=== PATIENT | female | born 1990 | race Caucasian/White ===

== ENCOUNTER 2016-11-15 15:31 | Emergency (ER) | payer MEDICARE ==
[2016-11-15 16:00] VITALS: BMI 29.0
[2016-11-15 17:06] LABS: BASO # 0.1 K/uL (0.0-0.2); BASO % 0.5 % (0.0-2.0); EOS # 0.2 K/uL (0.0-0.7); EOS % 1.2 % (0.0-4.0); HEMATOCRIT 37.9 % (34.0-47.0); LYMPH # 3.9 K/uL (1.0-4.3); LYMPH % 26.5 % (20.0-40.0); MEAN CELL VOLUME 83.9 fL (81.0-99.0); MEAN CORPUSCULAR HEMOGLOBIN 27.3 pg (27.0-31.0); MEAN CORPUSCULAR HGB CONC 32.6 g/dL (33.0-37.0); MEAN PLATELET VOLUME 7.5 fL (7.2-11.7); MONO # 0.8 K/uL (0.0-0.8); MONO % 5.6 % (0.0-10.0); RED CELL DISTRIBUTION WIDTH 13.4 % (11.5-14.5); WHITE BLOOD COUNT 14.7 K/uL (4.8-10.8)
[2016-11-15 17:14] LABS: CHLORIDE 104 mmol/L (98-107); SODIUM 142 mmol/L (132-148)
[2016-11-15 17:16] LABS: BILIRUBIN,TOTAL < 0.1 mg/dL (0.2-1.3); GFR AFRICAN-AMERICAN > 60
[2016-11-15 17:17] LABS: ALB/GLOB RATIO 1.2 (1.0-2.1); ALKALINE PHOSPHATASE 94 U/L (38-126); AST/SGOT 23 U/L (14-36); CARBON DIOXIDE 26 mmol/L (22-30); TOTAL PROTEIN 7.4 g/dL (6.3-8.3)
[2016-11-15 17:18] LABS: ALCOHOL SERUM < 10 mg/dl (0-10)
--- NOTE | 2016-11-15 17:27 | C.PDOC ---
History Of Present Illness 26 year old female with a history of schizophrenia, presents to the ED accompanied by her mother with complaints that her TV is talking to her. Patient states it is making her upset and telling her to threaten other people. She has been angry but not acting out and notes she ran out of her medication a few months ago but never refilled it. Denies homicidal ideation, suicidal ideation, or any physical complaints at this time. Time Seen by Provider: 11/15/16 16:05 Chief Complaint (Nursing): Psychiatric Evaluation History Per: Patient History/Exam Limitations: no limitations Onset/Duration Of Symptoms: Days Current Symptoms Are (Timing): Still Present Suicide/Self Injury Attempted (Context): None Modifying Factor(s): None Severity: Mild Associated Symptoms: Anger. denies: Suicidal Thoughts Past Medical History Reviewed: Historical Data, Nursing Documentation, Vital Signs Vital Signs: Last Vital Signs Temp 98.2 F 11/15/16 19:04 Pulse 90 11/15/16 19:04 Resp 18 11/15/16 19:04 BP 118/84 11/15/16 19:04 Pulse Ox 98 11/15/16 19:12 - Medical History PMH: Personality Disorder, Schizophrenia Surgical History: No Surg Hx Family History: States: Unknown Family Hx - Social History Hx Tobacco Use: No Hx Alcohol Use: Yes (''OCCASSIONALLY'') Hx Substance Use: No Review Of Systems Except As Marked, All Systems Reviewed And Found Negative. Constitutional: Negative for: Fever, Chills Respiratory: Negative for: Shortness of Breath Psych: Positive for: Psychosis. Negative for: Suicidal ideation Physical Exam - Physical Exam Appears: Non-toxic, No Acute Distress Skin: Normal Color, Warm, Dry Head: Atraumatic, Normacephalic Oral Mucosa: Moist Cardiovascular: Rhythm Regular, No Murmur Respiratory: Normal Breath Sounds, No Rhonchi, No Wheezing Gastrointestinal/Abdominal: Soft, No Tenderness, No Guarding Extremity: Normal ROM Neurological/Psych: Oriented x3, Normal Speech, Normal Cognition ED Course And Treatment - Laboratory Results Result Diagrams: 11/15/16 17:03 11/15/16 17:03 O2 Sat by Pulse Oximetry: 98 (Room air) Pulse Ox Interpretation: Normal Progress Note: Crisis contacted, blood work and Urinalysis ordered and reviewed. Medical Decision Making Medical Decision Making: Pt is medically stable for PES evaluation / admission Pt seen by crisis, discussed with dr Charles plan ativan now, apt made at [facility] for tomorrow Disposition Counseled Patient/Family Regarding: Need For Followup - Disposition Disposition: HOME/ ROUTINE Disposition Time: 19:10 Condition: GOOD Additional Instructions: Follow up at [facility] tomorrow Instructions: Schizophrenia (ED) - Clinical Impression Clinical Impression: Schizophrenia - Scribe Statement The provider has reviewed the documentation as recorded by the Scribe Kaur Shanks. Provider Attestation: All medical record entries made by the Scribe were at my direction and personally dictated by me. I have reviewed the chart and agree that the record accurately reflects my personal performance of the history, physical exam, medical decision making, and the department course for this patient. I have also personally directed, reviewed, and agree with the discharge instructions and disposition.
[2016-11-15 17:43] LABS: ALT/SGPT 15 U/L (9-52)
[2016-11-15 17:44] LABS: BLOOD UREA NITROGEN 10 mg/dL (7-17); GLUCOSE,RANDOM 92 mg/dL (65-105)
[2016-11-15 17:57] LABS: RBC URINE 1 /hpf (0-3); URINE BACTERIA RARE (<OCC); URINE BILIRUBIN NEGATIVE (NEGATIVE); URINE BLOOD NEGATIVE (NEGATIVE); URINE COLOR Yellow (YELLOW); URINE GLUCOSE (UA) NORMAL (Normal); URINE KETONE NEGATIVE (NEGATIVE); URINE LEUKOCYTE ESTERASE NEG Leu/uL (Negative); URINE PROTEIN NEGATIVE (NEGATIVE); URINE UROBILINOGEN NORMAL mg/dL (0.2-1.0); WBC URINE 2 /hpf (0-5)
[2016-11-15 19:05] VITALS: BP 118/84; PULSE 90; RESP 18; TEMP 98.2
[2016-11-15 19:12] VITALS: O2SAT 98
== END 2016-11-15 19:15 | disposition home or self-care (01) ==
LOC: C.ER 15:31
DX: F20.9 Schizophrenia, unspecified (principal)
CPT/HCPCS: 36415; 80053; 81001; 84703; 85025; 99284; G0480

== ENCOUNTER 2016-12-31 23:13 | Emergency (ER) | payer MEDICARE ==
[2016-12-31 23:13] VITALS: BMI 29.0
[2017-01-01] MEDS ORDERED: Naproxen 550 mg Tab PO STA (00:08)
[2017-01-01] MEDS ORDERED: Naproxen 550 mg Tab PO ONE (00:14)
[2017-01-01 00:20] VITALS: BP 118/81; PULSE 72; RESP 18; TEMP 98.2; O2SAT 99
--- NOTE | 2017-01-01 00:34 | C.PDOC ---
Time Seen by Provider: 12/31/16 23:45 Chief Complaint (Nursing): Dental Pain History Per: Patient Onset/Duration Of Symptoms: Days, Intermittent Episodes Current Symptoms Are (Timing): Still Present Severity: Moderate Dental/Oral: 1 - Pain Description Of Pain/Injury (Context): Pain radiating to left side of head. Quality: Positive for: "Pain" Additional History Per: Prior Records Past Medical History Reviewed: Historical Data, Nursing Documentation, Vital Signs Vital Signs: Last Vital Signs Temp 98.2 F 12/31/16 23:20 Pulse 72 01/01/17 00:19 Resp 18 01/01/17 00:19 BP 118/81 01/01/17 00:19 Pulse Ox 99 01/01/17 00:19 - Medical History PMH: Personality Disorder, Schizophrenia Surgical History: No Surg Hx Family History: States: Unknown Family Hx - Social History Hx Tobacco Use: No Hx Alcohol Use: Yes (''OCCASSIONALLY'') Hx Substance Use: No - Immunization History Hx Tetanus Toxoid Vaccination: No Hx Influenza Vaccination: No Hx Pneumococcal Vaccination: No Review Of Systems Except As Marked, All Systems Reviewed And Found Negative. Constitutional: Negative for: Fever, Weakness Eyes: Negative for: Pain, Vision Change ENT: Negative for: Ear Pain, Ear Discharge, Throat Pain, Throat Swelling Cardiovascular: Negative for: Chest Pain Respiratory: Negative for: Cough, Shortness of Breath Gastrointestinal: Negative for: Nausea, Vomiting, Abdominal Pain Musculoskeletal: Negative for: Neck Pain Skin: Negative for: Rash Neurological: Positive for: Headache. Negative for: Weakness, Numbness, Incoordination, Change in Speech, Confusion, Seizures, Altered Mental Status, Dizziness Physical Exam - Physical Exam Appears: Non-toxic, No Acute Distress Skin: Normal Color, Warm, Dry, No Rash Head: Atraumatic, Normacephalic Eye(s): bilateral: Normal Inspection, PERRL, EOMI Ear(s): Bilateral: Normal Oral Mucosa: Moist, No Drooling, No Trismus Tongue: Normal Appearing Lips: Normal Appearing Teeth: Caries, Tender To Palpation (left upper third molar) Gingiva: No Abscess Throat: Normal Neck: Normal ROM, Supple Lymphatic: No Adenopathy Cardiovascular: Rhythm Regular Respiratory: Normal Breath Sounds, No Accessory Muscle Use Gastrointestinal/Abdominal: Soft, No Tenderness Extremity: Normal ROM Neurological/Psych: Oriented x3, Normal Speech, Normal Cranial Nerves, Normal Motor, Normal Sensation ED Course And Treatment O2 Sat by Pulse Oximetry: 99 Pulse Ox Interpretation: Normal Reassessment Condition: Improved Disposition Counseled Patient/Family Regarding: Diagnosis, Need For Followup, Rx Given - Disposition Referrals: Samara Love MD [Staff Provider] - Disposition: HOME/ ROUTINE Disposition Time: 00:36 Condition: IMPROVED Additional Instructions: Follow up with your primary doctor and with your dentist. Return to the ER if you develop fever, redness, swelling, pus drainage, worsening of symptoms or if you have any other concerns. Prescriptions: Naproxen [Naprosyn] 1 tab PO BID PRN #20 tab PRN Reason: Pain Penicillin VK [Pen-Vee K] 2 tab PO BID #28 tab Instructions: Toothache (ED) - Clinical Impression Clinical Impression: Toothache
== END 2017-01-01 00:40 | disposition home or self-care (01) ==
LOC: C.ER 23:13
DX: K08.89 Other specified disorders of teeth and supporting structures (principal)

== ENCOUNTER 2017-09-03 19:17 | Emergency (ER) | payer MEDICARE ==
[2017-09-03 19:17] VITALS: BMI 29.0
[2017-09-03 20:26] VITALS: RESP 20
--- NOTE | 2017-09-03 22:39 | C.PDOC ---
History Of Present Illness 26 y/o female presents to the ED for evaluation after experiencing episodes of vomiting today. Patient states she bought a cactus plant and suspects this may have caused her to become sick. After ED arrival, patient began requesting food to eat. Patient was informed that since her initial complaint was related to vomiting, she cannot be given meals at this time. Patient grew increasingly agitated and verbalized suicidal ideation. She denies fever, chills, abdominal pain at this time. Time Seen by Provider: 09/03/17 21:33 Chief Complaint (Nursing): GI Problem History Per: Patient History/Exam Limitations: no limitations Onset/Duration Of Symptoms: Hrs Current Symptoms Are (Timing): Still Present Additional History Per: Patient Past Medical History Reviewed: Historical Data, Nursing Documentation, Vital Signs Vital Signs: Last Vital Signs Temp 98.6 F 09/04/17 05:30 Pulse 94 H 09/04/17 05:30 Resp 20 09/04/17 05:30 BP 102/74 09/04/17 05:30 Pulse Ox 100 09/04/17 07:01 - Medical History PMH: Migraine, Personality Disorder, Schizophrenia Denies: HIV, HTN, Chronic Kidney Disease, Seizures, Sexually Transmitted Disease Surgical History: No Surg Hx Family History: States: Unknown Family Hx - Social History Hx Tobacco Use: No Hx Alcohol Use: No Hx Substance Use: No - Immunization History Hx Tetanus Toxoid Vaccination: No Hx Influenza Vaccination: No Hx Pneumococcal Vaccination: No Review Of Systems Constitutional: Negative for: Fever, Chills Gastrointestinal: Positive for: Vomiting. Negative for: Abdominal Pain Physical Exam - Physical Exam Appears: Non-toxic Skin: Normal Color, Warm, Dry Head: Atraumatic, Normacephalic Eye(s): bilateral: Normal Inspection Oral Mucosa: Moist Neck: Supple Chest: Symmetrical, No Deformity, No Tenderness Cardiovascular: Rhythm Regular, No Murmur Respiratory: Normal Breath Sounds, No Rales, No Rhonchi, No Wheezing Extremity: Normal ROM, Capillary Refill (less than 2 seconds ) Neurological/Psych: Oriented x3, Normal Speech, Normal Cognition Gait: Steady ED Course And Treatment - Laboratory Results Result Diagrams: 09/04/17 00:09 09/04/17 00:09 O2 Sat by Pulse Oximetry: 100 Medical Decision Making Medical Decision Making: Bloodwork and UA ordered and reviewed. Ativan IM and Haldol IM administered. Patient placed on 1:1 observation and is pending crisis evaluation. 60am pt has been cleared by crisis team and Dr Koo; I hhave requested a re- assessment of patient, to be done on next shift. 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 - Scribe Statement The provider has reviewed the documentation as recorded by the Scribe (Elizabeth Gomez) All medical record entries made by the Scribe were at my direction and personally dictated by me. I have reviewed the chart and agree that the record accurately reflects my personal performance of the history, physical exam, medical decision making, and the department course for this patient. I have also personally directed, reviewed, and agree with the discharge instructions and disposition. Physician Patient Turnover Patient Signed Over To: Leticia Marquez Handoff Comments: pending re-evaluation by crisis team for dispo
[2017-09-04 00:12] LABS: BASO # 0.1 K/uL (0.0-0.2); BASO % 0.6 % (0.0-2.0); EOS # 0.1 K/uL (0.0-0.7); EOS % 0.4 % (0.0-4.0); HEMOGLOBIN 11.8 g/dL (11.0-16.0); LYMPH # 3.2 K/uL (1.0-4.3); MEAN CELL VOLUME 82.3 fL (81.0-99.0); MEAN CORPUSCULAR HEMOGLOBIN 27.5 pg (27.0-31.0); MEAN CORPUSCULAR HGB CONC 33.4 g/dL (33.0-37.0); MEAN PLATELET VOLUME 7.7 fL (7.2-11.7); MONO # 0.6 K/uL (0.0-0.8); MONO % 4.1 % (0.0-10.0); NEUT # 10.5 K/uL (1.8-7.0); NEUT % 72.9 % (50.0-75.0); RBC 4.3 Mil/uL (3.80-5.20); RED CELL DISTRIBUTION WIDTH 14.1 % (11.5-14.5); WHITE BLOOD COUNT 14.5 K/uL (4.8-10.8)
[2017-09-04 00:19] LABS: GRANULAR CAST 3 /lpf (0-1); SQUAMOUS EPITHIAL 21 /hpf (0-5); URINE AMORPHOUS SEDIMENT OCC /ul (<OCC); URINE BACTERIA FEW (<OCC); URINE BILIRUBIN NEGATIVE (NEGATIVE); URINE BLOOD NEGATIVE (NEGATIVE); URINE CALCIUM OXALATE CRYSTALS OCC /hpf (<OCC); URINE CLARITY Hazy (Clear); URINE COLOR Yellow (YELLOW); URINE GLUCOSE (UA) NORMAL (Normal); URINE LEUKOCYTE ESTERASE NEG Leu/uL (Negative); URINE NITRATE NEGATIVE (NEGATIVE); URINE PROTEIN NEGATIVE (NEGATIVE); URINE UROBILINOGEN NORMAL mg/dL (0.2-1.0)
[2017-09-04 00:22] LABS: ALB/GLOB RATIO 1.1 (1.0-2.1); ALBUMIN 3.8 g/dL (3.5-5.0); ALT/SGPT 25 U/L (9-52); AST/SGOT 23 U/L (14-36); BLOOD UREA NITROGEN 9 mg/dL (7-17); CALCIUM 9.5 mg/dl (8.6-10.4); GFR AFRICAN-AMERICAN > 60; GFR NON-AFRICAN AMERICAN > 60
[2017-09-04 00:27] LABS: BARBITURATES, UR NEGATIVE (NEGATIVE); BENZODIAZEPINES, UR NEGATIVE (NEGATIVE); OPIATES, UR NEGATIVE (NEGATIVE); PHENCYCLIDINE, UR NEGATIVE (NEGATIVE)
[2017-09-04 07:37] VITALS: O2SAT 99
[2017-09-04 08:56] VITALS: BP 108/75; PULSE 108; TEMP 98.5
== END 2017-09-04 09:18 | disposition home or self-care (01) ==
LOC: C.ER 19:17
DX: F32.9 Major depressive disorder, single episode, unspecified (principal)
CPT/HCPCS: 80053; 81001; 85025; 96372; 99285; G0480; J1630; J2060

== ENCOUNTER 2017-09-19 12:30 | Emergency (ER) | payer MEDICARE, OTHER ==
[2017-09-19 12:46] VITALS: BMI 23.8
[2017-09-19 12:53] VITALS: O2SAT 96
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
[2017-09-19 14:11] VITALS: BP 112/79; PULSE 83; RESP 18; TEMP 98
== END 2017-09-19 13:30 | disposition home or self-care (01) ==
LOC: C.ER 12:30
DX: S16.1XXA Strain of muscle, fascia and tendon at neck level, initial encounter (principal); V43.52XA Car driver injured in collision with other type car in traffic accident, initial encounter

== ENCOUNTER 2017-09-26 12:42 | Emergency (ER) | payer MEDICARE, OTHER ==
[2017-09-26 12:55] VITALS: BMI 29.0
[2017-09-26 12:58] VITALS: BP 119/85; PULSE 97; RESP 18; TEMP 97.9; O2SAT 96
--- NOTE | 2017-09-26 13:12 | C.PDOC ---
History Of Present Illness 27 year old female presents to ED with complaints of migraine headache associated with nausea since this morning. She describes pain as pressure and just pain to frontal area. She reports past similar headaches in past, and that this is not the worst headache of her life. She took Tylenol without relief. She states last time she came to ED they gave her medications that worked. Denies fever, chills, visual changes, photophobia, weakness, numbness, change in sensation. Time Seen by Provider: 09/26/17 13:00 Chief Complaint (Nursing): Headache History Per: Patient History/Exam Limitations: no limitations Onset/Duration Of Symptoms: Hrs Current Symptoms Are (Timing): Still Present Quality: Pressure Preceeding Symptoms: Known Migraine Symptoms. denies: Visual Disturbances Associated Symptoms: Nausea. denies: Photophobia, Blurred Vision, Vomiting, Extremity Weakness Recent travel outside of the [place]: No Additional History Per: Patient Past Medical History Reviewed: Historical Data, Nursing Documentation, Vital Signs Vital Signs: Last Vital Signs Temp 97.9 F 09/26/17 12:55 Pulse 97 H 09/26/17 12:55 Resp 18 09/26/17 12:55 BP 119/85 09/26/17 12:55 Pulse Ox 96 09/26/17 13:29 - Medical History PMH: Migraine, Personality Disorder, Schizophrenia Denies: HIV, HTN, Chronic Kidney Disease, Seizures, Sexually Transmitted Disease Family History: States: Unknown Family Hx - Social History Hx Tobacco Use: No Hx Alcohol Use: No Hx Substance Use: No - Immunization History Hx Tetanus Toxoid Vaccination: No Hx Influenza Vaccination: No Hx Pneumococcal Vaccination: No Review Of Systems Except As Marked, All Systems Reviewed And Found Negative. Constitutional: Negative for: Fever, Chills Eyes: Negative for: Vision Change Gastrointestinal: Positive for: Nausea. Negative for: Vomiting, Abdominal Pain Neurological: Positive for: Headache. Negative for: Weakness, Numbness, Dizziness Physical Exam - Physical Exam Appears: Well, Non-toxic, No Acute Distress Skin: Normal Color, Warm, Dry Head: Atraumatic, Normacephalic Eye(s): bilateral: Normal Inspection, PERRL, EOMI, Other (no nystagmus) Oral Mucosa: Moist Neck: Supple, No Other (no meningeal signs) Chest: Symmetrical, No Tenderness Cardiovascular: Rhythm Regular, No Edema, No Murmur Respiratory: Normal Breath Sounds, No Accessory Muscle Use, No Rales, No Rhonchi , No Wheezing Extremity: Normal ROM (Able to move all extremities), No Tenderness, Capillary Refill (<2 seconds), No Deformity, No Swelling Neurological/Psych: Oriented x3, Normal Speech, Normal Cranial Nerves (2-12 grossly intact), Normal Motor (Equal 5/5 strength bilaterally), Normal Sensation , No Other (no focal deficits) ED Course And Treatment O2 Sat by Pulse Oximetry: 96 (RA) Pulse Ox Interpretation: Normal Medical Decision Making Medical Decision Making: Impressin: headache Plan: * Toradol * Reglan Reassess 1430 Patient reevaluated and reports feeling better, headache mostly resolved. She remains afebrile alert and oriented. No nuchal rigidity or neuro deficits. Patient is stable for discharge. Rx given. Patient advised to follow up with PCP Disposition Counseled Patient/Family Regarding: Diagnosis, Need For Followup, Rx Given - Disposition Referrals: Samara Love MD [Staff Provider] - Disposition: HOME/ ROUTINE Disposition Time: 14:39 Condition: STABLE Additional Instructions: Follow up with your primary medical doctor in 2-5 days for further evaluation. Take medications as prescribed. Return to the emergency department at any time if symptoms persist or worsen. 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 - Scribe Statement The provider has reviewed the documentation as recorded by the Peteribmireya Gomez All medical record entries made by the Sherri were at my direction and personally dictated by me. I have reviewed the chart and agree that the record accurately reflects my personal performance of the history, physical exam, medical decision making, and the department course for this patient. I have also personally directed, reviewed, and agree with the discharge instructions and disposition.
== END 2017-09-26 14:53 | disposition home or self-care (01) ==
LOC: C.ER 12:42
DX: R51 Headache (principal)
CPT/HCPCS: 96372; 99284; J1885

== ENCOUNTER 2017-10-21 15:16 | Emergency (ER) | payer MEDICARE, OTHER ==
[2017-10-21 15:17] VITALS: BMI 29.0
[2017-10-21 15:32] VITALS: O2SAT 100
[2017-10-21] MEDS ORDERED: Apap-Butalbital-Caffeine 325-50-40mg Tab PO STA (15:48)
[2017-10-21] MEDS ORDERED: Apap-Butalbital-Caffeine 325-50-40mg Tab ONE (15:58)
[2017-10-21 16:10] VITALS: BP 110/79; PULSE 89; RESP 18; TEMP 97.9
--- NOTE | 2017-10-21 16:23 | C.PDOC ---
History Of Present Illness 27-year-old female, presents to the emergency department with complaints of migraine headache since yesterday and needs refill of her medication. She reports history of migraines and this feels similar to prior headaches. She called Dr Love who is unable to see her until next month. She reports nausea yesterday but not today and denies any vomiting. Denies any fever, neck pain, vision changes, dizziness or other associated complaints. Time Seen by Provider: 10/21/17 15:42 Chief Complaint (Nursing): Med Refill History Per: Patient History/Exam Limitations: no limitations Current Symptoms Are (Timing): Still Present Past Medical History Reviewed: Historical Data, Nursing Documentation, Vital Signs Vital Signs: Last Vital Signs Temp 97.9 F 10/21/17 16:09 Pulse 89 10/21/17 16:09 Resp 18 10/21/17 16:09 BP 110/79 10/21/17 16:09 Pulse Ox 100 10/21/17 16:40 - Medical History PMH: Migraine, Personality Disorder, Schizophrenia Family History: States: No Known Family Hx - Social History Hx Tobacco Use: No Hx Alcohol Use: No Hx Substance Use: No - Immunization History Hx Tetanus Toxoid Vaccination: No Hx Influenza Vaccination: No Hx Pneumococcal Vaccination: No Review Of Systems Eyes: Negative for: Pain, Vision Change Respiratory: Negative for: Cough Gastrointestinal: Positive for: Nausea. Negative for: Vomiting Musculoskeletal: Negative for: Neck Pain, Back Pain Neurological: Positive for: Headache. Negative for: Weakness, Numbness, Dizziness Physical Exam - Physical Exam Appears: Non-toxic, No Acute Distress, Other (strong body odor) Skin: Normal Color, Warm, Dry, No Rash Head: Atraumatic, Normacephalic Eye(s): bilateral: Normal Inspection, PERRL, EOMI Nose: Normal Oral Mucosa: Moist Neck: Normal ROM Chest: Symmetrical Cardiovascular: Rhythm Regular, No Murmur Respiratory: Normal Breath Sounds, No Wheezing Extremity: Normal ROM, No Tenderness, No Deformity, No Swelling Neurological/Psych: Oriented x3, Normal Speech, Normal Cranial Nerves, No Cerebellar Signs, Normal Motor, Normal Sensation, Other (no focal deficit) Gait: Steady ED Course And Treatment O2 Sat by Pulse Oximetry: 100 Medical Decision Making Medical Decision Making: Patient with history of migraines and asking for medication refill. Fioricet PO given. Patient in no acute distress with normal neuro and stable vital signs. Rx given. Patient instructed to follow up with PMD Disposition Counseled Patient/Family Regarding: Diagnosis, Need For Followup, Rx Given - Disposition Referrals: Samara Love MD [Staff Provider] - Disposition: HOME/ ROUTINE Disposition Time: 16:05 Condition: GOOD Additional Instructions: Follow up with your primary medical doctor in 2-5 days for further evaluation. Take medications as prescribed. Return to the emergency department at any time if symptoms persist or worsen. 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 - Scribe Statement The provider has reviewed the documentation as recorded by the Scribe (Simon Cutler) All medical record entries made by the Scribe were at my direction and personally dictated by me. I have reviewed the chart and agree that the record accurately reflects my personal performance of the history, physical exam, medical decision making, and the department course for this patient. I have also personally directed, reviewed, and agree with the discharge instructions and disposition.
== END 2017-10-21 16:10 | disposition home or self-care (01) ==
LOC: C.ER 15:16
DX: G43.909 Migraine, unspecified, not intractable, without status migrainosus (principal)

== ENCOUNTER 2017-11-01 11:41 | Emergency (ER) | payer MEDICARE ==
[2017-11-01 11:41] VITALS: BMI 29.0
[2017-11-01 12:08] VITALS: BP 119/83; PULSE 94; RESP 18; TEMP 97.6; O2SAT 99
== END 2017-11-01 12:15 | disposition left against medical advice (07) ==
LOC: C.ER 11:41
DX: Z02.89 Encounter for other administrative examinations (principal); G43.909 Migraine, unspecified, not intractable, without status migrainosus

== ENCOUNTER 2017-11-05 19:00 | Emergency (ER) | payer MEDICARE ==
[2017-11-05 19:00] VITALS: BMI 29.0
[2017-11-05 19:13] VITALS: BP 110/70; PULSE 70; RESP 14; TEMP 97.7; O2SAT 97
[2017-11-05] MEDS ORDERED: Apap-Butalbital-Caffeine 325-50-40mg Tab PO STA ×2 (19:54)
[2017-11-05] MEDS ORDERED: Apap-Butalbital-Caffeine 325-50-40mg Tab ONE (20:07)
--- NOTE | 2017-11-05 20:27 | C.PDOC ---
History Of Present Illness 27 year old female, whose PMHx includes migraine headaches, presents to the ED for evaluation of headache which worsened tonight. Patient states her symptoms are similar to prior and she ran out of her medications. She reports associated nausea and photophobia. She denies vomiting, dizziness, neck pain. Time Seen by Provider: 11/05/17 19:46 Chief Complaint (Nursing): Headache History Per: Patient History/Exam Limitations: no limitations Onset/Duration Of Symptoms: Days Current Symptoms Are (Timing): Worse Quality: "Pain" Preceeding Symptoms: Known Migraine Symptoms Associated Symptoms: Photophobia, Nausea. denies: Vomiting Additional History Per: Patient Past Medical History Reviewed: Historical Data, Nursing Documentation, Vital Signs Vital Signs: Last Vital Signs Temp 97.7 F 11/05/17 19:08 Pulse 70 11/05/17 19:08 Resp 14 11/05/17 19:08 BP 110/70 11/05/17 19:08 Pulse Ox 97 11/05/17 20:28 - Medical History PMH: Migraine, Personality Disorder, Schizophrenia Denies: HIV, HTN, Chronic Kidney Disease, Seizures, Sexually Transmitted Disease Surgical History: No Surg Hx Family History: States: Unknown Family Hx - Social History Hx Tobacco Use: No Hx Alcohol Use: No Hx Substance Use: No - Immunization History Hx Tetanus Toxoid Vaccination: No Hx Influenza Vaccination: No Hx Pneumococcal Vaccination: No Review Of Systems Eyes: Positive for: Other (photophobia ) Gastrointestinal: Positive for: Nausea. Negative for: Vomiting Musculoskeletal: Negative for: Neck Pain Neurological: Positive for: Headache. Negative for: Dizziness Physical Exam - Physical Exam Appears: Non-toxic, No Acute Distress Skin: Normal Color, Warm, Dry Head: Atraumatic, Normacephalic Eye(s): bilateral: Normal Inspection Oral Mucosa: Moist Neck: Normal ROM, Supple Chest: Symmetrical, No Deformity, No Tenderness Cardiovascular: Rhythm Regular, No Murmur Respiratory: Normal Breath Sounds, No Rales, No Rhonchi, No Wheezing Extremity: Normal ROM, Capillary Refill (less than 2 seconds ) Neurological/Psych: Oriented x3, Normal Speech, Normal Cognition Gait: Steady ED Course And Treatment O2 Sat by Pulse Oximetry: 97 (on RA) Pulse Ox Interpretation: Normal Progress Note: Fioricet PO and Reglan PO administered. On reassessment, patient is resting comfortably, showing no signs of distress and reports an improvement in her headache. Patient is advised to f/u with her PMD within 1-2 days for further evalaution. 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 - Scribe Statement The provider has reviewed the documentation as recorded by the Scribe (Elizabeth Gomez) All medical record entries made by the Scribe were at my direction and personally dictated by me. I have reviewed the chart and agree that the record accurately reflects my personal performance of the history, physical exam, medical decision making, and the department course for this patient. I have also personally directed, reviewed, and agree with the discharge instructions and disposition.
== END 2017-11-05 20:33 | disposition home or self-care (01) ==
LOC: C.ER 19:00
DX: G43.909 Migraine, unspecified, not intractable, without status migrainosus (principal)

== ENCOUNTER 2017-11-06 02:19 | Emergency (ER) | payer MEDICARE ==
[2017-11-06 02:20] VITALS: BMI 29.0
[2017-11-06 02:34] VITALS: O2SAT 99
--- NOTE | 2017-11-06 04:28 | CT ---
EXAM: CT Head Without Intravenous Contrast CLINICAL HISTORY: 27 years old, female; Pain; Headache and other: Dizziness; Patient HX: 04-19-14 images sent TECHNIQUE: Axial computed tomography images of the head/brain without intravenous contrast. All CT scans at this facility use one or more dose reduction techniques, viz.: automated exposure control; ma/kV adjustment per patient size (including targeted exams where dose is matched to indication; i.e. head); or iterative reconstruction technique. Coronal and sagittal reformatted images were created and reviewed. COMPARISON: CT - HEAD W/O CONTRAST 2014-04-19 16:10 FINDINGS: Brain: No intracranial hemorrhage. No mass. No definite edema. Ventricles: No hydrocephalus. Bones/joints: No acute fracture. Soft tissues: Dermal calcifications. Sinuses: No acute sinusitis. Mastoid air cells: No mastoid effusion. Orbits: Unremarkable as visualized. IMPRESSION: 1. No definite acute intracranial abnormality. 2. Incidental/non-acute findings are described above.
--- NOTE | 2017-11-06 04:45 | C.PDOC ---
History Of Present Illness 27 years old female with Hx of Schizophrenia presents to ED for concern of migraine headache. Patient was seen earlier and discharged few hours ago for similar symptoms. Patient states headache worsened and is requesting pain medication. Denies fever neck pain, URI sx, dizziness, photophobia, visual changes or any other complaints. Time Seen by Provider: 11/06/17 02:45 Chief Complaint (Nursing): Headache History Per: Patient History/Exam Limitations: no limitations Onset/Duration Of Symptoms: Hrs Current Symptoms Are (Timing): Still Present Preceeding Symptoms: None Associated Symptoms: denies: Photophobia, Blurred Vision Recent travel outside of the [place]: No Past Medical History Reviewed: Historical Data, Nursing Documentation, Vital Signs Vital Signs: Last Vital Signs Temp 97.8 F 11/06/17 04:50 Pulse 80 11/06/17 04:50 Resp 18 11/06/17 04:50 BP 102/68 11/06/17 04:50 Pulse Ox 99 11/06/17 06:07 - Medical History PMH: Migraine, Personality Disorder, Schizophrenia Surgical History: No Surg Hx Family History: States: Unknown Family Hx - Social History Hx Tobacco Use: No Hx Alcohol Use: No Hx Substance Use: No - Immunization History Hx Tetanus Toxoid Vaccination: No Hx Influenza Vaccination: No Hx Pneumococcal Vaccination: No Review Of Systems Constitutional: Negative for: Fever, Chills Eyes: Negative for: Vision Change Gastrointestinal: Negative for: Nausea, Vomiting, Diarrhea Neurological: Positive for: Headache. Negative for: Weakness, Numbness, Dizziness Physical Exam - Physical Exam Appears: Non-toxic, No Acute Distress Skin: Warm, Dry Head: Atraumatic, Normacephalic Eye(s): bilateral: Normal Inspection, PERRL, EOMI Oral Mucosa: Moist Neck: Supple Neurological/Psych: Oriented x3, Normal Speech, Normal Cognition, No Cerebellar Signs, Normal Motor, Normal Sensation Gait: Steady ED Course And Treatment O2 Sat by Pulse Oximetry: 99 (RA) Pulse Ox Interpretation: Normal - CT Scan/US CT Head Other Rad Studies (CT/US): Read By Radiologist, Radiology Report Reviewed CT/US Interpretation: EXAM: CT Head Without Intravenous Contrast. CLINICAL HISTORY: 27 years old, female; Pain; Headache and other: Dizziness; Patient HX : 04-19-14 images sent. TECHNIQUE: Axial computed tomography images of the head /brain without intravenous contrast. All CT scans at. this facility use one or more dose reduction techniques, viz.: automated exposure control; ma/kV. adjustment per patient size (including targeted exams where dose is matched to indication; i.e. head);. or iterative reconstruction technique. Coronal and sagittal reformatted images were created and reviewed. COMPARISON: CT - HEAD W /O CONTRAST 2014-04-19 16:10. FINDINGS: Brain: No intracranial hemorrhage. No mass. No definite edema. Ventricles: No hydrocephalus. Bones/joints: No acute fracture. Soft tissues: Dermal calcifications. Sinuses: No acute sinusitis. Mastoid air cells: No mastoid effusion. Orbits: Unremarkable as visualized. IMPRESSION: 1. No definite acute intracranial abnormality. 2. Incidental/non- acute findings are described above Progress Note: Administered Reglan and Toradol. Ordered Head CT. 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 - Scribe Statement The provider has reviewed the documentation as recorded by the Peteribmireya Bello All medical record entries made by the Scribe were at my direction and personally dictated by me. I have reviewed the chart and agree that the record accurately reflects my personal performance of the history, physical exam, medical decision making, and the department course for this patient. I have also personally directed, reviewed, and agree with the discharge instructions and disposition.
[2017-11-06 04:54] VITALS: BP 102/68; PULSE 80; RESP 18; TEMP 97.8
== END 2017-11-06 04:54 | disposition home or self-care (01) ==
LOC: C.ER 02:19
DX: G43.909 Migraine, unspecified, not intractable, without status migrainosus (principal)
CPT/HCPCS: 70450; 96374; 96375; 99285; J1885; J2765

== ENCOUNTER 2017-11-20 13:36 | Emergency (ER) | payer MEDICARE, OTHER ==
[2017-11-20 13:36] VITALS: BMI 29.0
[2017-11-20 13:47] VITALS: BP 125/80; PULSE 101; RESP 18; TEMP 98; O2SAT 100
--- NOTE | 2017-11-20 13:59 | C.PDOC ---
History Of Present Illness 27 year old female presents to the ER with a complaint of a migraine headache, requesting a refill of her fioricet. Denies photophobia, fever, or neck stiffness. Chief Complaint (Nursing): Headache History Per: Patient History/Exam Limitations: no limitations Onset/Duration Of Symptoms: Hrs Current Symptoms Are (Timing): Still Present Preceeding Symptoms: None Associated Symptoms: denies: Photophobia, Blurred Vision, Nausea, Vomiting, Extremity Weakness Recent travel outside of the [place]: No Past Medical History Reviewed: Historical Data, Nursing Documentation, Vital Signs Vital Signs: Last Vital Signs Temp 98 F 11/20/17 13:44 Pulse 101 H 11/20/17 13:44 Resp 18 11/20/17 13:44 BP 125/80 11/20/17 13:44 Pulse Ox 100 11/20/17 16:29 - Medical History PMH: Migraine, Personality Disorder, Schizophrenia Family History: States: Unknown Family Hx - Social History Hx Tobacco Use: No Hx Alcohol Use: No Hx Substance Use: No - Immunization History Hx Tetanus Toxoid Vaccination: No Hx Influenza Vaccination: No Hx Pneumococcal Vaccination: No Review Of Systems Constitutional: Negative for: Fever Musculoskeletal: Negative for: Other (Neck stiffness) Neurological: Positive for: Headache. Negative for: Other (Photophobia) Physical Exam - Physical Exam Appears: Non-toxic Skin: Normal Color, Warm, Dry Head: Atraumatic, Normacephalic Eye(s): bilateral: Normal Inspection, PERRL, EOMI Oral Mucosa: Moist Neck: Normal, Supple Chest: Symmetrical, No Tenderness Cardiovascular: Rhythm Regular Respiratory: Normal Breath Sounds, No Rales, No Rhonchi, No Wheezing Extremity: Normal ROM (x4) Neurological/Psych: Oriented x3, Normal Speech, Normal Cranial Nerves ED Course And Treatment O2 Sat by Pulse Oximetry: 100 (Room air) Pulse Ox Interpretation: Normal Progress Note: Fioricet administered, Rx refilled. Disposition - Disposition Referrals: Samara Love MD [Staff Provider] - Disposition: HOME/ ROUTINE Disposition Time: 14:05 Condition: GOOD Additional Instructions: Thank you for letting us take care of you today. The emergency medical care you received today was directed at your acute symptoms. If you were prescribed any medication, please fill it and take as directed. It may take several days for your symptoms to resolve. Return to the Emergency Department if your symptoms worsen, do not improve, or if you have any other problems. Please contact your doctor or call one of the physicians/clinics you have been referred to that are listed on the Patient Visit Information form that is included in your discharge packet. Bring any paperwork you were given at discharge with you along with any medications you are taking to your follow up visit. Our treatment cannot replace ongoing medical care by a primary care provider (PCP) outside of the emergency department. Thank you for allowing the [facility] team to be part of your care today. YOU MUST SEE YOUR PRIMARY CARE DOCTOR FOR DAILY MEDICATION REFILLS Follow up with your primary doctor in 3-5 days for re-evaluation and further management. Prescriptions: Acetaminophen/Butalbital/Caf [Fioricet] 1 tab PO Q8 PRN #10 tab PRN Reason: Migraine Headache Ondansetron ODT [Zofran ODT] 4 mg PO Q8 PRN #10 odt PRN Reason: Nausea/Vomiting Instructions: Migraine Headache (DC) Forms: [employer] (Arabic) - Clinical Impression Clinical Impression: Head ache - Scribe Statement The provider has reviewed the documentation as recorded by the Scribe Julian Guerra All medical record entries made by the Scribe were at my direction and personally dictated by me. I have reviewed the chart and agree that the record accurately reflects my personal performance of the history, physical exam, medical decision making, and the department course for this patient. I have also personally directed, reviewed, and agree with the discharge instructions and disposition.
[2017-11-20] MEDS ORDERED: Apap-Butalbital-Caffeine 325-50-40mg Tab PO STA (14:15)
[2017-11-20] MEDS ORDERED: Apap-Butalbital-Caffeine 325-50-40mg Tab ONE (14:20)
== END 2017-11-20 14:20 | disposition home or self-care (01) ==
LOC: C.ER 13:36
DX: R51 Headache (principal)

== ENCOUNTER 2017-11-20 19:16 | Emergency (ER) | payer MEDICARE ==
[2017-11-20 19:17] VITALS: BMI 29.0
[2017-11-20 19:38] VITALS: O2SAT 100
[2017-11-20] MEDS ORDERED: Magnesium Sulfate 1 gm in D5W 1 GM/100 ML BAG IVPB STA (20:06)
[2017-11-20] MEDS ORDERED: Sodium Chloride 0.9% 1,000 ML IV STA (20:06)
[2017-11-20] MEDS ORDERED: Dexamethasone 4 mg/1 ml IVP STA (20:06)
--- NOTE | 2017-11-20 20:06 | C.PDOC ---
History Of Present Illness 27 y/o female presents to the ER complaining of a persistent migraine. Patient states that she was seen in [facility] earlier today for similar symptoms and Fioricet refill. She was administered Fioricet and she was discharged with a prescription for Fioricet. She had the prescription refilled but she does not feel any improvement. 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 She has photophobia and mild nausea. Chief Complaint (Nursing): Headache History Per: Patient History/Exam Limitations: no limitations Onset/Duration Of Symptoms: Days Current Symptoms Are (Timing): Still Present Severity: Moderate Associated Symptoms: Photophobia, Nausea Past Medical History Reviewed: Historical Data, Nursing Documentation, Vital Signs Vital Signs: Last Vital Signs Temp 98.5 F 11/20/17 22:20 Pulse 77 11/20/17 22:20 Resp 18 11/20/17 22:20 BP 117/87 11/20/17 22:20 Pulse Ox 100 11/20/17 22:20 - Medical History PMH: Migraine, Personality Disorder, Schizophrenia Denies: HIV, HTN, Chronic Kidney Disease, Seizures, Sexually Transmitted Disease Surgical History: No Surg Hx Family History: States: No Known Family Hx - Social History Hx Tobacco Use: No Hx Alcohol Use: No Hx Substance Use: No - Immunization History Hx Tetanus Toxoid Vaccination: No Hx Influenza Vaccination: No Hx Pneumococcal Vaccination: No Review Of Systems Except As Marked, All Systems Reviewed And Found Negative. Constitutional: Negative for: Fever, Chills Eyes: Positive for: Other (photophobia) Gastrointestinal: Positive for: Nausea. Negative for: Vomiting Neurological: Positive for: Headache Physical Exam - Physical Exam Appears: Non-toxic, No Acute Distress Skin: Normal Color, Warm Head: Atraumatic, Normacephalic Eye(s): bilateral: Normal Inspection, PERRL, EOMI Neurological/Psych: Oriented x3, Normal Speech ED Course And Treatment O2 Sat by Pulse Oximetry: 100 (RA) Pulse Ox Interpretation: Normal Progress - Re-Evaluation Re-evaluation Note: 11/20/17 22:25 IMPROVED FROM PRIOR. TOLERATING PO WO DIFF - Data Reviewed Data Reviewed: Old records Medical Decision Making Medical Decision Making: Plan: --Reglan IV --Fioricet PO --Decadron IV --Toradol IV --IV Fluids Disposition Counseled Patient/Family Regarding: Studies Performed, Diagnosis, Need For Followup, Rx Given - Disposition Referrals: YOUR,PMD [Other] Disposition: HOME/ ROUTINE Disposition Time: 22:25 Condition: IMPROVED Prescriptions: Metoclopramide [Reglan] 1 tab PO TID PRN #25 tab PRN Reason: Nausea/Vomiting Instructions: Migraine Headache (DC) Forms: [facility] (Gabonese), Work Excuse - Clinical Impression Clinical Impression: Migraine - Scribe Statement The provider has reviewed the documentation as recorded by the Sherri Ray Provider Attestation: All medical record entries made by the Sherri were at my direction and personally dictated by me. I have reviewed the chart and agree that the record accurately reflects my personal performance of the history, physical exam, medical decision making, and the department course for this patient. I have also personally directed, reviewed, and agree with the discharge instructions and disposition.
[2017-11-20] MEDS ORDERED: Dexamethasone 4 mg/1 ml ONE (20:27)
[2017-11-20] MEDS ORDERED: Magnesium Sulfate 1 gm in D5W 1 GM/100 ML BAG IVPB ONE (20:28)
[2017-11-20 22:21] VITALS: BP 117/87; PULSE 77; RESP 18; TEMP 98.5
== END 2017-11-20 22:45 | disposition home or self-care (01) ==
LOC: C.ER 19:16
DX: G43.909 Migraine, unspecified, not intractable, without status migrainosus (principal)
CPT/HCPCS: 96365; 96372; 96375; 99284; J1100; J1885; J2765; J3030; J3475; J7040

== ENCOUNTER 2017-11-27 13:18 | Emergency (ER) | payer MEDICARE, OTHER ==
[2017-11-27 13:18] VITALS: BMI 29.0
[2017-11-27 13:35] VITALS: TEMP 97.8
--- NOTE | 2017-11-27 16:24 | C.PDOC ---
History Of Present Illness 27-year-old female, PMHx migraines, presents to the emergency department with complaints of headache. Patient states she gradually developed a headache associated with nausea and photophobia, yesterday. She is taking Fioricet with minimal relief She denies any thunderclap association. Denies any fever or chills. Time Seen by Provider: 11/27/17 14:18 Chief Complaint (Nursing): Headache History Per: Patient History/Exam Limitations: no limitations Past Medical History Reviewed: Historical Data, Nursing Documentation, Vital Signs Vital Signs: Last Vital Signs Temp 97.8 F 11/27/17 13:30 Pulse 77 11/27/17 16:43 Resp 18 11/27/17 16:43 BP 122/81 11/27/17 16:43 Pulse Ox 100 11/28/17 13:11 - Medical History PMH: Migraine, Personality Disorder, Schizophrenia Family History: States: No Known Family Hx - Social History Hx Tobacco Use: No Hx Alcohol Use: No Hx Substance Use: No - Immunization History Hx Tetanus Toxoid Vaccination: No Hx Influenza Vaccination: No Hx Pneumococcal Vaccination: No Review Of Systems Eyes: Positive for: Other (photophobia) Gastrointestinal: Positive for: Nausea Neurological: Positive for: Headache. Negative for: Dizziness Physical Exam - Physical Exam Appears: Non-toxic, No Acute Distress Skin: Normal Color, Warm, Dry, No Rash Head: Normacephalic Eye(s): bilateral: PERRL, Other (normal fundoscopic exam, perrla, eomi, no proptosis) Neck: Normal ROM Cardiovascular: Rhythm Regular, No Murmur Respiratory: Normal Breath Sounds, No Accessory Muscle Use Extremity: Normal ROM, No Deformity, No Swelling Neurological/Psych: Oriented x3, Normal Speech (no focal deficit) ED Course And Treatment O2 Sat by Pulse Oximetry: 100 (RA) Pulse Ox Interpretation: Normal Medical Decision Making Medical Decision Making: Impression Migraine Plan: * Zofran x2 * Tylenol * Sumatriptan * Reassess and Disposition * * patient states improvement, no further headache at this time. Disposition Counseled Patient/Family Regarding: Studies Performed, Diagnosis - Disposition Disposition: HOME/ ROUTINE Disposition Time: 16:35 Condition: STABLE Additional Instructions: follow up with your doctor in 2 days call to make an appointment take medications as prescribed return to ER if symptoms worsens or progress Prescriptions: Ondansetron ODT [Zofran ODT] 4 mg PO TID PRN #12 odt PRN Reason: Nausea/Vomiting Instructions: Migraine Headache (DC) Forms: General Discharge Instructions, [facility] (French), Work Excuse - Clinical Impression Clinical Impression: Migraine - Scribe Statement The provider has reviewed the documentation as recorded by the Scribe (Simon Cutler) All medical record entries made by the Scribe were at my direction and personally dictated by me. I have reviewed the chart and agree that the record accurately reflects my personal performance of the history, physical exam, medical decision making, and the department course for this patient. I have also personally directed, reviewed, and agree with the discharge instructions and disposition.
[2017-11-27 16:44] VITALS: BP 122/81; PULSE 77; RESP 18
[2017-11-28 13:11] VITALS: O2SAT 100
== END 2017-11-27 16:44 | disposition home or self-care (01) ==
LOC: C.ER 13:18
DX: G43.909 Migraine, unspecified, not intractable, without status migrainosus (principal)
CPT/HCPCS: 96372; 99285; J3030

== ENCOUNTER 2017-11-30 18:10 | Emergency (ER) | payer MEDICARE ==
[2017-11-30 18:10] VITALS: BMI 29.0
[2017-11-30 18:49] VITALS: BP 121/86; PULSE 95; RESP 16; TEMP 97.7; O2SAT 98
--- NOTE | 2017-11-30 20:27 | C.PDOC ---
History Of Present Illness 27 y/o female with history of chronic migraine presents to ED with c/o migraine exacerbation similar to prior associated with nausea and photophobia. Patient states she is compliant with medication but reports no improvement and denies fever, dizziness, vomiting or any other complaints at this time. Time Seen by Provider: 11/30/17 19:22 Chief Complaint (Nursing): Headache History Per: Patient History/Exam Limitations: no limitations Onset/Duration Of Symptoms: Days Current Symptoms Are (Timing): Still Present Quality: "Pain" Associated Symptoms: Photophobia, Nausea Past Medical History Reviewed: Historical Data, Nursing Documentation, Vital Signs Vital Signs: Last Vital Signs Temp 97.7 F 11/30/17 18:48 Pulse 95 H 11/30/17 18:48 Resp 16 11/30/17 18:48 BP 121/86 11/30/17 18:48 Pulse Ox 98 11/30/17 20:29 - Medical History PMH: Migraine, Personality Disorder, Schizophrenia Surgical History: No Surg Hx Family History: States: No Known Family Hx - Social History Hx Tobacco Use: No Hx Alcohol Use: No Hx Substance Use: No - Immunization History Hx Tetanus Toxoid Vaccination: No Hx Influenza Vaccination: No Hx Pneumococcal Vaccination: No Review Of Systems Constitutional: Negative for: Fever, Chills Eyes: Positive for: Vision Change Gastrointestinal: Positive for: Nausea. Negative for: Vomiting, Abdominal Pain Neurological: Positive for: Headache. Negative for: Weakness, Numbness, Dizziness Physical Exam - Physical Exam Appears: Non-toxic, No Acute Distress Skin: Warm, Dry, No Rash Head: Atraumatic, Normacephalic Eye(s): bilateral: Normal Inspection (No nystagmus) Oral Mucosa: Moist Neck: Normal ROM, Supple Cardiovascular: Rhythm Regular Respiratory: Normal Breath Sounds, No Rales, No Rhonchi, No Wheezing Gastrointestinal/Abdominal: Soft, No Tenderness, No Guarding, No Rebound Neurological/Psych: Oriented x3, Normal Speech, Normal Cognition, Normal Cranial Nerves, Normal Motor, Normal Sensation Gait: Steady ED Course And Treatment O2 Sat by Pulse Oximetry: 98 (RA) Pulse Ox Interpretation: Normal Medical Decision Making Medical Decision Making: Plan: Toradol, Zofran and Imitrex inj administered Progress: On re eval patient is comfortable, pain resolved and in NAD, agrees with discharge, instructed f.u with neurologist in 1-2 days Disposition Counseled Patient/Family Regarding: Diagnosis, Need For Followup, Rx Given - Disposition Referrals: Samara Love MD [Staff Provider] - Disposition: HOME/ ROUTINE Disposition Time: 21:04 Condition: STABLE Additional Instructions: Please follow up with PMD tomorrow for migraine management Continue PO meds as prescribed until seen by PMD tomorrow Return to ER if symptoms worsen Instructions: Migraine Headache (DC) Forms: [employer] (Faroese) - Clinical Impression Clinical Impression: Migraine - 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 - Scribe Statement The provider has reviewed the documentation as recorded by the Peteribe Arlene Blackman All medical record entries made by the Peteribmireya were at my direction and personally dictated by me. I have reviewed the chart and agree that the record accurately reflects my personal performance of the history, physical exam, medical decision making, and the department course for this patient. I have also personally directed, reviewed, and agree with the discharge instructions and disposition.
== END 2017-11-30 21:15 | disposition home or self-care (01) ==
LOC: C.ER 18:10
DX: G43.909 Migraine, unspecified, not intractable, without status migrainosus (principal)
CPT/HCPCS: 96372; 99284; J1885; J3030

== ENCOUNTER 2017-12-01 09:22 | Inpatient (IN) | payer MEDICARE ==
[2017-12-01 09:22] VITALS: BMI 29.0
--- NOTE | 2017-12-01 10:28 | C.PDOC ---
History Of Present Illness 27 y/o female with a history of migraines presents to the ED for a headache. Patient is complaining of a severe headache that has been has been intermittent for the past several weeks associated with photo phobia and nausea. She states the headache feels like a it's pounding. Patient was seen multiple times at this ED including last night when it improved but felt it come back immediately this morning prompting her visit to the ED. Denies any LOC, numbness, weakness, vision changes, CP, or SOB. PMD: Dr. Samara Love Time Seen by Provider: 12/01/17 09:44 Chief Complaint (Nursing): Headache History Per: Patient History/Exam Limitations: no limitations Onset/Duration Of Symptoms: Days Current Symptoms Are (Timing): Still Present Associated Symptoms: Photophobia, Nausea. denies: Blurred Vision Recent travel outside of the [place]: No Past Medical History Reviewed: Historical Data, Nursing Documentation, Vital Signs Vital Signs: Last Vital Signs Temp 98.4 F 12/01/17 17:00 Pulse 106 H 12/01/17 17:00 Resp 20 12/01/17 17:00 BP 131/82 12/01/17 17:00 Pulse Ox 98 12/01/17 18:32 - Medical History PMH: Migraine, Personality Disorder, Schizophrenia Denies: HIV, HTN, Chronic Kidney Disease, Sexually Transmitted Disease Surgical History: No Surg Hx Family History: States: No Known Family Hx - Social History Hx Tobacco Use: No Hx Alcohol Use: No Hx Substance Use: No - Immunization History Hx Tetanus Toxoid Vaccination: No Hx Influenza Vaccination: No Hx Pneumococcal Vaccination: No Review Of Systems Except As Marked, All Systems Reviewed And Found Negative. Constitutional: Negative for: Weakness, Other (LOC) Cardiovascular: Negative for: Chest Pain Respiratory: Negative for: Shortness of Breath Gastrointestinal: Positive for: Nausea Neurological: Positive for: Headache. Negative for: Numbness, Other (vision changes) Physical Exam - Physical Exam Appears: In Acute Distress (mild painful distress) Skin: Normal Color, Warm, Dry, No Rash Head: Atraumatic, Normacephalic Eye(s): bilateral: Normal Inspection, PERRL, EOMI Ear(s): Bilateral: Normal Nose: Normal Oral Mucosa: Moist Throat: Normal Neck: Normal ROM, Supple Chest: Symmetrical, No Tenderness Cardiovascular: Rhythm Regular, No Friction Rub, No Murmur Respiratory: Normal Breath Sounds, No Decreased Breath Sounds, No Rales, No Rhonchi, No Wheezing Gastrointestinal/Abdominal: Normal Exam, Soft, No Tenderness Back: Normal Inspection, No CVA Tenderness, No Vertebral Tenderness Extremity: Normal ROM, No Pedal Edema, No Deformity, No Swelling Extremity: Bilateral: Normal Color And Temperature Pulses: Left Dorsalis Pedis: Normal, Right Dorsalis Pedis: Normal Neurological/Psych: Oriented x3, Normal Speech, Normal Cognition, Normal Cranial Nerves, Normal Motor, Normal Sensation Gait: Steady ED Course And Treatment - Laboratory Results Result Diagrams: 12/01/17 10:46 12/01/17 10:46 O2 Sat by Pulse Oximetry: 98 (RA) Pulse Ox Interpretation: Normal Medical Decision Making Medical Decision Making: Time: 9:31 Impression: Severe migraine headaches Initial Plan: * CMP * Drug Screen * CBC * Urinalysis Old charts reviewed patient is a seen here for symptoms several times. Scribe Attestation: Documented by Steffany Dunn acting as a scribe for Beena Nuñez PA-C. MD Scribe Attestation: All medical record entries made by the Scribe were at my direction and personally dictated by me. I have reviewed the chart and agree that the record accurately reflects my personal performance of the history, physical exam, medical decision making, and the department course for this patient. I have also personally directed, reviewed, and agree with the discharge instructions and disposition. Disposition - Disposition Disposition: HOSPITALIZED Disposition Time: 13:30 Condition: FAIR - Clinical Impression Clinical Impression: Status migrainosus
[2017-12-01 10:50] LABS: BASO # 0.1 K/uL (0.0-0.2); BASO % 0.5 % (0.0-2.0); EOS # 0.1 K/uL (0.0-0.7); EOS % 0.7 % (0.0-4.0); HEMOGLOBIN 13.3 g/dL (11.0-16.0); LYMPH # 2.9 K/uL (1.0-4.3); LYMPH % 19.1 % (20.0-40.0); MEAN CELL VOLUME 82.5 fL (81.0-99.0); MEAN CORPUSCULAR HEMOGLOBIN 27.7 pg (27.0-31.0); MEAN CORPUSCULAR HGB CONC 33.5 g/dL (33.0-37.0); MEAN PLATELET VOLUME 7.9 fL (7.2-11.7); MONO # 0.6 K/uL (0.0-0.8); MONO % 3.8 % (0.0-10.0); NEUT # 11.3 K/uL (1.8-7.0); NEUT % 75.9 % (50.0-75.0); RBC 4.79 Mil/uL (3.80-5.20); RED CELL DISTRIBUTION WIDTH 13.6 % (11.5-14.5); WHITE BLOOD COUNT 14.9 K/uL (4.8-10.8)
[2017-12-01 11:11] LABS: HCG,QUALITATIVE URINE NEGATIVE (NEGATIVE)
[2017-12-01 11:12] LABS: SQUAMOUS EPITHIAL < 1 /hpf (0-5); URINE BILIRUBIN NEGATIVE (NEGATIVE); URINE BLOOD NEGATIVE (NEGATIVE); URINE CLARITY Clear (Clear); URINE COLOR Straw (YELLOW); URINE GLUCOSE (UA) NORMAL (Normal); URINE LEUKOCYTE ESTERASE NEG Leu/uL (Negative); URINE PROTEIN NEGATIVE (NEGATIVE); URINE UROBILINOGEN NORMAL mg/dL (0.2-1.0)
[2017-12-01] MEDS ORDERED: Magnesium Sulfate 1 gm in D5W 1 GM/100 ML BAG IV ONE ×2 (11:25→12:48)
[2017-12-01] MEDS ORDERED: Dexamethasone 4 mg/1 ml IVP STA (11:27)
[2017-12-01] MEDS ORDERED: Valproate 500 MG in Sodium Chloride 0.9% 100 ML IV ONE (11:27)
[2017-12-01 11:28] LABS: BENZODIAZEPINES, UR NEGATIVE (NEGATIVE); OPIATES, UR NEGATIVE (NEGATIVE); PHENCYCLIDINE, UR NEGATIVE (NEGATIVE)
[2017-12-01] MEDS ORDERED: Magnesium Sulfate 1 gm in D5W 1 GM/100 ML BAG IVPB ONE ×2 (11:50→12:58)
[2017-12-01 11:51] LABS: ALB/GLOB RATIO 0.9 (1.0-2.1); ALBUMIN 4.1 g/dL (3.5-5.0); ALT/SGPT 6 U/L (9-52); AST/SGOT 22 U/L (14-36); BLOOD UREA NITROGEN 7 mg/dL (7-17); CALCIUM 9.7 mg/dl (8.6-10.4); GFR AFRICAN-AMERICAN > 60; GFR NON-AFRICAN AMERICAN > 60
[2017-12-01 11:58] LABS: BARBITURATES, UR POSITIVE (NEGATIVE)
[2017-12-01 16:24] VITALS: RESP 20
--- NOTE | 2017-12-01 17:35 | CP.PCM.HP ---
Past Patient History - Infectious Disease Hx of Infectious Diseases: None - Past Social History Smoking Status: Never Smoked - CARDIAC Hx Hypertension: No - PULMONARY Hx Respiratory Disorders: No - NEUROLOGICAL Hx Migraine: Yes - HEENT Hx HEENT Problems: No - RENAL Hx Chronic Kidney Disease: No - ENDOCRINE/METABOLIC Hx Endocrine Disorders: No - HEMATOLOGICAL/ONCOLOGICAL Hx Human Immunodeficiency Virus (HIV): No - INTEGUMENTARY Hx Dermatological Problems: No - MUSCULOSKELETAL/RHEUMATOLOGICAL Hx Musculoskeletal Disorders: No - GASTROINTESTINAL Hx Gastrointestinal Disorders: No - GENITOURINARY/GYNECOLOGICAL Hx Sexually Transmitted Disorders: No - PSYCHIATRIC Hx Schizophrenia: Yes Hx Substance Use: No - SURGICAL HISTORY Hx Surgeries: No - ANESTHESIA Hx Anesthesia: No Meds Allergies/Adverse Reactions: Allergies Allergy/AdvReac Type Severity Reaction Status Date / Time No Known Allergies Allergy Verified 12/01/17 09:35 Results - Vital Signs Recent Vital Signs: Last Vital Signs Temp 98.4 F 12/01/17 17:00 Pulse 106 H 12/01/17 17:00 Resp 20 12/01/17 17:00 BP 131/82 12/01/17 17:00 Pulse Ox 98 12/01/17 17:00 - Labs Result Diagrams: 12/01/17 10:46 12/01/17 10:46 Labs: Laboratory Results - last 24 hr 12/01/17 12/01/17 12/01/17 10:46 10:46 10:57 WBC 14.9 H RBC 4.79 Hgb 13.3 Hct 39.5 MCV 82.5 MCH 27.7 MCHC 33.5 RDW 13.6 Plt Count 345 MPV 7.9 Neut % (Auto) 75.9 H Lymph % (Auto) 19.1 L [place] % (Auto) 3.8 Eos % (Auto) 0.7 Baso % (Auto) 0.5 Neut # (Auto) 11.3 H Lymph # (Auto) 2.9 [place] # (Auto) 0.6 Eos # (Auto) 0.1 Baso # (Auto) 0.1 Sodium 142 Potassium 4.1 Chloride 110 H Carbon Dioxide 18 L Anion Gap 18 BUN 7 Creatinine 0.9 Est GFR ( Amer) > 60 Est GFR (Non-Af Amer) > 60 Random Glucose 103 Calcium 9.7 Total Bilirubin 0.4 AST 22 ALT 6 L D Alkaline Phosphatase 127 H D Total Protein 8.3 Albumin 4.1 Globulin 4.3 H Albumin/Globulin Ratio 0.9 L Urine Color Straw Urine Clarity Clear Urine pH 6.0 Ur Specific [place] 1.005 Urine Protein Negative Urine Glucose (UA) Normal Urine Ketones Negative Urine Blood Negative Urine Nitrate Negative Urine Bilirubin Negative Urine Urobilinogen Normal Ur Leukocyte Esterase Neg Ur Squamous Epith Cells < 1 Urine HCG, Qual Negative Urine Opiates Screen Urine Methadone Screen Ur Barbiturates Screen Ur Phencyclidine Scrn Ur Amphetamines Screen U Benzodiazepines Scrn U Oth Cocaine Metabols U Cannabinoids Screen 12/01/17 10:57 WBC RBC Hgb Hct MCV MCH MCHC RDW Plt Count MPV Neut % (Auto) Lymph % (Auto) [place] % (Auto) Eos % (Auto) Baso % (Auto) Neut # (Auto) Lymph # (Auto) [place] # (Auto) Eos # (Auto) Baso # (Auto) Sodium Potassium Chloride Carbon Dioxide Anion Gap BUN Creatinine Est GFR ( Amer) Est GFR (Non-Af Amer) Random Glucose Calcium Total Bilirubin AST ALT Alkaline Phosphatase Total Protein Albumin Globulin Albumin/Globulin Ratio Urine Color Urine Clarity Urine pH Ur Specific [place] Urine Protein Urine Glucose (UA) Urine Ketones Urine Blood Urine Nitrate Urine Bilirubin Urine Urobilinogen Ur Leukocyte Esterase Ur Squamous Epith Cells Urine HCG, Qual Urine Opiates Screen Negative Urine Methadone Screen Negative Ur Barbiturates Screen Positive H Ur Phencyclidine Scrn Negative Ur Amphetamines Screen Negative U Benzodiazepines Scrn Negative U Oth Cocaine Metabols Negative U Cannabinoids Screen Negative
--- NOTE | 2017-12-01 18:41 | CP.PCM.CON ---
History of Present Illness - History of Present Illness History of Present Illness: Ms. Lopez is a 27-year-old woman with a past medical history of migraine headaches, who has been having recurrent headaches despite treatment in the ED for the last 2 weeks. Her headache improves somewhat with Reglan, Toradol and sometimes opiate medications, but it returns the next day or the following day. She has had this current headache for the last 2 days and it peaked last night in severity with 10/10 pain located behind her eyes, associated with nausea, photophobia and has a pulsating quality. I asked for her to be given Decadron 10 mg IV, Depakote 500 mg IV and magnesium sulfate 2 grams IV. The headache improved to 4/10 in severity, but she said that she felt as though it was coming back when I saw her. Review of Systems - Review of Systems All systems: reviewed and no additional remarkable complaints except Past Patient History - Infectious Disease Hx of Infectious Diseases: None - Past Social History Smoking Status: Never Smoked - CARDIAC Hx Hypertension: No - PULMONARY Hx Respiratory Disorders: No - NEUROLOGICAL Hx Migraine: Yes - HEENT Hx HEENT Problems: No - RENAL Hx Chronic Kidney Disease: No - ENDOCRINE/METABOLIC Hx Endocrine Disorders: No - HEMATOLOGICAL/ONCOLOGICAL Hx Human Immunodeficiency Virus (HIV): No - INTEGUMENTARY Hx Dermatological Problems: No - MUSCULOSKELETAL/RHEUMATOLOGICAL Hx Musculoskeletal Disorders: No - GASTROINTESTINAL Hx Gastrointestinal Disorders: No - GENITOURINARY/GYNECOLOGICAL Hx Sexually Transmitted Disorders: No - PSYCHIATRIC Hx Schizophrenia: Yes Hx Substance Use: No - SURGICAL HISTORY Hx Surgeries: No - ANESTHESIA Hx Anesthesia: No Meds Allergies/Adverse Reactions: Allergies Allergy/AdvReac Type Severity Reaction Status Date / Time No Known Allergies Allergy Verified 12/01/17 09:35 - Medications Medications: Current Medications Acetaminophen/Butalbital/Caffeine (Fioricet) 1 tab PO Q8 PRN PRN Reason: Migraine headache Enoxaparin Sodium (Lovenox) 40 mg SC DAILY BRET Metoclopramide HCl (Reglan) 10 mg PO TID PRN PRN Reason: Nausea/Vomiting Tramadol HCl (Ultram) 50 mg PO QID PRN PRN Reason: Pain, severe (8-10) Last Admin: 12/01/17 18:35 Dose: 50 mg Physical Exam - Neurological Exam Neurological exam: Alert, CN II-XII Intact, Normal Gait, Oriented x3, Reflexes Normal Results - Vital Signs Recent Vital Signs: Last Vital Signs Temp 98.4 F 12/01/17 17:00 Pulse 106 H 12/01/17 17:00 Resp 20 12/01/17 17:00 BP 131/82 12/01/17 17:00 Pulse Ox 98 12/01/17 18:34 - Labs Result Diagrams: 12/01/17 10:46 12/01/17 10:46 Labs: Laboratory Results - last 24 hr 12/01/17 12/01/17 12/01/17 10:46 10:46 10:57 WBC 14.9 H RBC 4.79 Hgb 13.3 Hct 39.5 MCV 82.5 MCH 27.7 MCHC 33.5 RDW 13.6 Plt Count 345 MPV 7.9 Neut % (Auto) 75.9 H Lymph % (Auto) 19.1 L [place] % (Auto) 3.8 Eos % (Auto) 0.7 Baso % (Auto) 0.5 Neut # (Auto) 11.3 H Lymph # (Auto) 2.9 [place] # (Auto) 0.6 Eos # (Auto) 0.1 Baso # (Auto) 0.1 Sodium 142 Potassium 4.1 Chloride 110 H Carbon Dioxide 18 L Anion Gap 18 BUN 7 Creatinine 0.9 Est GFR ( Amer) > 60 Est GFR (Non-Af Amer) > 60 Random Glucose 103 Calcium 9.7 Total Bilirubin 0.4 AST 22 ALT 6 L D Alkaline Phosphatase 127 H D Total Protein 8.3 Albumin 4.1 Globulin 4.3 H Albumin/Globulin Ratio 0.9 L Urine Color Straw Urine Clarity Clear Urine pH 6.0 Ur Specific [place] 1.005 Urine Protein Negative Urine Glucose (UA) Normal Urine Ketones Negative Urine Blood Negative Urine Nitrate Negative Urine Bilirubin Negative Urine Urobilinogen Normal Ur Leukocyte Esterase Neg Ur Squamous Epith Cells < 1 Urine HCG, Qual Negative Urine Opiates Screen Urine Methadone Screen Ur Barbiturates Screen Ur Phencyclidine Scrn Ur Amphetamines Screen U Benzodiazepines Scrn U Oth Cocaine Metabols U Cannabinoids Screen 12/01/17 10:57 WBC RBC Hgb Hct MCV MCH MCHC RDW Plt Count MPV Neut % (Auto) Lymph % (Auto) [place] % (Auto) Eos % (Auto) Baso % (Auto) Neut # (Auto) Lymph # (Auto) [place] # (Auto) Eos # (Auto) Baso # (Auto) Sodium Potassium Chloride Carbon Dioxide Anion Gap BUN Creatinine Est GFR ( Amer) Est GFR (Non-Af Amer) Random Glucose Calcium Total Bilirubin AST ALT Alkaline Phosphatase Total Protein Albumin Globulin Albumin/Globulin Ratio Urine Color Urine Clarity Urine pH Ur Specific [place] Urine Protein Urine Glucose (UA) Urine Ketones Urine Blood Urine Nitrate Urine Bilirubin Urine Urobilinogen Ur Leukocyte Esterase Ur Squamous Epith Cells Urine HCG, Qual Urine Opiates Screen Negative Urine Methadone Screen Negative Ur Barbiturates Screen Positive H Ur Phencyclidine Scrn Negative Ur Amphetamines Screen Negative U Benzodiazepines Scrn Negative U Oth Cocaine Metabols Negative U Cannabinoids Screen Negative Assessment & Plan (1) Migraine headache Assessment and Plan: The patient should be admitted for observation. We will obtain an MRI of the brain with and without contrast. If the headache does not improve with conservative management, we will consider starting Ketamine drip. Thank you. Status: Acute Priority: Medium
[2017-12-01] MEDS: Apap-Butalbital-Caffeine 325-50-40mg Tab PO PRN (20:00)
[2017-12-02] MEDS: Enoxaparin 40 mg Syringe SC SCH (09:18)
[2017-12-02] MEDS ORDERED: Gadodiamide 287 mg/ml 20 ml IV ONE (10:14)
--- NOTE | 2017-12-02 10:26 | MRI ---
PROCEDURE: MRI brain dated 12/02/2017 HISTORY: Status migrating COMPARISON: Comparison made with CT scan of the brain dated TECHNIQUE: Multiplanar, multisequence MR images of the brain were obtained with and without intravenous contrast enhancement. FINDINGS: HEMORRHAGE: No no acute parenchymal, subarachnoid nor extra-axial hemorrhage. No evidence hemosiderin deposition identified on gradient echo weighted sequence. DWI: No evidence of an acute or early subacute infarction. BRAIN PARENCHYMA: No mass,mass effect or edema. No atrophy or chronic microvascular ischemic changes. ENHANCEMENT: No abnormal intracranial enhancement. VENTRICLES: Unremarkable. No hydrocephalus. CRANIUM: Unremarkable. ORBITS: Orbits and contents grossly unremarkable. PARANASAL SINUSES/MASTOIDS: Clear VASCULAR SYSTEM: Visualized major vascular flow voids at skull base. OTHER FINDINGS: None . IMPRESSION: Unremarkable pre and post contrast enhanced MRI of the brain.
--- NOTE | 2017-12-02 11:12 | CP.PCM.PN ---
Subjective - Date & Time of Evaluation Date of Evaluation: 12/02/17 Time of Evaluation: 11:10 - Subjective Subjective: Progress note. Attending: Kaushal Gomez MD. Pt seen and examined at bedside today. No acute distress. No events overnight. No fevers, chills, vomiting, diarrhea. MRI unremarkable. Neuro workup in progress. Objective - Vital Signs/Intake and Output Vital Signs (last 24 hours): Temp Pulse Resp BP Pulse Ox 98.4 F 90 20 127/75 98 12/02/17 08:04 12/02/17 08:04 12/02/17 08:04 12/02/17 08:04 12/02/17 08:04 Intake and Output: 12/02/17 12/02/17 06:59 18:59 Intake Total 400 Balance 400 - Medications Medications: Current Medications Acetaminophen/Butalbital/Caffeine (Fioricet) 1 tab PO Q8 PRN PRN Reason: Migraine headache Last Admin: 12/01/17 20:00 Dose: 1 tab Enoxaparin Sodium (Lovenox) 40 mg SC DAILY BRET Last Admin: 12/02/17 09:18 Dose: 40 mg Metoclopramide HCl (Reglan) 10 mg PO TID PRN PRN Reason: Nausea/Vomiting Tramadol HCl (Ultram) 50 mg PO QID PRN PRN Reason: Pain, severe (8-10) Last Admin: 12/02/17 09:18 Dose: 50 mg - Labs Labs: 12/01/17 10:46 12/01/17 10:46 - Constitutional Appears: Non-toxic, No Acute Distress - Head Exam Head Exam: ATRAUMATIC, NORMAL INSPECTION, NORMOCEPHALIC - Eye Exam Eye Exam: EOMI - ENT Exam ENT Exam: Mucous Membranes Moist - Neck Exam Neck Exam: Full ROM, Normal Inspection - Respiratory Exam Respiratory Exam: Clear to Ausculation Bilateral, NORMAL BREATHING PATTERN - Cardiovascular Exam Cardiovascular Exam: +S1, +S2 - GI/Abdominal Exam GI & Abdominal Exam: Soft, Normal Bowel Sounds. absent: Tenderness - Extremities Exam Extremities Exam: Full ROM, Normal Inspection - Neurological Exam Neurological Exam: Alert, Awake, Oriented x3 - Psychiatric Exam Psychiatric exam: Normal Affect, Normal Mood - Skin Skin Exam: Dry, Intact, Normal Color, Warm Assessment and Plan - Assessment and Plan (Free Text) Assessment: This is a 27 yo female with 1. Intractable headache. -MRI unremarkable -neuro consult. Dr. Lama -continue fioricet prn -continue tramadol for pain -continue reglan for nausea 2. Hx of schizophrenia -psych consult. recs appreciated. 3. GI/DVT ppx -regular diet -lovenox discussed with Dr. Gomez.
[2017-12-02] MEDS: Apap-Butalbital-Caffeine 325-50-40mg Tab PO PRN ×2 (11:57→21:00)
--- NOTE | 2017-12-02 14:09 | PCM.PSYCH ---
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 Patient has a history of Schizophrenia, which was diagnosed two years ago. Patient presented to the hospital with complaint of migraine headaches, which began two months ago but have gotten worse within the past two days. Patient complains of pain located behind her eyes, associated with nausea, photophobia and a pulsating quality. Patient states that she feels as though she has "metal or glass in her brain". Patient believes her migraine headaches may be due to an allergic reaction to an exotic cactus she purchased two months ago. Patient believes that her schizophrenia symptoms are stable, but she still reports hearing voices, feelings of paranoia, and that people are conspiring against her. Patient also reports insomnia and difficulty with concentration for the past two days. Patient reports that she has depression as well, but is not currently having any suicidal ideation. Patient has been hospitalized twice for Schizophrenia, and states that she attempted to commit suicide during one of the hospitalizations last year by eating crayons. Patient is taking Haldol and Cogentin, which is prescribed to her by [facility]. Patient denies alcohol, drug or tobacco use. PMH: Denies Psych: Schizophrenia, Depression Family Psych History: Uncle has unknown mental illness Current Medications: Active Medications Generic Name Dose Route Start Last Admin Trade Name Freq PRN Reason Stop Dose Admin Acetaminophen/Butalbital/Caffeine 1 tab 12/01/17 17:33 12/02/17 11:57 Fioricet PO 1 tab Q8 PRN Administration Migraine headache Enoxaparin Sodium 40 mg 12/02/17 10:00 12/02/17 09:18 Lovenox SC 40 mg DAILY BRET Administration Metoclopramide HCl 10 mg 12/01/17 17:33 Reglan PO TID PRN Nausea/Vomiting Pneumococcal Polyvalent Vaccine 0.5 ml 12/04/17 10:00 Pneumovax 23 Vaccine IM 12/04/17 10:01 .ONCE ONE Tramadol HCl 50 mg 12/01/17 17:34 12/02/17 09:18 Ultram PO 50 mg QID PRN Administration Pain, severe (8-10) Past Psychiatric History - Past Psychiatric History Previous Treatment History: Inpatient Pertinent Medical Hx (Current Medical&Sleep Prob, Allergies): Allergies Allergy/AdvReac Type Severity Reaction Status Date / Time No Known Allergies Allergy Verified 12/01/17 09:35 Acetaminophen/Butalbital/Caf [Fioricet] 1 tab PO Q8 PRN #10 tab 11/20/17 Metoclopramide [Reglan] 1 tab PO TID PRN #25 tab 11/20/17 Ondansetron ODT [Zofran ODT] 4 mg PO Q8 PRN #10 odt 11/20/17 Ondansetron ODT [Zofran ODT] 4 mg PO TID PRN #12 odt 11/27/17 Review of Systems - Review of Systems All systems: reviewed and no additional remarkable complaints except - Psychiatric Psychiatric: Auditory Hallucinations, Depression, Difficulty Concentrating, Irritability, Paranoia Mental Status Examination - Personal Presentation Personal Presentation: Looks stated age - Affect Affect: Constricted, Depressed - Motor Activity Motor Activity: Calm - Reliability in Providing Information Reliability in Providing Information: Poor, due to altered mood - Speech Speech: Organized - Mood Mood: Depressed, Anxious - Formal Thought Process Formal Thought Process: Hallucinations, Delusions - Hallucinations/Delusions Hallucinations: Auditory - Cognitive Functions Orientation: Person, Place, Situation, Time Sensorium: Alert Attention/Concentration: Attentive Abstract Thinking: [place] Estimate of Intelligence: Below average Judgement: Imparied, as evidence by: Poor judgement, Intact, as evidence by: Insight regarding need for hospitalization Memory: Recent intact, as evidence by: Ability to recall events of the day, Remote intact, as evidenced by: Abilit to recall sig. life events - Risk Risk: Diminished functioning - Strength & Assets Inventory Strength & Assets Inventory: Family support, Cooperative DSM 5 DX - DSM 5 DSM 5 Diagnosis: Schizophrenia paranoid type - Recommended/Plan of Treatment Treatment Recommendations and Plan of Treatment: Schizophrenia paranoid type -psychotherapy -supportive therapy, individual therapy -Cogentin 1 mg PO BID -Haldol 5 mg PO BID
--- NOTE | 2017-12-02 14:36 | CP.PCM.PN ---
Subjective - Date & Time of Evaluation Date of Evaluation: 12/02/17 Time of Evaluation: 07:40 - Subjective Subjective: clinically same Objective - Vital Signs/Intake and Output Vital Signs (last 24 hours): Temp Pulse Resp BP Pulse Ox 98.4 F 90 20 127/75 98 12/02/17 08:04 12/02/17 08:04 12/02/17 08:04 12/02/17 08:04 12/02/17 08:04 Intake and Output: 12/02/17 12/02/17 06:59 18:59 Intake Total 400 400 Output Total 2 Balance 400 398 - Medications Medications: Current Medications Acetaminophen/Butalbital/Caffeine (Fioricet) 1 tab PO Q8 PRN PRN Reason: Migraine headache Last Admin: 12/02/17 11:57 Dose: 1 tab Benztropine Mesylate (Cogentin) 1 mg PO BID BRET Enoxaparin Sodium (Lovenox) 40 mg SC DAILY BRET Last Admin: 12/02/17 09:18 Dose: 40 mg Haloperidol (Haldol) 5 mg PO BID BRET Metoclopramide HCl (Reglan) 10 mg PO TID PRN PRN Reason: Nausea/Vomiting Pneumococcal Polyvalent Vaccine (Pneumovax 23 Vaccine) 0.5 ml IM .ONCE ONE Stop: 12/04/17 10:01 Tramadol HCl (Ultram) 50 mg PO QID PRN PRN Reason: Pain, severe (8-10) Last Admin: 12/02/17 09:18 Dose: 50 mg - Labs Labs: 12/01/17 10:46 12/01/17 10:46 - Constitutional Appears: Well - Head Exam Head Exam: ATRAUMATIC, NORMAL INSPECTION, NORMOCEPHALIC - Eye Exam Eye Exam: EOMI, Normal appearance, PERRL Pupil Exam: NORMAL ACCOMODATION, PERRL - ENT Exam ENT Exam: Mucous Membranes Moist, Normal Exam - Neck Exam Neck Exam: Full ROM, Normal Inspection. absent: Lymphadenopathy - Respiratory Exam Respiratory Exam: Decreased Breath Sounds - Cardiovascular Exam Cardiovascular Exam: REGULAR RHYTHM, +S1, +S2 - GI/Abdominal Exam GI & Abdominal Exam: Soft, Diminished Bowel Sounds - Rectal Exam Rectal Exam: Deferred
[2017-12-03] MEDS: Apap-Butalbital-Caffeine 325-50-40mg Tab PO PRN ×3 (05:14→22:36)
--- NOTE | 2017-12-03 07:01 | CP.PCM.PN ---
Subjective - Date & Time of Evaluation Date of Evaluation: 12/03/17 Time of Evaluation: 07:00 - Subjective Subjective: Ms. Lopez was seen and examined at the bedside. She is alert, oriented in all spheres. She denies any headache, dizziness, lightheadedness, nausea, or vomiting. She is able to follow all commands and moves all her extremities spontaneously. There was no untoward events overnight. Objective - Vital Signs/Intake and Output Vital Signs (last 24 hours): Temp Pulse Resp BP Pulse Ox 98.4 F 105 H 20 135/90 98 12/03/17 00:00 12/03/17 00:00 12/03/17 00:00 12/03/17 01:45 12/03/17 04:00 Intake and Output: 12/02/17 12/03/17 18:59 06:59 Intake Total 400 900 Output Total 2 Balance 398 900 - Medications Medications: Current Medications Acetaminophen/Butalbital/Caffeine (Fioricet) 1 tab PO Q8 PRN PRN Reason: Migraine headache Last Admin: 12/03/17 05:14 Dose: 1 tab Benztropine Mesylate (Cogentin) 1 mg PO BID [facility] Last Admin: 12/02/17 18:42 Dose: 1 mg Enoxaparin Sodium (Lovenox) 40 mg SC DAILY [facility] Last Admin: 12/02/17 09:18 Dose: 40 mg Haloperidol (Haldol) 5 mg PO BID [facility] Last Admin: 12/02/17 18:42 Dose: 5 mg Metoclopramide HCl (Reglan) 10 mg PO TID PRN PRN Reason: Nausea/Vomiting Last Admin: 12/02/17 16:54 Dose: 10 mg Pneumococcal Polyvalent Vaccine (Pneumovax 23 Vaccine) 0.5 ml IM .ONCE ONE Stop: 12/04/17 10:01 Tramadol HCl (Ultram) 50 mg PO QID PRN PRN Reason: Pain, severe (8-10) Last Admin: 12/03/17 01:49 Dose: 50 mg - Labs Labs: 12/01/17 10:46 12/01/17 10:46 - Constitutional Appears: No Acute Distress - Head Exam Head Exam: NORMAL INSPECTION - Neurological Exam Neurological Exam: Alert, Awake Neuro motor strength exam: Left Upper Extremity: 5, Right Upper Extremity: 5, Left Lower Extremity: 5, Right Lower Extremity: 5 Additional comments: Alert, oriented, follow simple commands. Sensation is intact. Assessment and Plan (1) Migraine headache Assessment & Plan: Case discussed with Dr. Lama, continue all current all current medical regimen. There is no new recommendations from neurology, but advised patient to follow up both her psychiatrist and neuroloy. If patient would like to follow up with Dr. Lama at [address] [facility] [address]. [facility], [address]. tel. # [phone]. Status: Acute
[2017-12-03 07:20] LABS: BASO # 0.1 K/uL (0.0-0.2); BASO % 0.5 % (0.0-2.0); EOS # 0.1 K/uL (0.0-0.7); EOS % 0.8 % (0.0-4.0); LYMPH # 4.7 K/uL (1.0-4.3); LYMPH % 26.8 % (20.0-40.0); MEAN CELL VOLUME 83.3 fL (81.0-99.0); MEAN CORPUSCULAR HEMOGLOBIN 28.1 pg (27.0-31.0); MEAN CORPUSCULAR HGB CONC 33.7 g/dL (33.0-37.0); MEAN PLATELET VOLUME 8.3 fL (7.2-11.7); MONO % 5.4 % (0.0-10.0); NEUT # 11.8 K/uL (1.8-7.0); NEUT % 66.5 % (50.0-75.0); NRBC % 0.1 % (0.0-2.0); RBC 4.62 Mil/uL (3.80-5.20); RED CELL DISTRIBUTION WIDTH 13.9 % (11.5-14.5); WHITE BLOOD COUNT 17.7 K/uL (4.8-10.8)
[2017-12-03 07:47] LABS: ALB/GLOB RATIO 1.1 (1.0-2.1); ALBUMIN 3.8 g/dL (3.5-5.0); ALT/SGPT 8 U/L (9-52); AST/SGOT 28 U/L (14-36); BLOOD UREA NITROGEN 11 mg/dL (7-17); CALCIUM 9.5 mg/dl (8.6-10.4); GFR AFRICAN-AMERICAN > 60; GFR NON-AFRICAN AMERICAN > 60
[2017-12-03] MEDS: Enoxaparin 40 mg Syringe SC SCH (09:26)
--- NOTE | 2017-12-03 13:51 | CP.PCM.PN ---
Subjective - Date & Time of Evaluation Date of Evaluation: 12/03/17 Time of Evaluation: 07:20 - Subjective Subjective: clinically same Objective - Vital Signs/Intake and Output Vital Signs (last 24 hours): Temp Pulse Resp BP Pulse Ox 98 F 110 H 20 136/88 98 12/03/17 08:00 12/03/17 08:00 12/03/17 08:00 12/03/17 08:00 12/03/17 08:00 Intake and Output: 12/03/17 12/03/17 06:59 18:59 Intake Total 900 Balance 900 - Medications Medications: Current Medications Acetaminophen/Butalbital/Caffeine (Fioricet) 1 tab PO Q8 PRN PRN Reason: Migraine headache Last Admin: 12/03/17 05:14 Dose: 1 tab Benztropine Mesylate (Cogentin) 1 mg PO BID [facility] Last Admin: 12/03/17 09:26 Dose: 1 mg Enoxaparin Sodium (Lovenox) 40 mg SC DAILY [facility] Last Admin: 12/03/17 09:26 Dose: 40 mg Haloperidol (Haldol) 5 mg PO BID [facility] Last Admin: 12/03/17 09:25 Dose: 5 mg Metoclopramide HCl (Reglan) 10 mg PO TID PRN PRN Reason: Nausea/Vomiting Last Admin: 12/02/17 16:54 Dose: 10 mg Pneumococcal Polyvalent Vaccine (Pneumovax 23 Vaccine) 0.5 ml IM .ONCE ONE Stop: 12/04/17 10:01 Tramadol HCl (Ultram) 50 mg PO QID PRN PRN Reason: Pain, severe (8-10) Last Admin: 12/03/17 11:14 Dose: 50 mg - Labs Labs: 12/03/17 07:08 12/03/17 07:08 - Constitutional Appears: Well - Head Exam Head Exam: ATRAUMATIC, NORMAL INSPECTION, NORMOCEPHALIC - Eye Exam Eye Exam: EOMI, Normal appearance, PERRL Pupil Exam: NORMAL ACCOMODATION, PERRL - ENT Exam ENT Exam: Mucous Membranes Moist, Normal Exam - Neck Exam Neck Exam: Full ROM, Normal Inspection. absent: Lymphadenopathy - Respiratory Exam Respiratory Exam: Decreased Breath Sounds - Cardiovascular Exam Cardiovascular Exam: REGULAR RHYTHM, +S1, +S2 - GI/Abdominal Exam GI & Abdominal Exam: Soft, Diminished Bowel Sounds - Rectal Exam Rectal Exam: Deferred
[2017-12-03 16:44] VITALS: O2SAT 99
[2017-12-04] MEDS: Apap-Butalbital-Caffeine 325-50-40mg Tab PO PRN ×2 (06:59→15:31)
[2017-12-04 08:18] LABS: BASO # 0.1 K/uL (0.0-0.2); BASO % 0.4 % (0.0-2.0); EOS # 0.2 K/uL (0.0-0.7); EOS % 1.1 % (0.0-4.0); HEMOGLOBIN 13.2 g/dL (11.0-16.0); LYMPH # 4.2 K/uL (1.0-4.3); LYMPH % 26.1 % (20.0-40.0); MEAN CELL VOLUME 82.3 fL (81.0-99.0); MEAN CORPUSCULAR HEMOGLOBIN 28.3 pg (27.0-31.0); MEAN CORPUSCULAR HGB CONC 34.4 g/dL (33.0-37.0); MEAN PLATELET VOLUME 8.2 fL (7.2-11.7); MONO # 0.8 K/uL (0.0-0.8); MONO % 4.9 % (0.0-10.0); NEUT # 10.9 K/uL (1.8-7.0); NEUT % 67.5 % (50.0-75.0); RBC 4.68 Mil/uL (3.80-5.20); RED CELL DISTRIBUTION WIDTH 13.6 % (11.5-14.5); WHITE BLOOD COUNT 16.1 K/uL (4.8-10.8)
[2017-12-04 08:36] LABS: ALBUMIN 3.9 g/dL (3.5-5.0); ALT/SGPT 16 U/L (9-52); AST/SGOT 17 U/L (14-36); BLOOD UREA NITROGEN 13 mg/dL (7-17); CALCIUM 10.2 mg/dl (8.6-10.4); GFR AFRICAN-AMERICAN > 60; GFR NON-AFRICAN AMERICAN > 60
[2017-12-04] MEDS: Enoxaparin 40 mg Syringe SC SCH (09:44)
[2017-12-04] MEDS ORDERED: Pneumococcal 23-Valent Vaccine IM ONE (10:00)
[2017-12-04 16:11] VITALS: BP 127/87; PULSE 120; TEMP 98.5
--- NOTE | 2017-12-04 17:34 | CP.PCM.PN ---
Subjective - Date & Time of Evaluation Date of Evaluation: 12/04/17 Time of Evaluation: 17:34 Objective - Vital Signs/Intake and Output Vital Signs (last 24 hours): Temp Pulse Resp BP Pulse Ox 98.5 F 120 H 20 127/87 99 12/04/17 16:00 12/04/17 16:00 12/04/17 16:00 12/04/17 16:00 12/04/17 16:00 Intake and Output: 12/04/17 12/04/17 06:59 18:59 Intake Total 1000 480 Balance 1000 480 - Medications Medications: Current Medications Acetaminophen/Butalbital/Caffeine (Fioricet) 1 tab PO Q8 PRN PRN Reason: Migraine headache Last Admin: 12/04/17 15:31 Dose: 1 tab Benztropine Mesylate (Cogentin) 1 mg PO BID [facility] Last Admin: 12/04/17 09:43 Dose: 1 mg Enoxaparin Sodium (Lovenox) 40 mg SC DAILY [facility] Last Admin: 12/04/17 09:44 Dose: Not Given Haloperidol (Haldol) 5 mg PO BID [facility] Last Admin: 12/04/17 09:43 Dose: 5 mg Metoclopramide HCl (Reglan) 10 mg PO TID PRN PRN Reason: Nausea/Vomiting Last Admin: 12/02/17 16:54 Dose: 10 mg Tramadol HCl (Ultram) 50 mg PO QID PRN PRN Reason: Pain, severe (8-10) Last Admin: 12/04/17 09:43 Dose: 50 mg - Labs Labs: 12/04/17 08:03 12/04/17 08:03 Assessment and Plan - Assessment and Plan (Free Text) Assessment: FOLLOW UP WITH DR Helen JORDAN 1-2 WEEK AT HIS OFFICE --CALL FOR APPOINTMENT FOLLOW UP WITH DR CROFT OR YOUR NEUROLOGIST OUT PATIENT NEXT WEEK ---CALL FOR APPOINTMENT FOLLOW UP WITH DR MOLINA OR YOUR PSYCHIATRIST OUT PATIENT NEXT WEEK ---CALL FOR APPOINTMENT CONTINUE ALL YOUR HOME MEDICATION NEW PRESCRIPTION GIVEN HALDOL CONGENTIN ACTIVITY TOLERATED CALL DR Helen JORDAN OR GO TO THE EMERGENCY ROOM IF SYMPTOMS RETURN OR WORSENING
--- NOTE | 2017-12-04 20:21 | CP.PCM.PN ---
Subjective - Date & Time of Evaluation Date of Evaluation: 12/04/17 Time of Evaluation: 07:20 - Subjective Subjective: clinically same Objective - Vital Signs/Intake and Output Vital Signs (last 24 hours): Temp Pulse Resp BP Pulse Ox 98.5 F 120 H 20 127/87 99 12/04/17 16:00 12/04/17 16:00 12/04/17 16:00 12/04/17 16:00 12/04/17 16:00 Intake and Output: 12/04/17 12/05/17 18:59 06:59 Intake Total 480 500 Balance 480 500 - Labs Labs: 12/04/17 08:03 12/04/17 08:03 - Constitutional Appears: Well - Head Exam Head Exam: ATRAUMATIC, NORMAL INSPECTION, NORMOCEPHALIC - Eye Exam Eye Exam: EOMI, Normal appearance, PERRL Pupil Exam: NORMAL ACCOMODATION, PERRL - ENT Exam ENT Exam: Mucous Membranes Moist, Normal Exam - Neck Exam Neck Exam: Full ROM, Normal Inspection. absent: Lymphadenopathy - Respiratory Exam Respiratory Exam: Decreased Breath Sounds - Cardiovascular Exam Cardiovascular Exam: REGULAR RHYTHM, +S1, +S2 - GI/Abdominal Exam GI & Abdominal Exam: Soft, Diminished Bowel Sounds - Rectal Exam Rectal Exam: Deferred
== END 2017-12-04 19:30 | disposition home or self-care (01) | DRG 103 ==
LOC: C.ER 09:22 → C.9E 13:54 → C.3T 16:10 → OBSVTOIN 12-03 11:39
PROVIDERS: ADMIT Internal Medicine Nephrology; ATTEND Internal Medicine Nephrology
DX: G43.901 Migraine, unspecified, not intractable, with status migrainosus (principal); F20.0 Paranoid schizophrenia; Z79.899 Other long term (current) drug therapy

== ENCOUNTER 2017-12-08 17:30 | Emergency (ER) | payer MEDICARE ==
[2017-12-08 17:30] VITALS: BMI 29.0
[2017-12-08 17:37] VITALS: BP 129/96; PULSE 117; RESP 20; TEMP 98; O2SAT 99
[2017-12-08] MEDS ORDERED: Alum-Mag Hydrox-Simethicone Susp (30 mL) PO STA (18:13)
--- NOTE | 2017-12-08 18:15 | C.PDOC ---
History Of Present Illness 27 y/o female, w/PMHx of schizophrenia and bizarre behavior, presents to the ER complaining of vague facial tingling. Patient states that she was admitted in [facility] from 12/01/17 - 12/04/[address] Kaushal Gomez. Patient believes that she may have been poisoned. She suggests that that she has botulism but she has no evidence to substantiate this claim. Time Seen by Provider: 12/08/17 18:05 Chief Complaint (Nursing): Abdominal Pain History Per: Patient History/Exam Limitations: no limitations Onset/Duration Of Symptoms: Days Current Symptoms Are (Timing): Still Present Severity: Moderate Past Medical History Reviewed: Historical Data, Nursing Documentation, Vital Signs Vital Signs: Last Vital Signs Temp 98.0 F 12/08/17 17:34 Pulse 117 H 12/08/17 17:34 Resp 20 12/08/17 17:34 BP 129/96 H 12/08/17 17:34 Pulse Ox 99 12/08/17 18:36 - Medical History PMH: Migraine, Personality Disorder, Schizophrenia Denies: HIV, HTN, Chronic Kidney Disease, Sexually Transmitted Disease Surgical History: No Surg Hx Family History: States: No Known Family Hx - Social History Hx Tobacco Use: No Hx Alcohol Use: No Hx Substance Use: No - Immunization History Hx Tetanus Toxoid Vaccination: No Hx Influenza Vaccination: No Hx Pneumococcal Vaccination: No Review Of Systems Except As Marked, All Systems Reviewed And Found Negative. Neurological: Positive for: Other (facial tingling) Physical Exam - Physical Exam Appears: Non-toxic, No Acute Distress, Other (obese, black female, bizarre, but normal affect) Skin: Normal Color, Warm, Dry, No Rash (face) Head: Atraumatic, Normacephalic, Other ((-) facial droop, (-) headache) Eye(s): bilateral: Normal Inspection Nose: Normal Oral Mucosa: Moist Neck: Supple Chest: Symmetrical Cardiovascular: Rhythm Regular Respiratory: Normal Breath Sounds, No Rales, No Rhonchi, No Wheezing Gastrointestinal/Abdominal: Normal Exam, Soft, No Tenderness Neurological/Psych: Oriented x3, Normal Speech ED Course And Treatment O2 Sat by Pulse Oximetry: 99 (RA) Pulse Ox Interpretation: Normal Medical Decision Making Medical Decision Making: schizophrenia, delusional, bizarre, but normal affect normal exam NO s/s of muscle weakness nor lid lag, nor resp compromise, no canned/bottled foods in past 3 days. Inpatient for headache (none today) from 12/01-12/04 with normal labs and preg neg 12/01. no need for repeat testing at this time. Reassured maalox and healthy diet reviewed. Disposition Doctor Will See Patient In The: Office Counseled Patient/Family Regarding: Studies Performed, Diagnosis - Disposition Referrals: Samara Love MD [Staff Provider] - Wilfred Gomez MD [Staff Provider] - Disposition: HOME/ ROUTINE Disposition Time: 18:15 Condition: GOOD Additional Instructions: There are NO signs of Botulism now. Return if you have any new or significant symptoms Maalox 30 cc's (one tablespoon) every 6 hours as needed for mild abdominal discomforts Follow-up with Dr. Carreon as needed. Instructions: Schizophrenia (DC) Forms: [employer] (Divehi) - Clinical Impression Clinical Impression: Schizophrenia, Facial tingling sensation - Scribe Statement The provider has reviewed the documentation as recorded by the Scribe Dina Ray Provider Attestation: All medical record entries made by the Scribe were at my direction and personally dictated by me. I have reviewed the chart and agree that the record accurately reflects my personal performance of the history, physical exam, medical decision making, and the department course for this patient. I have also personally directed, reviewed, and agree with the discharge instructions and disposition.
[2017-12-08] MEDS ORDERED: Alum-Mag Hydrox-Simethicone Susp (30 mL) ONE (18:20)
== END 2017-12-08 18:38 | disposition home or self-care (01) ==
LOC: C.ER 17:30
DX: R20.2 Paresthesia of skin (principal); F20.9 Schizophrenia, unspecified

== ENCOUNTER 2017-12-23 06:43 | Emergency (ER) | payer MEDICARE ==
[2017-12-23 06:43] VITALS: BMI 29.0
[2017-12-23] MEDS ORDERED: Sodium Chloride 0.9% 1,000 ML IV ONE (07:33)
[2017-12-23] MEDS ORDERED: DiphenhydrAMINE 50 mg/ml Inj IVP STA (07:42)
[2017-12-23] MEDS ORDERED: Sodium Chloride 0.9% 1,000 ML ONE (08:02)
[2017-12-23 08:10] LABS: HCG,QUALITATIVE URINE NEGATIVE (NEGATIVE)
[2017-12-23 08:16] LABS: SQUAMOUS EPITHIAL 6 /hpf (0-5); URINE BILIRUBIN NEGATIVE (NEGATIVE); URINE BLOOD NEGATIVE (NEGATIVE); URINE CLARITY Clear (Clear); URINE COLOR Yellow (YELLOW); URINE GLUCOSE (UA) NORMAL (Normal); URINE LEUKOCYTE ESTERASE NEG Leu/uL (Negative); URINE PROTEIN NEGATIVE (NEGATIVE); URINE UROBILINOGEN NORMAL mg/dL (0.2-1.0)
--- NOTE | 2017-12-23 08:30 | C.PDOC ---
History Of Present Illness 27 y/o female with history of Migraine presents to ED with c/o gradual onset frontal headache since last night associated with nausea and photophobia. Patient states she ran out of Fioricet and reports symptoms are similar to previous migraine headache. Patient denies vomiting, numbness, weakness or any other complaints at this time. Time Seen by Provider: 12/23/17 07:12 Chief Complaint (Nursing): Headache History Per: Patient History/Exam Limitations: no limitations Onset/Duration Of Symptoms: Days, Gradual, Sudden Onset Current Symptoms Are (Timing): Still Present Past Medical History Reviewed: Historical Data, Nursing Documentation, Vital Signs Vital Signs: Last Vital Signs Temp 97.7 F 12/23/17 06:48 Pulse 103 H 12/23/17 06:48 Resp 16 12/23/17 06:48 BP Pulse Ox 98 12/23/17 09:05 - Medical History PMH: Migraine, Personality Disorder, Schizophrenia Surgical History: No Surg Hx Family History: States: No Known Family Hx - Social History Hx Tobacco Use: No Hx Alcohol Use: No Hx Substance Use: No - Immunization History Hx Tetanus Toxoid Vaccination: No Hx Influenza Vaccination: No Hx Pneumococcal Vaccination: No Review Of Systems Except As Marked, All Systems Reviewed And Found Negative. Eyes: Positive for: Other (Photophobia) Gastrointestinal: Positive for: Nausea Neurological: Positive for: Headache Physical Exam - Physical Exam Appears: Non-toxic, No Acute Distress Skin: Warm, Dry, No Rash Head: Atraumatic, Normacephalic Eye(s): bilateral: PERRL, EOMI Oral Mucosa: Moist Neck: Normal ROM, Supple Cardiovascular: Rhythm Regular Respiratory: Normal Breath Sounds, No Rales, No Rhonchi, No Wheezing Gastrointestinal/Abdominal: Soft, No Tenderness, No Guarding, No Rebound Neurological/Psych: Oriented x3, Normal Speech, Normal Cognition, Normal Motor, Normal Sensation ED Course And Treatment O2 Sat by Pulse Oximetry: 98 (RA) Pulse Ox Interpretation: Normal Medical Decision Making Medical Decision Making: Assessment: Headache Plan: * Benadryl * Zofran * Reglan * Toradol * IV Fluids Progress: On re evaluation patient is feeling better, states headache has resolved. Patient discharged with advised follow up with Dr. Lama in 2 days. Disposition Counseled Patient/Family Regarding: Studies Performed, Diagnosis, Need For Followup, Rx Given - Disposition Referrals: Augie Lama MD [Staff Provider] - Disposition: HOME/ ROUTINE Disposition Time: 09:02 Condition: STABLE Additional Instructions: follow up with neurologist in 2 days call to make an appointment take medications as prescribed return to ER if symptoms worsens or progress Prescriptions: Acetaminophen/Butalbital/Caf [Fioricet] 1 tab PO TID PRN #15 tab PRN Reason: Pain, Moderate (4-7) Instructions: Headache, Adult Forms: General Discharge Instructions, [facility] (Bulgarian), Work Excuse - Clinical Impression Clinical Impression: Migraine - Scribe Statement The provider has reviewed the documentation as recorded by the Scribmierya Blackman All medical record entries made by the Peteribmireya were at my direction and personally dictated by me. I have reviewed the chart and agree that the record accurately reflects my personal performance of the history, physical exam, medical decision making, and the department course for this patient. I have also personally directed, reviewed, and agree with the discharge instructions and disposition.
[2017-12-23 09:27] VITALS: BP 123/80; PULSE 92; RESP 18; TEMP 98.6; O2SAT 95
== END 2017-12-23 09:42 | disposition home or self-care (01) ==
LOC: C.ER 06:43
DX: G43.909 Migraine, unspecified, not intractable, without status migrainosus (principal); F20.9 Schizophrenia, unspecified
CPT/HCPCS: 81001; 84703; 96374; 99285; J1885; J2765; J7030

== ENCOUNTER 2018-01-09 15:51 | Emergency (ER) | payer MEDICARE ==
[2018-01-09 15:52] VITALS: BMI 29.0
[2018-01-09 15:57] VITALS: BP 108/73; PULSE 112; RESP 20; TEMP 98; O2SAT 100
[2018-01-09] MEDS ORDERED: Apap-Butalbital-Caffeine 325-50-40mg Tab PO STA (16:16)
--- NOTE | 2018-01-09 16:19 | C.PDOC ---
History Of Present Illness 27 year old female presents to the emergency department with complaints of a recurring migraine headache today. Patient reports that she ran out of Fioricet which was prescribed by her PMD. Patient reports that she is currently experiencing headache symptoms and has had multiple prior ED visits for the same symptoms. CO RECUR MIGRAINE GOODWIN TODAY. PS RAN OUT OF FIORCET PRESCRIBED BY PMD. CURRENT GOODWIN SIM TO PRIOR. MULT PRIOR ER VISITS FOR SAME EXAM MILD DIST NONTOXIC HEENT NO PHOTOPHOBIA NECK SUPPLE NEURO INTACT REMAINDER NEG Time Seen by Provider: 01/09/18 15:59 Chief Complaint (Nursing): Headache History Per: Patient History/Exam Limitations: no limitations Onset/Duration Of Symptoms: Hrs Current Symptoms Are (Timing): Still Present Quality: Aching, "Pain" Preceeding Symptoms: Known Migraine Symptoms Past Medical History Reviewed: Historical Data, Nursing Documentation, Vital Signs Vital Signs: Last Vital Signs Temp 98.0 F 01/09/18 15:55 Pulse 112 H 01/09/18 15:55 Resp 20 01/09/18 15:55 BP 108/73 01/09/18 15:55 Pulse Ox 100 01/09/18 16:19 - Medical History PMH: Migraine, Personality Disorder, Schizophrenia Denies: HIV, HTN, Chronic Kidney Disease, Sexually Transmitted Disease Surgical History: No Surg Hx Family History: States: No Known Family Hx - Social History Hx Tobacco Use: No Hx Alcohol Use: No Hx Substance Use: No - Immunization History Hx Tetanus Toxoid Vaccination: No Hx Influenza Vaccination: No Hx Pneumococcal Vaccination: No Review Of Systems Except As Marked, All Systems Reviewed And Found Negative. Neurological: Positive for: Headache. Negative for: Weakness, Numbness Physical Exam - Physical Exam Appears: Non-toxic, No Acute Distress Skin: Warm, Dry Head: Atraumatic, Normacephalic Eye(s): bilateral: Normal Inspection, Other (no photophobia) Nose: Normal Oral Mucosa: Moist Neck: Normal, Supple Chest: Symmetrical Cardiovascular: Rhythm Regular Respiratory: Normal Breath Sounds Extremity: Normal ROM Neurological/Psych: Oriented x3, Normal Speech, Normal Cognition, Normal Motor, Normal Sensation, Normal Reflexes, No Other (focal deficits) ED Course And Treatment O2 Sat by Pulse Oximetry: 100 (RA) Pulse Ox Interpretation: Normal Progress Note: Plan: Fioricet 1 tab PO. Zofran 4mg PO Progress - Data Reviewed Data Reviewed: Old records Disposition Counseled Patient/Family Regarding: Diagnosis, Need For Followup, Rx Given - Disposition Referrals: YOUR,PMD [Other] Disposition: HOME/ ROUTINE Disposition Time: 16:18 Condition: IMPROVED Prescriptions: Acetaminophen/Butalbital/Caf [Fioricet] 1 tab PO TID PRN #20 tab PRN Reason: Headache Instructions: Migraine Headache (DC) Forms: [employer] (German), Work Excuse - Clinical Impression Clinical Impression: Migraine, Medication refill - Scribe Statement The provider has reviewed the documentation as recorded by the Scribe (Jairo Mars) Provider Attestation: All medical record entries made by the Scribe were at my direction and personally dictated by me. I have reviewed the chart and agree that the record accurately reflects my personal performance of the history, physical exam, medical decision making, and the department course for this patient. I have also personally directed, reviewed, and agree with the discharge instructions and disposition.
[2018-01-09] MEDS ORDERED: Apap-Butalbital-Caffeine 325-50-40mg Tab ONE (16:30)
== END 2018-01-09 16:25 | disposition home or self-care (01) ==
LOC: C.ER 15:51
DX: G43.909 Migraine, unspecified, not intractable, without status migrainosus (principal); Z76.0 Encounter for issue of repeat prescription; F20.9 Schizophrenia, unspecified

== ENCOUNTER 2018-01-30 20:16 | Emergency (ER) | payer MEDICARE ==
[2018-01-30 20:16] VITALS: BMI 29.0
[2018-01-30 20:39] VITALS: BP 110/79; PULSE 96; RESP 15; TEMP 98.9; O2SAT 100
--- NOTE | 2018-01-30 21:21 | C.PDOC ---
History Of Present Illness 27 year old female presents to the emergency department with complaints of generalized body aches since last night. She reports that her legs have been throbbing, even when she lays down. She denies nausea, vomiting, diarrhea, fall , injury, swelling, or urinary symptoms. Time Seen by Provider: 01/30/18 20:39 Chief Complaint (Nursing): Medical Clearance History Per: Patient History/Exam Limitations: no limitations Onset/Duration Of Symptoms: Days (1) Current Symptoms Are (Timing): Still Present Recent travel outside of the [place]: No Past Medical History Reviewed: Historical Data, Nursing Documentation, Vital Signs Vital Signs: Last Vital Signs Temp 98.9 F 01/30/18 20:35 Pulse 96 H 01/30/18 20:35 Resp 15 01/30/18 20:35 BP 110/79 01/30/18 20:35 Pulse Ox 100 01/30/18 21:49 - Medical History PMH: Migraine, Personality Disorder, Schizophrenia Denies: HIV, HTN, Chronic Kidney Disease, Sexually Transmitted Disease Surgical History: No Surg Hx Family History: States: No Known Family Hx - Social History Hx Tobacco Use: No Hx Alcohol Use: No Hx Substance Use: No - Immunization History Hx Tetanus Toxoid Vaccination: No Hx Influenza Vaccination: No Hx Pneumococcal Vaccination: No Review Of Systems Constitutional: Positive for: Malaise, Other (diffuse myalgias) Gastrointestinal: Negative for: Nausea, Vomiting, Diarrhea Genitourinary: Negative for: Dysuria, Frequency, Incontinence Musculoskeletal: Positive for: Leg Pain (throbbing) Physical Exam - Physical Exam Appears: Non-toxic, No Acute Distress Skin: Warm, Dry, No Pale, No Rash Head: Atraumatic, Normacephalic Eye(s): bilateral: Normal Inspection Ear(s): Bilateral: Normal Nose: Normal Oral Mucosa: Moist Throat: Normal, No Erythema, No Exudate Neck: Normal, Supple Chest: Symmetrical Cardiovascular: Rhythm Regular, No Murmur Respiratory: Normal Breath Sounds, No Rales, No Rhonchi, No Wheezing Gastrointestinal/Abdominal: Normal Exam, Soft, No Tenderness, No Guarding, No Rebound Extremity: Normal ROM, No Tenderness, No Pedal Edema, No Calf Tenderness, No Swelling Pulses: Left Radial: Normal, Right Radial: Normal, Left Dorsalis Pedis: Normal, Right Dorsalis Pedis: Normal Neurological/Psych: Oriented x3, Normal Speech, Normal Cognition, Normal Motor, Normal Sensation Gait: Steady ED Course And Treatment O2 Sat by Pulse Oximetry: 100 (RA) Pulse Ox Interpretation: Normal Progress Note: Plan: Motrin 600mg PO Medical Decision Making Medical Decision Making: Patient is asking for a sandwich, possibly homeless. Disposition - Disposition Referrals: Samara Love MD [Staff Provider] - Disposition: HOME/ ROUTINE Disposition Time: 21:19 Condition: GOOD Additional Instructions: Follow up with the medical doctor within 1-2 days, Return if worsened. Prescriptions: Ibuprofen [Motrin] 600 mg PO TID #21 tab Instructions: Muscle and Bone Pain (DC) Forms: [employer] (Nepali) - Clinical Impression Clinical Impression: Bone pain - PA / RECYCLING PROGRAM MANAGER / Resident Statement MD/DO has reviewed & agrees with the documentation as recorded. - Scribe Statement The provider has reviewed the documentation as recorded by the Scribe (Jairo Mars) All medical record entries made by the Scribe were at my direction and personally dictated by me. I have reviewed the chart and agree that the record accurately reflects my personal performance of the history, physical exam, medical decision making, and the department course for this patient. I have also personally directed, reviewed, and agree with the discharge instructions and disposition.
== END 2018-01-30 21:27 | disposition home or self-care (01) ==
LOC: C.ER 20:16
DX: M89.8X9 Other specified disorders of bone, unspecified site (principal)

== ENCOUNTER 2018-02-01 02:21 | Emergency (ER) | payer MEDICARE ==
[2018-02-01 02:21] VITALS: BMI 29.0
[2018-02-01] MEDS ORDERED: Apap-Butalbital-Caffeine 325-50-40mg Tab PO STA (03:08)
[2018-02-01] MEDS ORDERED: Apap-Butalbital-Caffeine 325-50-40mg Tab ONE (03:14)
--- NOTE | 2018-02-01 03:49 | C.PDOC ---
History Of Present Illness 27 y/o female with Hx of chronic migraine presents to ED requesting medication. Patient states she ran out of medication. Patient is a frequent visitor to ER for similar complaints. Denies dizziness, weakness, photophobia, or vomiting. Time Seen by Provider: 02/01/18 02:55 Chief Complaint (Nursing): Headache History Per: Patient History/Exam Limitations: no limitations Onset/Duration Of Symptoms: Hrs Current Symptoms Are (Timing): Still Present Preceeding Symptoms: None Associated Symptoms: denies: Photophobia, Blurred Vision, Nausea, Vomiting, Extremity Weakness Recent travel outside of the [place]: No Past Medical History Reviewed: Historical Data, Nursing Documentation, Vital Signs Vital Signs: Last Vital Signs Temp 98.3 F 02/01/18 04:54 Pulse 81 02/01/18 04:54 Resp 18 02/01/18 04:54 BP 121/81 02/01/18 04:54 Pulse Ox 99 02/01/18 04:54 - Medical History PMH: Migraine, Personality Disorder, Schizophrenia Surgical History: No Surg Hx Family History: States: No Known Family Hx - Social History Hx Tobacco Use: No Hx Alcohol Use: No Hx Substance Use: No - Immunization History Hx Tetanus Toxoid Vaccination: No Hx Influenza Vaccination: No Hx Pneumococcal Vaccination: No Review Of Systems Constitutional: Positive for: Other (Migraines). Negative for: Fever, Chills Gastrointestinal: Negative for: Nausea, Vomiting, Abdominal Pain, Diarrhea Skin: Negative for: Rash Neurological: Negative for: Weakness, Numbness, Dizziness Physical Exam - Physical Exam Appears: Well, Non-toxic, No Acute Distress Skin: Normal Color, Warm, Dry Head: Atraumatic, Normacephalic Eye(s): bilateral: Normal Inspection, PERRL, EOMI Oral Mucosa: Moist Neck: Supple Chest: Symmetrical, No Tenderness Cardiovascular: Rhythm Regular Respiratory: Normal Breath Sounds, No Decreased Breath Sounds, No Rales, No Rhonchi, No Wheezing Gastrointestinal/Abdominal: Soft, No Tenderness Extremity: Normal ROM, No Deformity Extremity: Bilateral: Atraumatic, Normal Color And Temperature, Normal ROM Neurological/Psych: Oriented x3, Normal Speech, Other (No focal deficits ) Gait: Steady ED Course And Treatment O2 Sat by Pulse Oximetry: 97 (RA) Pulse Ox Interpretation: Normal Progress Note: Administered Fioricet. Upon re-evaluation Patient is feeling better, is medically stable, and requires no further treatment in the ED at this time. Counseling was provided to patient and all questions were answered regarding diagnosis and need for follow up. There is agreement to discharge plan. Return if symptoms persist or worsen. Disposition Counseled Patient/Family Regarding: Diagnosis, Need For Followup, Rx Given - Disposition Disposition: HOME/ ROUTINE Disposition Time: 04:58 Condition: STABLE Additional Instructions: Please follow up in clinic Return to ER if worse Prescriptions: Acetaminophen/Butalbital/Caf [Fioricet] 1 tab PO TID PRN #15 tab PRN Reason: Headache Forms: [employer] (Portuguese) - Clinical Impression Clinical Impression: Migraine headache, Medication refill - PA / PUBLICATION DESIGNER / Resident Statement MD/DO has reviewed & agrees with the documentation as recorded. - Scribe Statement The provider has reviewed the documentation as recorded by the Sherri Bello All medical record entries made by the Peteribmireya were at my direction and personally dictated by me. I have reviewed the chart and agree that the record accurately reflects my personal performance of the history, physical exam, medical decision making, and the department course for this patient. I have also personally directed, reviewed, and agree with the discharge instructions and disposition.
[2018-02-01 04:55] VITALS: BP 121/81; PULSE 81; RESP 18; TEMP 98.3
[2018-02-01 04:58] VITALS: O2SAT 97
== END 2018-02-01 05:08 | disposition home or self-care (01) ==
LOC: C.ER 02:21
DX: G43.909 Migraine, unspecified, not intractable, without status migrainosus (principal); Z76.0 Encounter for issue of repeat prescription

== ENCOUNTER 2018-02-05 08:38 | Emergency (ER) | payer MEDICARE ==
[2018-02-05 08:46] VITALS: BMI 32.5
[2018-02-05 08:49] VITALS: RESP 18
--- NOTE | 2018-02-05 09:04 | C.PDOC ---
History Of Present Illness 27 year old female, with past medical history of chronic migraines, presents to ED for evaluation of lower abdominal and pelvic discomfort for the past several days but constant since last night. Pt states she is not currently sexually active. Pt states, "It feels like I have a infection". Denies vaginal bleeding, vaginal discharge, dysuria, hematuria, urinary frequency, n/v/d, constipation, back pain, fever, or chills. Time Seen by Provider: 02/05/18 08:54 Chief Complaint (Nursing): Abdominal Pain History Per: Patient History/Exam Limitations: no limitations Onset/Duration Of Symptoms: Days Current Symptoms Are (Timing): Still Present Location Of Pain/Discomfort: Suprapubic Radiation Of Pain To:: None Quality Of Discomfort: Unable To Describe Associated Symptoms: denies: Loss Of Appetite, Back Pain, Chest Pain, Constipation, Urinary Symptoms Exacerbating Factors: None Alleviating Factors: None Recent travel outside of the [place]: No Additional History Per: Patient Abnormal Vaginal Bleeding: No Past Medical History Reviewed: Historical Data, Nursing Documentation, Vital Signs Vital Signs: Last Vital Signs Temp 98.4 F 02/05/18 08:46 Pulse 96 H 02/05/18 08:46 Resp 18 02/05/18 08:46 BP 109/81 02/05/18 08:46 Pulse Ox 99 02/05/18 11:05 - Medical History PMH: Migraine, Personality Disorder, Schizophrenia Denies: HIV, HTN, Chronic Kidney Disease, Sexually Transmitted Disease Family History: States: Unknown Family Hx - Social History Hx Tobacco Use: No Hx Alcohol Use: No Hx Substance Use: No - Immunization History Hx Tetanus Toxoid Vaccination: No Hx Influenza Vaccination: No Hx Pneumococcal Vaccination: No Review Of Systems Except As Marked, All Systems Reviewed And Found Negative. Constitutional: Negative for: Fever, Chills Cardiovascular: Negative for: Chest Pain, Palpitations Respiratory: Negative for: Cough, Shortness of Breath Gastrointestinal: Positive for: Abdominal Pain. Negative for: Nausea, Vomiting , Diarrhea, Constipation Genitourinary: Positive for: Pelvic Pain. Negative for: Dysuria, Frequency, Incontinence, Hematuria, Vaginal Discharge, Vaginal Bleeding Neurological: Negative for: Headache, Dizziness Physical Exam - Physical Exam Appears: Non-toxic, No Acute Distress, Other (obese) Skin: Normal Color, Warm, Dry Head: Atraumatic, Normacephalic Eye(s): bilateral: Normal Inspection Oral Mucosa: Moist Neck: Normal ROM, Supple Chest: Symmetrical Cardiovascular: Rhythm Regular, No Murmur Respiratory: Normal Breath Sounds, No Accessory Muscle Use, No Rales, No Rhonchi , No Wheezing Gastrointestinal/Abdominal: Soft, No Tenderness, No Guarding, No Rebound Back: No CVA Tenderness Extremity: Normal ROM, No Deformity Neurological/Psych: Oriented x3, Normal Speech ED Course And Treatment O2 Sat by Pulse Oximetry: 99 (RA) Pulse Ox Interpretation: Normal Disposition Counseled Patient/Family Regarding: Studies Performed, Need For Followup, Rx Given - Disposition Referrals: [facility] at [facility] [Outside] Disposition Time: 12:05 Condition: STABLE Forms: [facility] (Bulgarian), General Discharge Instructions - POA Present On Arrival: None - Clinical Impression Clinical Impression: Abdominal pain - Scribe Statement The provider has reviewed the documentation as recorded by the Scribe KP All medical record entries made by the Scribe were at my direction and personally dictated by me. I have reviewed the chart and agree that the record accurately reflects my personal performance of the history, physical exam, medical decision making, and the department course for this patient. I have also personally directed, reviewed, and agree with the discharge instructions and disposition.
[2018-02-05 10:39] LABS: SQUAMOUS EPITHIAL 2 /hpf (0-5); URINE BACTERIA RARE (<OCC); URINE BILIRUBIN NEGATIVE (NEGATIVE); URINE BLOOD 2+ (NEGATIVE); URINE CLARITY Hazy (Clear); URINE COLOR Yellow (YELLOW); URINE GLUCOSE (UA) NORMAL (Normal); URINE LEUKOCYTE ESTERASE NEG Leu/uL (Negative); URINE PROTEIN NEGATIVE (NEGATIVE); URINE UROBILINOGEN NORMAL mg/dL (0.2-1.0)
[2018-02-05 10:40] LABS: HCG,QUALITATIVE URINE NEGATIVE (NEGATIVE)
--- NOTE | 2018-02-05 12:15 | RAD ---
Abdomen two views History: Abdominal pain. Comparison: None available. Findings: Moderate fecal retention in the colon. No evidence of gross bowel obstruction. Few calcified phleboliths in the pelvis. Impression: Fecal retention in the colon.
[2018-02-05 12:44] VITALS: BP 112/78; PULSE 88; TEMP 98; O2SAT 97
== END 2018-02-05 12:43 | disposition home or self-care (01) ==
LOC: C.ER 08:38
DX: R10.9 Unspecified abdominal pain (principal); F20.9 Schizophrenia, unspecified

== ENCOUNTER 2018-02-27 05:55 | Emergency (ER) | payer MEDICARE ==
[2018-02-27 05:56] VITALS: BMI 32.5
[2018-02-27 06:04] VITALS: TEMP 98.7
--- NOTE | 2018-02-27 06:25 | C.PDOC ---
Time Seen by Provider: 02/27/18 06:06 Chief Complaint (Nursing): Headache History Per: Patient Onset/Duration Of Symptoms: Days (1), Gradual Current Symptoms Are (Timing): Still Present Severity: Moderate Quality: "Pain" Associated Symptoms: Nausea Additional History Per: Prior Records Past Medical History Reviewed: Historical Data, Nursing Documentation, Vital Signs Vital Signs: Last Vital Signs Temp 98.7 F 02/27/18 06:01 Pulse 90 02/27/18 06:01 Resp 14 02/27/18 06:01 BP 107/77 02/27/18 06:01 Pulse Ox 100 02/27/18 06:25 - Medical History PMH: Migraine, Personality Disorder, Schizophrenia Surgical History: No Surg Hx Family History: States: Unknown Family Hx - Social History Hx Tobacco Use: No Hx Alcohol Use: No Hx Substance Use: No - Immunization History Hx Tetanus Toxoid Vaccination: No Hx Influenza Vaccination: No Hx Pneumococcal Vaccination: No Review Of Systems Except As Marked, All Systems Reviewed And Found Negative. Constitutional: Negative for: Fever, Weakness ENT: Negative for: Nose Congestion, Throat Pain Cardiovascular: Negative for: Chest Pain Respiratory: Negative for: Cough, Shortness of Breath Gastrointestinal: Negative for: Vomiting, Abdominal Pain Musculoskeletal: Negative for: Neck Pain Skin: Negative for: Rash Neurological: Negative for: Weakness, Numbness, Seizures, Altered Mental Status , Dizziness Physical Exam - Physical Exam Appears: Non-toxic, No Acute Distress Skin: Normal Color, Warm, Dry, No Rash Head: Atraumatic, Normacephalic Eye(s): bilateral: PERRL, EOMI Neck: Normal ROM, Supple Cardiovascular: Rhythm Regular Respiratory: Normal Breath Sounds, No Accessory Muscle Use Gastrointestinal/Abdominal: Soft, No Tenderness Extremity: Normal ROM, No Deformity Neurological/Psych: Oriented x3, Normal Speech, Normal Cognition, Normal Motor, Normal Sensation ED Course And Treatment O2 Sat by Pulse Oximetry: 100 Pulse Ox Interpretation: Normal Reassessment Condition: Improved Disposition Counseled Patient/Family Regarding: Diagnosis, Need For Followup, Rx Given - Disposition Disposition: HOME/ ROUTINE Disposition Time: 06:56 Condition: IMPROVED Additional Instructions: Follow up with your doctor. Return to the ER if you develop weakness, numbness, vomiting, worsening of symptoms or if you have any other concerns. Prescriptions: Naproxen [Naprosyn] 1 tab PO BID PRN #20 tab PRN Reason: Pain Instructions: Headache, Adult (DC) Forms: [facility] (Argentine) - Clinical Impression Clinical Impression: Headache
[2018-02-27 07:03] VITALS: BP 118/72; PULSE 72; RESP 18; O2SAT 98
== END 2018-02-27 07:03 | disposition home or self-care (01) ==
LOC: C.ER 05:55
DX: R51 Headache (principal)
CPT/HCPCS: 96372; 99284; J1885

== ENCOUNTER 2018-04-12 15:22 | Emergency (ER) | payer MEDICARE ==
[2018-04-12 15:23] VITALS: BMI 32.5
[2018-04-12 15:41] VITALS: BP 116/78; PULSE 97; RESP 18; TEMP 98.3; O2SAT 98
== END 2018-04-12 15:50 | disposition left against medical advice (07) ==
LOC: C.ER 15:22
DX: Z02.89 Encounter for other administrative examinations (principal); R06.02 Shortness of breath

== ENCOUNTER 2018-05-05 11:52 | Emergency (ER) | payer MEDICARE ==
[2018-05-05 11:52] VITALS: BMI 32.5
[2018-05-05 12:04] VITALS: BP 120/87; PULSE 95; RESP 20; O2SAT 97
--- NOTE | 2018-05-05 13:21 | C.PDOC ---
History Of Present Illness 27 y/o female, w/PMhx of migraines, presents to the ER complaining of headache which began this morning. Patient describes pain as throbbing bilaterally across the forehead. Has associated nausea. Patient reports that the headache is similar to her typical migraines. Pt took a generic migraine medication without relief in the morning. She states that Fioricet usually provides relief, but she ran out of the medication. Denies visual changes, photophobia, vomiting, fever, chills, ear pain, sore throat, and dizziness. Chief Complaint (Nursing): Headache History Per: Patient History/Exam Limitations: no limitations Onset/Duration Of Symptoms: Hrs Current Symptoms Are (Timing): Still Present Severity: Moderate Past Medical History Reviewed: Historical Data, Nursing Documentation, Vital Signs Vital Signs: Last Vital Signs Temp Pulse 95 H 05/05/18 12:00 Resp 20 05/05/18 12:00 BP 120/87 05/05/18 12:00 Pulse Ox 97 05/05/18 12:00 - Medical History PMH: Migraine, Personality Disorder, Schizophrenia Denies: HIV, HTN, Chronic Kidney Disease, Sexually Transmitted Disease Surgical History: No Surg Hx Family History: States: No Known Family Hx - Social History Hx Tobacco Use: No Hx Alcohol Use: Yes Hx Substance Use: No - Immunization History Hx Tetanus Toxoid Vaccination: No Hx Influenza Vaccination: No Hx Pneumococcal Vaccination: No Review Of Systems Except As Marked, All Systems Reviewed And Found Negative. Constitutional: Negative for: Fever, Chills Eyes: Negative for: Pain, Vision Change, Conjunctivae Inflammation ENT: Negative for: Ear Pain, Throat Pain Cardiovascular: Negative for: Chest Pain, Palpitations Respiratory: Negative for: Cough, Shortness of Breath Gastrointestinal: Negative for: Nausea, Vomiting, Abdominal Pain Musculoskeletal: Negative for: Neck Pain, Back Pain Skin: Negative for: Rash Neurological: Positive for: Headache. Negative for: Weakness, Numbness, Change in Speech, Confusion, Altered Mental Status, Dizziness Physical Exam - Physical Exam Appears: Non-toxic, Other (uncomfortable) Skin: Normal Color, Warm, Dry Head: Atraumatic, Normacephalic Eye(s): bilateral: Normal Inspection, PERRL, EOMI Nose: Normal Oral Mucosa: Moist Tongue: Normal Appearing Lips: Normal Appearing Throat: Normal, No Erythema, No Exudate Neck: Normal, Normal ROM, No Trachea Deviated, No Midline Cervical Tenderness, No Paracervical Tenderness, Supple Lymphatic: Normal Exam Chest: Symmetrical Cardiovascular: Rhythm Regular Respiratory: Normal Breath Sounds, No Rales, No Rhonchi, No Wheezing Extremity: Normal ROM, No Tenderness Neurological/Psych: Oriented x3, Normal Speech, Normal Cognition, Normal Cranial Nerves, No Cerebellar Signs, Normal Motor, Normal Sensation Gait: Steady Other Neurological Findings: No Facial Palsy, No Tongue Deviation ED Course And Treatment O2 Sat by Pulse Oximetry: 97 (RA) Pulse Ox Interpretation: Normal Medical Decision Making Medical Decision Making: Initial Plan: --Benadryl PO --Reglan IV --Toradol IV Progress: Upon re-evaluation, patient feels better. Patient left before picking up her discharge papers. Impression: Migraine Headache Plan: Take ibuprofen as needed for pain increase fluids rest, no strenuous activity renew fioricet prescription followup with Dr. Lama within 2 days followup with PMD within 2 days Return if symptoms worsen Disposition - Disposition Referrals: [facility] at [facility] [Outside] Augie Lama MD [Staff Provider] - Disposition: HOME/ ROUTINE Disposition Time: 13:30 Condition: IMPROVED Additional Instructions: Take fioricet as needed for headaches as prescribed Followup with Dr. Lama within 2 days Return to ED if symptoms worsen Prescriptions: Acetaminophen/Butalbital/Caf [Fioricet] 1 tab PO Q6H PRN #20 tab PRN Reason: Pain, Severe (8-10) Forms: [facility] (Uzbek) - Clinical Impression Clinical Impression: Migraine - PA / HUMAN RESOURCES DISTRICT MANAGER / Resident Statement MD/DO has reviewed & agrees with the documentation as recorded. - Scribe Statement The provider has reviewed the documentation as recorded by the Sherri Ray Provider Attestation All medical record entries made by the Peteribe were at my direction and personally dictated by me. I have reviewed the chart and agree that the record accurately reflects my personal performance of the history, physical exam, medical decision making, and the department course for this patient. I have also personally directed, reviewed, and agree with the discharge instructions and disposition.
[2018-05-05] MEDS ORDERED: Apap-Butalbital-Caffeine 325-50-40mg Tab PO STA (13:23)
[2018-05-05] MEDS ORDERED: Sodium Chloride 0.9% 1,000 ML IV ONE (13:26)
== END 2018-05-05 13:54 | disposition home or self-care (01) ==
LOC: C.ER 11:52
DX: G43.909 Migraine, unspecified, not intractable, without status migrainosus (principal)
CPT/HCPCS: 96372; 99283; J1885

== ENCOUNTER 2018-05-21 14:51 | Emergency (ER) | payer MEDICARE ==
[2018-05-21 14:51] VITALS: BMI 32.5
[2018-05-21 15:09] VITALS: BP 130/87; PULSE 99; RESP 16; TEMP 99; O2SAT 99
[2018-05-21 15:26] LABS: BASO # 0.2 K/uL (0.0-0.2); EOS # 0.2 K/uL (0.0-0.7); HEMOGLOBIN 11.9 g/dL (11.0-16.0); LYMPH # 3.6 K/uL (1.0-4.3); LYMPH % 19.8 % (20.0-40.0); MEAN CELL VOLUME 80.1 fL (81.0-99.0); MEAN CORPUSCULAR HEMOGLOBIN 26.2 pg (27.0-31.0); MEAN CORPUSCULAR HGB CONC 32.7 g/dL (33.0-37.0); MEAN PLATELET VOLUME 7.7 fL (7.2-11.7); MONO # 0.6 K/uL (0.0-0.8); MONO % 3.1 % (0.0-10.0); NEUT # 13.5 K/uL (1.8-7.0); NEUT % 75.1 % (50.0-75.0); RBC 4.53 Mil/uL (3.80-5.20); RED CELL DISTRIBUTION WIDTH 14.1 % (11.5-14.5)
[2018-05-21 15:34] LABS: SQUAMOUS EPITHIAL 1 /hpf (0-5); URINE BILIRUBIN NEGATIVE (NEGATIVE); URINE BLOOD 1+ (NEGATIVE); URINE CLARITY Clear (Clear); URINE COLOR Yellow (YELLOW); URINE GLUCOSE (UA) NORMAL (Normal); URINE LEUKOCYTE ESTERASE NEG Leu/uL (Negative); URINE PROTEIN NEGATIVE (NEGATIVE); URINE UROBILINOGEN NORMAL mg/dL (0.2-1.0)
[2018-05-21 15:42] LABS: BARBITURATES, UR NEGATIVE (NEGATIVE); BENZODIAZEPINES, UR NEGATIVE (NEGATIVE); OPIATES, UR NEGATIVE (NEGATIVE); PHENCYCLIDINE, UR NEGATIVE (NEGATIVE)
[2018-05-21 15:44] LABS: ALB/GLOB RATIO 1.1 (1.0-2.1); ALT/SGPT 21 U/L (9-52); AST/SGOT 16 U/L (14-36); BLOOD UREA NITROGEN 11 mg/dL (7-17); CALCIUM 9.6 mg/dl (8.6-10.4); GFR NON-AFRICAN AMERICAN > 60
--- NOTE | 2018-05-21 16:43 | RAD ---
Date of service: 05/21/2018 HISTORY: r/o infiltrate COMPARISON: Portable chest 10/06/2014. FINDINGS: LUNGS: Diminished history volume. No acute infiltrate bilaterally. PLEURA: No significant pleural effusion identified, no pneumothorax apparent. CARDIOVASCULAR: Cardiac silhouette appears prominent likely is a function of technical magnification. No definite aortic atherosclerotic calcification identified. No pulmonary vascular congestion. OSSEOUS STRUCTURES: No significant abnormalities. VISUALIZED UPPER ABDOMEN: Normal. OTHER FINDINGS: None. IMPRESSION: Diminished inspiratory volume. No pulmonary vascular congestion.
--- NOTE | 2018-05-21 17:09 | C.PDOC ---
History Of Present Illness 27 y/o female pt brought to the ED by EMS for psychiatric evaluation. According to EMS, pt's mom called 9-11. Pt denies SI/HI and hallucination. Pt has no other physical complaints at this time. Pt denies argument or conflicts with mom. Time Seen by Provider: 05/21/18 15:01 Chief Complaint (Nursing): Psychiatric Evaluation History Per: Patient History/Exam Limitations: no limitations Onset/Duration Of Symptoms: Mins Past Medical History Reviewed: Historical Data, Nursing Documentation, Vital Signs Vital Signs: Last Vital Signs Temp 99.0 F 05/21/18 15:08 Pulse 99 H 05/21/18 15:08 Resp 16 05/21/18 15:08 BP 130/87 05/21/18 15:08 Pulse Ox 99 05/21/18 15:08 - Medical History PMH: Migraine, Personality Disorder, Schizophrenia Family History: States: Unknown Family Hx - Social History Hx Tobacco Use: No Hx Alcohol Use: Yes Hx Substance Use: No - Immunization History Hx Tetanus Toxoid Vaccination: No Hx Influenza Vaccination: No Hx Pneumococcal Vaccination: No Review Of Systems Except As Marked, All Systems Reviewed And Found Negative. Constitutional: Positive for: Other (psychiatric eval) Neurological: Negative for: Other (hallucination) Psych: Negative for: Suicidal ideation, Other (homicidal ideation ) Physical Exam - Physical Exam Appears: Well, Non-toxic, No Acute Distress Skin: Normal Color, Warm, Dry Head: Atraumatic, Normacephalic Eye(s): bilateral: Normal Inspection, PERRL, EOMI Ear(s): Bilateral: Normal Nose: Normal Oral Mucosa: Moist Throat: Normal Neck: Normal ROM, Supple Cardiovascular: Rhythm Regular Respiratory: Normal Breath Sounds Gastrointestinal/Abdominal: Soft, No Tenderness Extremity: Normal ROM (x4) Neurological/Psych: Oriented x3, Normal Speech ED Course And Treatment - Laboratory Results Result Diagrams: 05/21/18 15:22 05/21/18 15:22 ECG: Interpreted By Me, Viewed By Me ECG Rhythm: Sinus Rhythm O2 Sat by Pulse Oximetry: 99 (RA) Pulse Ox Interpretation: Normal - Other Rad chest X-Ray: Read By Radiologist Interpretation: Accession No. : [id number]. Patient Name / ID : DENISE Paz / [id number]. Exam Date : 05/21/2018 15:04:35 ( Approved ). Study Comment : Sex / Age : F / 27Y. Creator : Xavier Uribe MD. Dictator : Xavier Uribe MD. Employee Relations Manager : Lock Installer : Xavier Uribe MD. Approver2 : Report Date : 05/21/2018 16:39:53. My Comment : . Date of service: 05/21/2018. HISTORY: r/o infiltrate. COMPARISON: Portable chest 10/06/2014. FINDINGS: LUNGS: Diminished history volume. No acute infiltrate bilaterally. PLEURA: No significant pleural effusion identified, no pneumothorax apparent. CARDIOVASCULAR: Cardiac silhouette appears prominent likely is a function of technical magnification. No definite aortic atherosclerotic calcification identified. No pulmonary vascular congestion. OSSEOUS STRUCTURES: No significant abnormalities. VISUALIZED UPPER ABDOMEN: Normal. OTHER FINDINGS: None. IMPRESSION: Diminished inspiratory volume. No pulmonary vascular congestion. Medical Decision Making Medical Decision Making: Impression: psychiatric evaluation Plans: -- EKG -- chem labs -- blood work -- CXR -- UA -- risperdal -- HCG -- UA re-eval: pt doesn't need criteria for screening as per crisis. Pt received 1 mg of risperdal at ED and will receive rx of 5 tablets and f/u as per crisis. Disposition - Disposition Referrals: Osmin Boyer, [Non-Staff] - Disposition: HOME/ ROUTINE Disposition Time: 17:00 Condition: GOOD Additional Instructions: VALERIA WALKER, thank you for letting us take care of you today. The emergency medical care you received today was directed at your acute symptoms. If you were prescribed any medication, please fill it and take as directed. It may take several days for your symptoms to resolve. Return to the Emergency Department if your symptoms worsen, do not improve, or if you have any other problems. Please contact your doctor or call one of the physicians/clinics you have been referred to that are listed on the Patient Visit Information form that is included in your discharge packet. Bring any paperwork you were given at discharge with you along with any medications you are taking to your follow up visit. Our treatment cannot replace ongoing medical care by a primary care prov ider outside of the emergency department. Thank you for allowing the [facility] team to be part of your care today. Take your medication as prescribed. Follow up with [facility] or [facility] as directed by our psychiatric department. Prescriptions: Risperidone [Risperdal] 1 mg PO DAILY #5 tablet Instructions: Schizophrenia (DC) Forms: [employer] (Japanese) - Clinical Impression Clinical Impression: Schizophrenia - Scribe Statement The provider has reviewed the documentation as recorded by the Scribe Ramirez Do Provider Attestation: All medical record entries made by the Scribe were at my direction and personally dictated by me. I have reviewed the chart and agree that the record accurately reflects my personal performance of the history, physical exam, medical decision making, and the department course for this patient. I have also personally directed, reviewed, and agree with the discharge instructions and d isposition.
--- NOTE | 2018-05-23 12:51 | CARD ---
APPROVED REPORT Date of service: 05/21/2018 EKG Measurement Heart [id number] <Conclusion> Normal sinus rhythm Nonspecific T wave abnormality Abnormal ECG
== END 2018-05-21 17:07 | disposition home or self-care (01) ==
LOC: C.ER 14:51
DX: F20.9 Schizophrenia, unspecified (principal)
CPT/HCPCS: 71045; 80053; 81001; 83735; 84100; 84703; 85025; 93005; 99284; G0480

== ENCOUNTER 2018-05-30 23:08 | Emergency (ER) | payer MEDICARE ==
[2018-05-30 23:08] VITALS: BMI 32.5
[2018-05-30 23:16] VITALS: BP 115/75; PULSE 80; RESP 14; TEMP 98; O2SAT 99
[2018-05-30] MEDS ORDERED: Apap-Butalbital-Caffeine 325-50-40mg Tab PO STA (23:53)
[2018-05-30] MEDS ORDERED: Apap-Butalbital-Caffeine 325-50-40mg Tab ONE (23:58)
--- NOTE | 2018-05-31 00:22 | C.PDOC ---
History Of Present Illness 27 year old female with a Hx of chronic migraine headaches presents to the ER stating she ran out of her medications and is requesting a dose now. Patient has been seen several times in the past for the same complaint. Denies photophobia, nausea, or vomiting. Time Seen by Provider: 05/30/18 23:26 Chief Complaint (Nursing): Headache History Per: Patient History/Exam Limitations: no limitations Onset/Duration Of Symptoms: Hrs Current Symptoms Are (Timing): Still Present Preceeding Symptoms: Known Migraine Symptoms Associated Symptoms: denies: Photophobia, Blurred Vision, Nausea, Vomiting, Extremity Weakness Recent travel outside of the [place]: No Past Medical History Reviewed: Historical Data, Nursing Documentation, Vital Signs Vital Signs: Last Vital Signs Temp 98 F 05/30/18 23:12 Pulse 80 05/30/18 23:12 Resp 14 05/30/18 23:12 BP 115/75 05/30/18 23:12 Pulse Ox 99 05/30/18 23:12 - Medical History PMH: Migraine, Personality Disorder, Schizophrenia Denies: HIV, HTN, Chronic Kidney Disease, Sexually Transmitted Disease Family History: States: Unknown Family Hx - Social History Hx Tobacco Use: No Hx Alcohol Use: Yes Hx Substance Use: No - Immunization History Hx Tetanus Toxoid Vaccination: No Hx Influenza Vaccination: No Hx Pneumococcal Vaccination: No Review Of Systems Constitutional: Negative for: Fever, Chills Eyes: Negative for: Other (Photophobia) Gastrointestinal: Negative for: Nausea, Vomiting Neurological: Positive for: Headache Physical Exam - Physical Exam Appears: Non-toxic, Unkempt Skin: Normal Color, Warm, Dry Head: Atraumatic, Normacephalic Eye(s): bilateral: Normal Inspection, PERRL, EOMI Ear(s): Bilateral: Normal Nose: Normal Oral Mucosa: Moist Throat: Normal, No Erythema, No Exudate Neck: Normal, No Midline Cervical Tenderness, No Paracervical Tenderness, Supple Neurological/Psych: Oriented x3, Normal Speech, Normal Motor, Normal Sensation Gait: Steady ED Course And Treatment O2 Sat by Pulse Oximetry: 99 (Room air) Pulse Ox Interpretation: Normal Progress Note: Fioricet administered with relief. Patient is resting comfortably in the ER in no acute distress, vitals are stable, will discharge home with Rx and advise to follow up with PMD. Disposition Counseled Patient/Family Regarding: Diagnosis, Need For Followup, Rx Given - Disposition Referrals: Samara Love MD [Staff Provider] - Disposition: HOME/ ROUTINE Disposition Time: 00:18 Condition: STABLE Additional Instructions: Please continue current medication Follow up with PMD Return to ER if worse Prescriptions: Acetaminophen/Butalbital/Caf [Fioricet] 1 tab PO TID PRN #20 tab PRN Reason: Headache Instructions: Migraine Headaches in Adults Forms: [facility] [facility] (Romansh) - Clinical Impression Clinical Impression: Migraine headache - PA / REFINISH TECHNICIAN / Resident Statement MD/DO has reviewed & agrees with the documentation as recorded. - Scribe Statement The provider has reviewed the documentation as recorded by the Scribe Julian Guerra All medical record entries made by the Peteribmireya were at my direction and personally dictated by me. I have reviewed the chart and agree that the record accurately reflects my personal performance of the history, physical exam, medical decision making, and the department course for this patient. I have also personally directed, reviewed, and agree with the discharge instructions and disposition.
== END 2018-05-31 00:35 | disposition home or self-care (01) ==
LOC: C.ER 23:08
DX: G43.909 Migraine, unspecified, not intractable, without status migrainosus (principal)

== ENCOUNTER 2018-06-18 12:22 | Emergency (ER) | payer MEDICARE ==
[2018-06-18 12:22] VITALS: BMI 32.5
[2018-06-18 12:33] VITALS: BP 123/81; PULSE 99; RESP 18; TEMP 97.6; O2SAT 100
--- NOTE | 2018-06-18 12:39 | C.PDOC ---
Chief Complaint (Nursing): Headache Past Medical History Vital Signs: Last Vital Signs Temp 97.6 F 06/18/18 12:31 Pulse 99 H 06/18/18 12:31 Resp 18 06/18/18 12:31 BP 123/81 06/18/18 12:31 Pulse Ox 100 06/18/18 12:31 - Medical History PMH: Migraine, Personality Disorder, Schizophrenia Denies: HIV, HTN, Chronic Kidney Disease, Sexually Transmitted Disease Family History: States: Unknown Family Hx - Social History Hx Tobacco Use: No Hx Alcohol Use: Yes Hx Substance Use: No - Immunization History Hx Tetanus Toxoid Vaccination: No Hx Influenza Vaccination: No Hx Pneumococcal Vaccination: No ED Course And Treatment O2 Sat by Pulse Oximetry: 100 Disposition - Disposition
[2018-06-18] MEDS ORDERED: Apap-Butalbital-Caffeine 325-50-40mg Tab PO STA (12:54)
[2018-06-18] MEDS ORDERED: Apap-Butalbital-Caffeine 325-50-40mg Tab ONE (13:07)
--- NOTE | 2018-06-18 14:21 | C.PDOC ---
History Of Present Illness 27 y/o female presents to ER complaining of a migraine and headache that started this morning. Patient states that she normally takes fioricet for the migraine but ran out of the medication and has a history of multiple visits to the ER for similar complaints. Patient looked annoyed and was not cooperative with answering questions, and answered with an attitude. Time Seen by Provider: 06/18/18 12:42 Chief Complaint (Nursing): Headache History Per: Patient History/Exam Limitations: no limitations Onset/Duration Of Symptoms: Hrs Current Symptoms Are (Timing): Still Present Past Medical History Reviewed: Historical Data, Nursing Documentation, Vital Signs Vital Signs: Last Vital Signs Temp 97.6 F 06/18/18 12:31 Pulse 99 H 06/18/18 12:31 Resp 18 06/18/18 12:31 BP 123/81 06/18/18 12:31 Pulse Ox 100 06/18/18 12:31 - Medical History PMH: Migraine, Personality Disorder, Schizophrenia Denies: HIV, HTN, Chronic Kidney Disease, Sexually Transmitted Disease Family History: States: No Known Family Hx - Social History Hx Tobacco Use: No Hx Alcohol Use: Yes Hx Substance Use: No - Immunization History Hx Tetanus Toxoid Vaccination: No Hx Influenza Vaccination: No Hx Pneumococcal Vaccination: No Review Of Systems Except As Marked, All Systems Reviewed And Found Negative. Constitutional: Negative for: Fever Cardiovascular: Negative for: Chest Pain Respiratory: Negative for: Shortness of Breath Gastrointestinal: Negative for: Nausea, Vomiting, Abdominal Pain, Diarrhea Neurological: Positive for: Headache. Negative for: Weakness, Numbness Physical Exam - Physical Exam Appears: Non-toxic, No Acute Distress, Other (irritated and annoyed) Skin: Warm, Dry, No Rash Head: Atraumatic, Normacephalic, No Tenderness Eye(s): bilateral: Normal Inspection Oral Mucosa: Moist Neck: Supple Cardiovascular: Rhythm Regular, No Murmur Respiratory: Normal Breath Sounds, No Rales, No Rhonchi, No Wheezing Gastrointestinal/Abdominal: Soft, No Tenderness Extremity: Bilateral: Atraumatic, Normal Color And Temperature, Normal ROM Neurological/Psych: Oriented x3, Normal Speech Gait: Steady ED Course And Treatment O2 Sat by Pulse Oximetry: 100 (RA) Pulse Ox Interpretation: Normal Progress Note: Fioricet and zofran administered. On re-evaluation, patient is resting comfortably, and is in no acute distress. Patient is tolerating PO. 15:30 patient walked out of the ER and eloped. Disposition - Disposition Disposition: ELOPEMENT - ER ONLY Disposition Time: 14:21 Condition: STABLE Forms: [facility] (Greenlandic) - Clinical Impression Clinical Impression: Headache - PA / COLLEGE DEAN / Resident Statement MD/DO has reviewed & agrees with the documentation as recorded. - Scribe Statement The provider has reviewed the documentation as recorded by the Scribe Parris Holm All medical record entries made by the Peteribmireya were at my direction and personally dictated by me. I have reviewed the chart and agree that the record accurately reflects my personal performance of the history, physical exam, medi beck decision making, and the department course for this patient. I have also personally directed, reviewed, and agree with the discharge instructions and disposition.
== END 2018-06-18 13:42 | disposition left against medical advice (07) ==
LOC: C.ER 12:22
DX: R51 Headache (principal)

== ENCOUNTER → 2018-06-19 13:46 | Emergency (ER) | payer MEDICARE ==
[2018-06-19 13:46] VITALS: BMI 32.5
== END | disposition left against medical advice (07) ==
LOC: C.ER 13:46
DX: Z02.89 Encounter for other administrative examinations (principal); R51 Headache

== ENCOUNTER 2018-06-29 18:35 | Emergency (ER) | payer MEDICARE ==
[2018-06-29 18:35] VITALS: BMI 32.5
[2018-06-29 18:52] VITALS: BP 123/77; PULSE 92; TEMP 98.5; O2SAT 100
[2018-06-29] MEDS ORDERED: Apap-Butalbital-Caffeine 325-50-40mg Tab PO STA (19:50)
[2018-06-29] MEDS ORDERED: Apap-Butalbital-Caffeine 325-50-40mg Tab ONE (19:58)
--- NOTE | 2018-06-29 20:16 | C.PDOC ---
History Of Present Illness 27 year old female, whose past medical history includes migraines and psychiatric history, presents to the ED for evaluation of exacerbation of migraine headache and nausea which began two hours ago. Patient states she ran out of [email or web address]. Patient has history of frequent visits to the ED for the same, but has failed to follow up with outpatient/PMD referrals on numerous occasions. Patient denies fever, chills, photophobia, neck pain, cough, sore throat, runny nose, extremity numbness/weakness. Time Seen by Provider: 06/29/18 19:23 Chief Complaint (Nursing): Headache History Per: Patient History/Exam Limitations: no limitations Onset/Duration Of Symptoms: Hrs (2) Current Symptoms Are (Timing): Still Present Quality: Aching Preceeding Symptoms: Known Migraine Symptoms Associated Symptoms: Nausea. denies: Photophobia, Extremity Weakness Additional History Per: Patient Past Medical History Reviewed: Historical Data, Nursing Documentation, Vital Signs Vital Signs: Last Vital Signs Temp 98.5 F 06/29/18 18:50 Pulse 92 H 06/29/18 18:50 Resp 16 06/29/18 18:50 BP 123/77 06/29/18 18:50 Pulse Ox 100 06/29/18 18:50 - Medical History PMH: Migraine, Personality Disorder, Schizophrenia Denies: HIV, HTN, Chronic Kidney Disease, Sexually Transmitted Disease Surgical History: No Surg Hx Family History: States: Unknown Family Hx - Social History Hx Tobacco Use: No Hx Alcohol Use: Yes Hx Substance Use: No - Immunization History Hx Tetanus Toxoid Vaccination: No Hx Influenza Vaccination: No Hx Pneumococcal Vaccination: No Review Of Systems Constitutional: Negative for: Fever, Chills Eyes: Negative for: Other (photophobia ) ENT: Negative for: Nose Discharge, Throat Pain Respiratory: Negative for: Cough Gastrointestinal: Positive for: Nausea Musculoskeletal: Negative for: Neck Pain Neurological: Positive for: Headache (migraine ). Negative for: Weakness, Numbness Physical Exam - Physical Exam Appears: Non-toxic, No Acute Distress, Unkempt Skin: Normal Color, Warm, Dry Head: Atraumatic, Normacephalic, No Tenderness (sinus ) Eye(s): bilateral: Normal Inspection Ear(s): Bilateral: Normal Nose: Other (rhinorrhea ) Oral Mucosa: Moist Throat: Normal, No Erythema, No Exudate Neck: Normal ROM, Supple Chest: Symmetrical Cardiovascular: Rhythm Regular Respiratory: Normal Breath Sounds Extremity: Normal ROM Neurological/Psych: Oriented x3, Normal Speech, Normal Cognition ED Course And Treatment O2 Sat by Pulse Oximetry: 100 (on RA) Pulse Ox Interpretation: Normal Progress Note: Patient is requesting a dose of fioricet. Fioricet PO and Zofran PO given. On reassessment, patient is resting comfortably, showing no signs of distress and reports an improvement in her symmptoms. Patient is stable for discharge and is advised to follow up with her PMD within 1-2 days for further evaluation. She is advised to return to the ED if symptoms persist or worsen. Disposition Counseled Patient/Family Regarding: Diagnosis, Need For Followup - Disposition Disposition: HOME/ ROUTINE Disposition Time: 20:16 Condition: STABLE Additional Instructions: Please take medication as directed Follow up in clinic Return to ER if worse Prescriptions: Acetaminophen/Butalbital/Caf [Fioricet] 1 tab PO TID PRN #15 tab PRN Reason: Headache Instructions: Migraine Headache (DC) Forms: [employer] (Vincentian) - Clinical Impression Clinical Impression: Migraine headache - PA / GUITAR REPAIR TECHNICIAN / Resident Statement MD/DO has reviewed & agrees with the documentation as recorded. - Scribe Statement The provider has reviewed the documentation as recorded by the Scribe (Elizabeth Gomez) All medical record entries made by the Scribe were at my direction and personally dictated by me. I have reviewed the chart and agree that the record accurately reflects my personal performance of the history, physical exam, medical decision making, and the department course for this patient. I have also personally directed, reviewed, and agree with the discharge instructions and disposition.
[2018-06-29 20:33] VITALS: RESP 20
== END 2018-06-29 20:32 | disposition home or self-care (01) ==
LOC: C.ER 18:35
DX: G43.909 Migraine, unspecified, not intractable, without status migrainosus (principal)

== ENCOUNTER 2018-06-30 08:21 | Emergency (ER) | payer MEDICARE ==
[2018-06-30 08:21] VITALS: BMI 32.5
[2018-06-30 08:28] VITALS: RESP 18
[2018-06-30] MEDS ORDERED: Apap-Butalbital-Caffeine 325-50-40mg Tab PO STA (08:57)
--- NOTE | 2018-06-30 08:57 | C.PDOC ---
History Of Present Illness 27 y/o with PMH of migraines presents to the ED c/o migraine x 2 hours. Headache is frontal, described as throbbing. States it feels typical of her usual migraines. Pt was seen here last night, given Firoricet which provided relief. States the headache returned this morning, and the pharmacy isnt open yet to fill her prescription. Associated nausea. Asking for Fioricet. Denies fever, chills, neck pain, weakness, paresthesias, numbness, vision changes, vomiting, or any other associated symptoms. Time Seen by Provider: 06/30/18 08:30 Chief Complaint (Nursing): Headache History Per: Patient History/Exam Limitations: no limitations Onset/Duration Of Symptoms: Days Current Symptoms Are (Timing): Still Present Past Medical History Reviewed: Historical Data, Nursing Documentation, Vital Signs Vital Signs: Last Vital Signs Temp 97.6 F 06/30/18 08:24 Pulse 93 H 06/30/18 08:24 Resp 18 06/30/18 08:24 BP 116/79 06/30/18 08:24 Pulse Ox 100 06/30/18 08:24 - Medical History PMH: Migraine, Personality Disorder, Schizophrenia Surgical History: No Surg Hx Family History: States: No Known Family Hx - Social History Hx Tobacco Use: No Hx Alcohol Use: Yes Hx Substance Use: No - Immunization History Hx Tetanus Toxoid Vaccination: No Hx Influenza Vaccination: No Hx Pneumococcal Vaccination: No Review Of Systems Except As Marked, All Systems Reviewed And Found Negative. Constitutional: Negative for: Fever, Chills Eyes: Negative for: Pain, Vision Change ENT: Negative for: Ear Pain, Nose Pain, Nose Congestion, Mouth Swelling, Throat Pain, Throat Swelling Cardiovascular: Negative for: Chest Pain, Palpitations, Light Headedness Respiratory: Negative for: Cough, Shortness of Breath Gastrointestinal: Positive for: Nausea. Negative for: Vomiting, Abdominal Pain Musculoskeletal: Negative for: Neck Pain, Back Pain Skin: Negative for: Rash Neurological: Positive for: Headache. Negative for: Weakness, Numbness, Seizures, Dizziness Physical Exam - Physical Exam Appears: Well, Non-toxic, No Acute Distress Skin: Normal Color, Warm, Dry, No Rash Head: Atraumatic, Normacephalic Eye(s): bilateral: Normal Inspection, PERRL, EOMI Ear(s): Bilateral: Normal Nose: Normal Oral Mucosa: Moist Tongue: Normal Appearing Lips: Normal Appearing Throat: Normal, No Erythema, No Exudate Neck: Normal, Normal ROM, Supple, No Other (meningeal signs) Lymphatic: Normal Exam Chest: Symmetrical, No Tenderness Cardiovascular: Rhythm Regular Respiratory: Normal Breath Sounds, No Rales, No Rhonchi, No Wheezing Gastrointestinal/Abdominal: Normal Exam, Bowel Sounds (normoactive), Soft, No Tenderness, No Guarding, No Rebound Back: Normal Inspection, No CVA Tenderness, No Decreased ROM Extremity: Normal ROM, Capillary Refill (<2s) Extremity: Bilateral: Atraumatic, No Pedal Edema, Normal Color And Temperature, Normal ROM Pulses: Left Radial: Normal, Right Radial: Normal Neurological/Psych: Oriented x3, Normal Speech, Normal Cognition, Normal Cranial Nerves, Cerebellar Signs (normal), Normal Motor, Normal Sensation, Normal Reflexes Gait: Steady Other Neurological Findings: No Facial Palsy, No Forehead Sparing, No Tongue Deviation Extremity: Right: No Drift, Left: No Drift, Upper: No Drift, Lower: No Drift ED Course And Treatment - Laboratory Results Urine POC: Negative O2 Sat by Pulse Oximetry: 100 (RA) Pulse Ox Interpretation: Normal Medical Decision Making Medical Decision Making: Initial Plan * Fioricet * Zofran * Reassess and Disposition [id number] Patient reports complete resolution of symptoms after medication. Denies headache or nausea. Tolerated PO without difficulty. Ate a sandwich and 2 orange juices. Requesting discharge home. Plan of care discussed with patient, and strict instructions given regarding prescriptions, importance of follow up, and signs to return to Emergency Department, to include vision changes, worsening headache, vomiting, abdominal pain, neck pain, N/V, or any other new/worsening symptoms. Patient verbalizes understanding of discussion. Patient A&Ox3, ambulating with steady gait, stable for discharge home. Disposition - Disposition Referrals: [facility] [Outside] Augie Lama MD [Staff Provider] - Disposition: HOME/ ROUTINE Disposition Time: 09:55 Condition: IMPROVED Additional Instructions: Take fioricet as prescribed Increase fluids to stay hydrated Followup with neurologist within 2 days Followup with primary within 2 days Return to ER for any new/worsening symptoms Forms: [facility] (Telugu), Work Excuse - Clinical Impression Clinical Impression: Migraine headache - PA / SLIDE ATTENDANT / Resident Statement MD/DO has reviewed & agrees with the documentation as recorded. - Scribe Statement The provider has reviewed the documentation as recorded by the Scribe Arlene Blackman All medical record entries made by the Peteribmireya were at my direction and per sonally dictated by me. I have reviewed the chart and agree that the record accurately reflects my personal performance of the history, physical exam, medical decision making, and the department course for this patient. I have also personally directed, reviewed, and agree with the discharge instructions and disposition.
[2018-06-30] MEDS ORDERED: Apap-Butalbital-Caffeine 325-50-40mg Tab ONE (09:04)
[2018-06-30 10:17] VITALS: BP 116/75; PULSE 72; TEMP 98
[2018-06-30 10:18] VITALS: O2SAT 100
== END 2018-06-30 10:17 | disposition home or self-care (01) ==
LOC: C.ER 08:21
DX: G43.909 Migraine, unspecified, not intractable, without status migrainosus (principal); F20.9 Schizophrenia, unspecified

== ENCOUNTER 2018-07-09 16:27 | Emergency (ER) | payer MEDICARE ==
[2018-07-09 16:40] VITALS: BMI 37.0
[2018-07-09 16:46] VITALS: O2SAT 100
[2018-07-09 17:42] LABS: BASO # 0.1 K/uL (0.0-0.2); BASO % 0.5 % (0.0-2.0); EOS # 0.2 K/uL (0.0-0.7); EOS % 1.4 % (0.0-4.0); HEMOGLOBIN 11.1 g/dL (11.0-16.0); LYMPH # 4.3 K/uL (1.0-4.3); LYMPH % 34.4 % (20.0-40.0); MEAN CORPUSCULAR HEMOGLOBIN 25.4 pg (27.0-31.0); MEAN CORPUSCULAR HGB CONC 31.8 g/dL (33.0-37.0); MEAN PLATELET VOLUME 7.4 fL (7.2-11.7); MONO # 0.7 K/uL (0.0-0.8); MONO % 5.2 % (0.0-10.0); NEUT # 7.3 K/uL (1.8-7.0); NEUT % 58.5 % (50.0-75.0); NRBC % 0.1 % (0.0-2.0); RBC 4.36 Mil/uL (3.80-5.20); RED CELL DISTRIBUTION WIDTH 14.7 % (11.5-14.5); WHITE BLOOD COUNT 12.6 K/uL (4.8-10.8)
--- NOTE | 2018-07-09 17:46 | C.PDOC ---
History Of Present Illness 27 y/o female presents to ED complaining of nausea that started yesterday. Patient states she started feeling nauseous while on a train and got an overwhelming sense of wanting to vomit but didnt. Patient denies diarrhea, vomiting, fever, chills, abdominal pain, or any other discomfort. Nausea has been persistent since then but patient is able to eat and drink normally. Patient also complains of mild dizziness but not syncopal or vertigo. Last period started 2-3 days ago and is normal. Time Seen by Provider: 07/09/18 16:53 Chief Complaint (Nursing): GI Problem History Per: Patient History/Exam Limitations: no limitations Onset/Duration Of Symptoms: Days Current Symptoms Are (Timing): Still Present Past Medical History Reviewed: Historical Data, Nursing Documentation, Vital Signs Vital Signs: Last Vital Signs Temp 97.9 F 07/09/18 16:45 Pulse 99 H 07/09/18 16:45 Resp 17 07/09/18 16:45 BP 112/79 07/09/18 16:45 Pulse Ox 100 07/09/18 16:45 - Medical History PMH: Migraine, Personality Disorder, Schizophrenia Denies: HIV, HTN, Chronic Kidney Disease, Sexually Transmitted Disease Family History: States: No Known Family Hx - Social History Hx Tobacco Use: No Hx Alcohol Use: Yes Hx Substance Use: No - Immunization History Hx Tetanus Toxoid Vaccination: No Hx Influenza Vaccination: No Hx Pneumococcal Vaccination: No Review Of Systems Constitutional: Negative for: Fever, Chills Gastrointestinal: Positive for: Nausea. Negative for: Vomiting, Abdominal Pain, Diarrhea Neurological: Positive for: Dizziness Physical Exam - Physical Exam Appears: Non-toxic, No Acute Distress Skin: Warm, Dry Head: Atraumatic, Normacephalic Eye(s): bilateral: Normal Inspection Oral Mucosa: Moist Neck: Supple Chest: Symmetrical Cardiovascular: Rhythm Regular, No Murmur Respiratory: Normal Breath Sounds, No Rales, No Rhonchi, No Wheezing Gastrointestinal/Abdominal: Soft, No Tenderness Extremity: No Pedal Edema Extremity: Bilateral: Atraumatic, Normal Color And Temperature, Normal ROM Neurological/Psych: Oriented x3, Normal Speech Gait: Steady ED Course And Treatment - Laboratory Results Result Diagrams: 07/09/18 17:39 07/09/18 17:39 Lab Interpretation: No Acute Changes O2 Sat by Pulse Oximetry: 100 (RA) Pulse Ox Interpretation: Normal Reevaluation Time: 18:17 Reassessment Condition: Improved (Symptoms resolved after Zofran po) Medical Decision Making Medical Decision Making: Plan: --Labs --Zofran --Urinalysis Disposition Counseled Patient/Family Regarding: Studies Performed, Diagnosis, Need For Followup, Rx Given - Disposition Referrals: Samara Love MD [Staff Provider] - Disposition: HOME/ ROUTINE Disposition Time: 18:17 Condition: IMPROVED Prescriptions: Ondansetron ODT [Zofran ODT] 1 odt PO QID PRN #10 odt PRN Reason: Nausea/Vomiting Instructions: Nausea and Vomiting, Adult (DC) Forms: [employer] (Maltese) - Clinical Impression Clinical Impression: Nausea alone - Scribe Statement The provider has reviewed the documentation as recorded by the Shreri Holm Provider Attestation: All medical record entries made by the Peteribe were at my direction and personally dictated by me. I have reviewed the chart and agree that the record accurately reflects my personal performance of the history, physical exam, medical decision making, and the department course for this patient. I have also personally directed, reviewed, and agree with the discharge instructions and disposition.
[2018-07-09 17:54] LABS: ALB/GLOB RATIO 1.1 (1.0-2.1); ALBUMIN 3.9 g/dL (3.5-5.0); ALT/SGPT 21 U/L (9-52); AST/SGOT 16 U/L (14-36); BLOOD UREA NITROGEN 9 mg/dL (7-17); GFR NON-AFRICAN AMERICAN > 60; LIPASE 138 U/L (23-300)
[2018-07-09 18:33] LABS: SQUAMOUS EPITHIAL 2 /hpf (0-5); URINE BILIRUBIN NEGATIVE (NEGATIVE); URINE BLOOD 1+ (NEGATIVE); URINE CLARITY Clear (Clear); URINE COLOR Straw (YELLOW); URINE GLUCOSE (UA) NORMAL (Normal); URINE LEUKOCYTE ESTERASE NEG Leu/uL (Negative); URINE PROTEIN NEGATIVE (NEGATIVE); URINE UROBILINOGEN NORMAL mg/dL (0.2-1.0)
[2018-07-09 18:54] VITALS: BP 116/76; PULSE 82; RESP 18; TEMP 98.5
== END 2018-07-09 18:54 | disposition home or self-care (01) ==
LOC: C.ER 16:27
DX: R11.0 Nausea (principal)

== ENCOUNTER 2018-07-25 00:12 | Emergency (ER) | payer MEDICARE ==
[2018-07-25 00:13] VITALS: BMI 37.0
[2018-07-25 00:21] VITALS: PULSE 97; RESP 18; TEMP 98; O2SAT 100
--- NOTE | 2018-07-25 01:00 | C.PDOC ---
History Of Present Illness 27 y/o female with hx migraines and psychiatric disorder c/o migraine headache (her typical headache) not better after 2 fioricets, and she has nausea. pt has never seen neurology for these headaches. sts she 'doesn't have time because she is always 'lethargic'. pt comes to ed frequently for headaches. no fever or stiff neck. Time Seen by Provider: 07/25/18 00:31 Chief Complaint (Nursing): Headache History Per: Patient History/Exam Limitations: no limitations Onset/Duration Of Symptoms: Days (1) Current Symptoms Are (Timing): Still Present Severity: Moderate Quality: "Pain" Preceeding Symptoms: Known Migraine Symptoms Associated Symptoms: Photophobia, Nausea. denies: Vomiting, Extremity Weakness Additional History Per: Patient Past Medical History Reviewed: Historical Data, Nursing Documentation, Vital Signs Vital Signs: Last Vital Signs Temp 98 F 07/25/18 00:18 Pulse 97 H 07/25/18 00:18 Resp 18 07/25/18 00:18 BP Pulse Ox 100 07/25/18 00:18 - Medical History PMH: Migraine, Personality Disorder, Schizophrenia Denies: HIV, HTN, Chronic Kidney Disease, Sexually Transmitted Disease Surgical History: No Surg Hx Family History: States: Unknown Family Hx - Social History Hx Tobacco Use: No Hx Alcohol Use: Yes Hx Substance Use: No - Immunization History Hx Tetanus Toxoid Vaccination: No Hx Influenza Vaccination: No Hx Pneumococcal Vaccination: No Review Of Systems Constitutional: Negative for: Fever, Chills Cardiovascular: Negative for: Chest Pain Respiratory: Negative for: Cough Gastrointestinal: Positive for: Nausea. Negative for: Vomiting, Abdominal Pain Musculoskeletal: Negative for: Neck Pain Skin: Negative for: Rash Neurological: Positive for: Headache. Negative for: Weakness, Numbness Physical Exam - Physical Exam Appears: Non-toxic, No Acute Distress Skin: Warm, Dry Head: Atraumatic, Normacephalic Eye(s): bilateral: Normal Inspection Nose: No Discharge Oral Mucosa: Moist Neck: Normal ROM, Supple (no meningeal signs) Chest: Symmetrical Cardiovascular: Rhythm Regular, No Murmur Respiratory: No Decreased Breath Sounds Neurological/Psych: Oriented x3, Normal Speech, Normal Cognition, Normal Motor, Normal Sensation Gait: Steady ED Course And Treatment O2 Sat by Pulse Oximetry: 100 (ON RA) Pulse Ox Interpretation: Normal Medical Decision Making Medical Decision Making: pt with typical migraine with nausea, not better after fioricet. given zofran odt for nausea. pt requests something to drink. pt had one orange juice with no vomiting. declines motrin, declines toradol. pt advised to follow up with neurology and keep headache diary, sts she is unable to do so due to 'lethargy'. Disposition Counseled Patient/Family Regarding: Diagnosis, Need For Followup - Disposition Referrals: Lane Enriquez MD [Staff Provider] - Disposition: HOME/ ROUTINE Disposition Time: 01:37 Condition: IMPROVED Additional Instructions: Follow up with pmd and in neurology. Keep headache diary. Instructions: Migraine Headache (DC) Forms: [employer] (Malay), General Discharge Instructions - Clinical Impression Clinical Impression: Migraine headache - PA / EVALUATION ENGINEER / Resident Statement MD/DO has reviewed & agrees with the documentation as recorded. - Scribe Statement The provider has reviewed the documentation as recorded by the Scribe Jose Suresh All medical record entries made by the Scribe were at my direction and personally dictated by me. I have reviewed the chart and agree that the record accurately reflects my personal performance of the history, physical exam, medical decision making, and the department course for this patient. I have also personally directed, reviewed, and agree with the discharge instructions and disposition.
== END 2018-07-25 01:27 | disposition home or self-care (01) ==
LOC: C.ER 00:12
DX: G43.909 Migraine, unspecified, not intractable, without status migrainosus (principal); F20.9 Schizophrenia, unspecified

== ENCOUNTER 2018-08-13 20:57 | Emergency (ER) | payer MEDICARE | END 2018-08-13 22:08 | disposition home or self-care (01) | LOC: C.ER 20:57 ==

== ENCOUNTER 2018-08-18 09:13 | Emergency (ER) | payer MEDICARE ==
[2018-08-18 09:13] VITALS: BMI 37.0
[2018-08-18 09:25] VITALS: RESP 20; TEMP 98.6
--- NOTE | 2018-08-18 10:44 | C.PDOC ---
History Of Present Illness 27yo female, well known to ER, comes reporting her "typical migraine" headache. Patient states the pain is not the worst in her life and was not sudden onset/thunderclap headache. She states she has medications at home but did not want to take it. She otherwise denies any fever, neck pain, vision changes, vomiting, weakness or numbness; patient denies any trauma or injuries to her head as well. No additional complaints. Time Seen by Provider: 08/18/18 09:26 Chief Complaint (Nursing): Headache History Per: Patient History/Exam Limitations: no limitations Quality: "Pain" Associated Symptoms: denies: Photophobia, Blurred Vision, Nausea, Vomiting, Extremity Weakness Past Medical History Reviewed: Historical Data, Nursing Documentation, Vital Signs Vital Signs: Last Vital Signs Temp 98.6 F 08/18/18 09:23 Pulse 86 08/18/18 09:23 Resp 20 08/18/18 09:23 BP 113/78 08/18/18 09:23 Pulse Ox 98 08/18/18 09:23 - Medical History PMH: Migraine, Personality Disorder, Schizophrenia (non-compliant) Denies: HIV, HTN, Chronic Kidney Disease, Sexually Transmitted Disease Surgical History: No Surg Hx Family History: States: No Known Family Hx - Social History Hx Tobacco Use: No Hx Alcohol Use: Yes Hx Substance Use: No - Immunization History Hx Tetanus Toxoid Vaccination: No Hx Influenza Vaccination: No Hx Pneumococcal Vaccination: No Review Of Systems Except As Marked, All Systems Reviewed And Found Negative. Constitutional: Negative for: Fever, Chills Eyes: Negative for: Vision Change Gastrointestinal: Negative for: Vomiting Musculoskeletal: Negative for: Neck Pain Neurological: Positive for: Headache. Negative for: Weakness, Numbness Physical Exam - Physical Exam Appears: Non-toxic Skin: Normal Color, Warm, No Rash Head: Atraumatic, Normacephalic, No Tenderness Eye(s): bilateral: Normal Inspection, PERRL, EOMI Ear(s): Bilateral: Normal Oral Mucosa: Moist Throat: No Erythema, No Exudate Neck: Normal ROM, Supple Chest: Symmetrical, No Tenderness Cardiovascular: Rhythm Regular, No Friction Rub, No Murmur Respiratory: Normal Breath Sounds, No Stridor, No Wheezing Gastrointestinal/Abdominal: Normal Exam Back: Normal Inspection Extremity: Normal ROM, No Pedal Edema Neurological/Psych: Oriented x3, Normal Speech, Normal Cognition, Normal Cranial Nerves, Normal Motor, Normal Sensation, Other (flat affect) ED Course And Treatment O2 Sat by Pulse Oximetry: 98 (RA) Pulse Ox Interpretation: Normal Medical Decision Making Medical Decision Making: Patient refuses medication at this time. Patient requesting a sandwich and a drink. [id number] On reassessment prior to discharge, patient states she is nauseous. Zofran 4mg PO ordered Disposition - Disposition Referrals: Samara Love MD [Staff Provider] - Disposition: HOME/ ROUTINE Disposition Time: 10:44 Condition: STABLE Additional Instructions: Follow up with the medical doctor within 1-2 days, return if worsened. Instructions: Headache, Adult (DC) Forms: [employer] (French) - Clinical Impression Clinical Impression: Migraine - PA / AUTO SERVICE INSTRUCTOR / Resident Statement MD/DO has reviewed & agrees with the documentation as recorded. - Scribe Statement The provider has reviewed the documentation as recorded by the Sherri Alcantara Provider Attestation: All medical record entries made by the Sherri were at my direction and personally dictated by me. I have reviewed the chart and agree that the record accurately reflects my personal performance of the history, physical exam, medical decision making, and the department course for this patient. I have also personally directed, reviewed, and agree with the discharge instructions and disposition.
[2018-08-18 11:04] VITALS: BP 118/84; PULSE 73
[2018-08-23 14:25] VITALS: O2SAT 98
== END 2018-08-18 11:04 | disposition home or self-care (01) ==
LOC: C.ER 09:13
DX: G43.909 Migraine, unspecified, not intractable, without status migrainosus (principal)

== ENCOUNTER 2018-08-26 22:46 | Inpatient (IN) | payer MEDICARE ==
[2018-08-26 22:46] VITALS: BMI 37.0
[2018-08-26] MEDS ORDERED: Sodium Chloride 0.9% 1,000 ML IV ONE (23:13)
[2018-08-26] MEDS ORDERED: Metoprolol 1 mg/ml Inj IVP STA (23:13)
[2018-08-26] MEDS ORDERED: Metoprolol 1 mg/ml Inj ONE (23:47)
[2018-08-26] MEDS ORDERED: Sodium Chloride 0.9% 1,000 ML ONE (23:47)
[2018-08-26 23:59] LABS: BASO % 0.1 % (0.0-2.0); HEMOGLOBIN 10.5 g/dL (11.0-16.0); LYMPH # 1.8 K/uL (1.0-4.3); LYMPH % 8.8 % (20.0-40.0); MEAN CELL VOLUME 79.3 fL (81.0-99.0); MEAN CORPUSCULAR HEMOGLOBIN 25.2 pg (27.0-31.0); MEAN CORPUSCULAR HGB CONC 31.8 g/dL (33.0-37.0); MEAN PLATELET VOLUME 7.6 fL (7.2-11.7); MONO # 0.6 K/uL (0.0-0.8); MONO % 3.1 % (0.0-10.0); NEUT # 17.7 K/uL (1.8-7.0); PLATELET COUNT 310 K/uL (130-400); RBC 4.15 Mil/uL (3.80-5.20); RED CELL DISTRIBUTION WIDTH 15.7 % (11.5-14.5); WHITE BLOOD COUNT 20.2 K/uL (4.8-10.8)
[2018-08-27] LABS: HCG,QUALITATIVE URINE NEGATIVE (NEGATIVE)
[2018-08-27 00:01] LABS: SQUAMOUS EPITHIAL 1 /hpf (0-5); URINE BILIRUBIN NEGATIVE (NEGATIVE); URINE BLOOD NEGATIVE (NEGATIVE); URINE CLARITY Clear (Clear); URINE COLOR Straw (YELLOW); URINE GLUCOSE (UA) NORMAL (Normal); URINE LEUKOCYTE ESTERASE NEG Leu/uL (Negative); URINE PROTEIN NEGATIVE (NEGATIVE); URINE UROBILINOGEN NORMAL mg/dL (0.2-1.0)
[2018-08-27 00:13] LABS: ACETAMINOPHEN < 10.0 ug/mL (10.0-30.0); ALB/GLOB RATIO 1.2 (1.0-2.1); ALBUMIN 4.4 g/dL (3.5-5.0); ALT/SGPT 16 U/L (9-52); AST/SGOT 19 U/L (14-36); BLOOD UREA NITROGEN 14 mg/dL (7-17); CALCIUM 9.5 mg/dl (8.6-10.4); GFR NON-AFRICAN AMERICAN > 60; SALICYLATE < 1.0 {null, mg/dL 1}
[2018-08-27 00:15] LABS: BARBITURATES, UR POSITIVE (NEGATIVE); BENZODIAZEPINES, UR NEGATIVE (NEGATIVE); OPIATES, UR NEGATIVE (NEGATIVE); PHENCYCLIDINE, UR NEGATIVE (NEGATIVE)
--- NOTE | 2018-08-27 00:42 | C.PDOC ---
History Of Present Illness 27 year old female is brought to the ED for evaluation of possible overdose with handful or NSAIDs and with questionable sleeping pills. Patient with many prior evaluations, well known paranoid schizophrenic. Patient denies HI, hallu cinations, injury, fall, trauma. Time Seen by Provider: 08/26/18 23:11 Chief Complaint (Nursing): Substance Abuse History Per: Patient, Family History/Exam Limitations: intoxication Onset/Duration Of Symptoms: Hrs Current Symptoms Are (Timing): Still Present Suicide/Self Injury Attempted (Context): Ingestion Modifying Factor(s): Narcotics Associated Symptoms: Depression, Suicidal Thoughts, Suicidal Plan Recent travel outside of the [place]: No Additional History Per: Patient, Family Past Medical History Reviewed: Historical Data, Nursing Documentation, Vital Signs Vital Signs: Last Vital Signs Temp 98.3 F 08/26/18 23:01 Pulse 164 H 08/26/18 23:01 Resp 28 H 08/26/18 23:01 BP 142/79 08/26/18 23:48 Pulse Ox 100 08/26/18 23:01 - Medical History PMH: Migraine, Personality Disorder, Schizophrenia (non-compliant) Denies: HIV, HTN, Chronic Kidney Disease, Sexually Transmitted Disease Surgical History: No Surg Hx Family History: States: Unknown Family Hx - Social History Hx Tobacco Use: No Hx Alcohol Use: Yes Hx Substance Use: No - Immunization History Hx Tetanus Toxoid Vaccination: No Hx Influenza Vaccination: No Hx Pneumococcal Vaccination: No Review Of Systems Constitutional: Negative for: Fever, Chills Eyes: Negative for: Vision Change Cardiovascular: Negative for: Chest Pain Respiratory: Negative for: Shortness of Breath Gastrointestinal: Negative for: Nausea, Vomiting, Abdominal Pain Skin: Negative for: Rash Neurological: Negative for: Weakness, Numbness Psych: Positive for: Depression, Suicidal ideation Physical Exam - Physical Exam Appears: Non-toxic, No Acute Distress, Other (morbidly obese black female ) Skin: Normal Color, Warm, Dry Head: Atraumatic, Normacephalic Eye(s): bilateral: Normal Inspection, PERRL, EOMI Oral Mucosa: Moist Neck: Normal ROM, Supple Chest: Symmetrical Cardiovascular: Rhythm Regular Respiratory: Normal Breath Sounds, No Rales, No Rhonchi, No Wheezing Gastrointestinal/Abdominal: Soft, No Tenderness, No Guarding, No Rebound Extremity: Normal ROM, No Tenderness, No Swelling Neurological/Psych: Oriented x3, Normal Speech, Normal Cognition Gait: Steady ED Course And Treatment - Laboratory Results Result Diagrams: 08/26/18 23:55 08/26/18 23:55 Lab Results: Total Bilirubin 0.3 mg/dL (0.2-1.3) 08/26/18 23:55 AST 19 U/L (14-36) 08/26/18 23:55 ALT 16 U/L (9-52) 08/26/18 23:55 Alkaline Phosphatase 160 U/L (38-126) H D 08/26/18 23:55 Total Protein 8.0 g/dL (6.3-8.3) 08/26/18 23:55 Albumin 4.4 g/dL (3.5-5.0) 08/26/18 23:55 Globulin 3.6 gm/dL (2.2-3.9) 08/26/18 23:55 Albumin/Globulin Ratio 1.2 (1.0-2.1) 08/26/18 23:55 Urine Color Straw (YELLOW) 08/26/18 23:55 Urine Clarity Clear (Clear) 08/26/18 23:55 Urine pH 5.0 (5.0-8.0) 08/26/18 23:55 Ur Specific [place] 1.008 (1.003-1.030) 08/26/18 23:55 Urine Protein Negative mg/dL (NEGATIVE) 08/26/18 23:55 Urine Glucose (UA) Normal mg/dL (Normal) 08/26/18 23:55 Urine Ketones Negative mg/dL (NEGATIVE) 08/26/18 23:55 Urine Blood Negative (NEGATIVE) 08/26/18 23:55 Urine Nitrate Negative (NEGATIVE) 08/26/18 23:55 Urine Bilirubin Negative (NEGATIVE) 08/26/18 23:55 Urine Urobilinogen Normal mg/dL (0.2-1.0) 08/26/18 23:55 Ur Leukocyte Esterase Neg Steph/uL (Negative) 08/26/18 23:55 Urine RBC (Auto) < 1 /hpf (0-3) 08/26/18 23:55 Ur Squamous Epith Cells 1 /hpf (0-5) 08/26/18 23:55 Urine HCG, Qual Negative (NEGATIVE) 08/26/18 23:55 Urine HCG, Qual Negative (NEGATIVE) 08/26/18 23:55 Lab Interpretation: Abnormal (+ leukocytosis, no renal insult, mild elev glu) ECG: Interpreted By Me ECG Rhythm: Sinus Tachycardia ECG Interpretation: Abnormal Rate From EC (BPM) O2 Sat by Pulse Oximetry: 100 (On RA) Pulse Ox Interpretation: Normal - Radiology CXR: Interpreted by Me CXR Interpretation: Yes: No Acute Disease Progress Note: lopressor 5 IV, protonix 40 IV, NS bolus Reevaluation Time: 00:45 Reassessment Condition: Unchanged (remains calm, cooperative, flat affect, nor mal pupils) - Physician Consult Information Outcome Of Conversation: 0045: d/w Dr. Jason Gomez- PMD- ok to admit. Medical Decision Making Medical Decision Making: Plan: * EKG * Labs * Lopressor 5 mg IVP * Protonix 40 mg IVP * IV fluids * UA intentional OD of NSAIDS and ? sleep med h/o paranoid schizophrenia tox + barbiturates, ? Fioricet for chronic headaches stable eval Leukocytosis of ? sig repeat CBC in AM defer ICU eval for stable pt and neg tox besides prescribed meds Disposition Doctor Will See Patient In The: Hospital Counseled Patient/Family Regarding: Studies Performed, Diagnosis - Disposition Disposition: HOSPITALIZED Disposition Time: 00:47 Condition: GOOD Forms: [facility] (Nigerian) - Clinical Impression Clinical Impression: Overdose of nonsteroidal anti-inflammatory drug (NSAID), Paranoid schizophrenia - Scribe Statement The provider has reviewed the documentation as recorded by the Scribe Jose Suresh All medical record entries made by the Scribe were at my direction and personally dictated by me. I have reviewed the chart and agree that the record accurately reflects my personal performance of the history, physical exam, medical decision making, and the department course for this patient. I have also personally directed, reviewed, and agree with the discharge instructions and disposition.
[2018-08-27 01:21] LABS: LYMPHOCYTE 7 % (20-40); MONOCYTE 4 % (0-10); NEUTROPHIL 89 % (50-75); PLATELET ESTIMATE NORMAL (NORMAL); TOTAL CELLS COUNTED 100
[2018-08-27] MEDS ORDERED: Potassium Chl 40 mEq in D5-1/2 1,000 ML IV SCH (08:30)
--- NOTE | 2018-08-27 09:09 | RAD ---
Date of service: 08/26/2018 HISTORY: Overdosed COMPARISON: Portable chest 05/21/2018. FINDINGS: LUNGS: No active pulmonary disease. PLEURA: No significant pleural effusion identified, no pneumothorax apparent. CARDIOVASCULAR: No aortic atherosclerotic calcification present. Normal cardiac size. No pulmonary vascular congestion. OSSEOUS STRUCTURES: No significant abnormalities. VISUALIZED UPPER ABDOMEN: Normal. OTHER FINDINGS: None. IMPRESSION: No interval acute cardiopulmonary disease appreciated.
[2018-08-27] MEDS: Pantoprazole 40 mg EC Tab PO SCH (10:31)
[2018-08-27] MEDS: Enoxaparin 40 mg Syringe SC SCH (10:32)
--- NOTE | 2018-08-27 15:41 | CP.PCM.HP ---
Past Patient History - Infectious Disease Hx of Infectious Diseases: None - Past Medical History & Family History Past Medical History?: Yes - Past Social History Smoking Status: Never Smoked - CARDIAC Hx Hypertension: No - PULMONARY Hx Respiratory Disorders: No - NEUROLOGICAL Hx Migraine: Yes - HEENT Hx HEENT Problems: No - RENAL Hx Chronic Kidney Disease: No - ENDOCRINE/METABOLIC Hx Endocrine Disorders: No - HEMATOLOGICAL/ONCOLOGICAL Hx Human Immunodeficiency Virus (HIV): No - INTEGUMENTARY Hx Dermatological Problems: No - MUSCULOSKELETAL/RHEUMATOLOGICAL Hx Falls: No - GASTROINTESTINAL Hx Gastrointestinal Disorders: No - GENITOURINARY/GYNECOLOGICAL Hx Sexually Transmitted Disorders: No - PSYCHIATRIC Hx Substance Use: Yes - SURGICAL HISTORY Hx Surgeries: No - ANESTHESIA Hx Anesthesia: No Meds Allergies/Adverse Reactions: Allergies Allergy/AdvReac Type Severity Reaction Status Date / Time No Known Allergies Allergy Verified 08/26/18 23:06 Physical Exam - Constitutional Appears: Well - Head Exam Head Exam: ATRAUMATIC, NORMAL INSPECTION, NORMOCEPHALIC - Eye Exam Eye Exam: EOMI, Normal appearance, PERRL Pupil Exam: NORMAL ACCOMODATION, PERRL - ENT Exam ENT Exam: Mucous Membranes Moist, Normal Exam - Neck Exam Neck exam: Positive for: Normal Inspection - Respiratory Exam Respiratory Exam: Decreased Breath Sounds - Cardiovascular Exam Cardiovascular Exam: REGULAR RHYTHM, +S1, +S2 - GI/Abdominal Exam GI & Abdominal Exam: Diminished Bowel Sounds, Soft - Rectal Exam Rectal Exam: Deferred Results - Vital Signs Recent Vital Signs: Last Vital Signs Temp 98.5 F 08/27/18 07:30 Pulse 101 H 08/27/18 15:20 Resp 20 08/27/18 07:30 BP 119/82 08/27/18 07:30 Pulse Ox 97 08/27/18 07:30 - Labs Result Diagrams: 08/26/18 23:55 08/26/18 23:55 Labs: Laboratory Results - last 24 hr 08/26/18 08/26/18 08/26/18 23:55 23:55 23:55 WBC 20.2 H D RBC 4.15 Hgb 10.5 L Hct 32.9 L MCV 79.3 L MCH 25.2 L MCHC 31.8 L RDW 15.7 H Plt Count 310 MPV 7.6 Neut % (Auto) 88.0 H Lymph % (Auto) 8.8 L [place] % (Auto) 3.1 Eos % (Auto) 0.0 Baso % (Auto) 0.1 Neut # (Auto) 17.7 H Lymph # (Auto) 1.8 [place] # (Auto) 0.6 Eos # (Auto) 0.0 Baso # (Auto) 0.0 Neutrophils % (Manual) 89 H Lymphocytes % (Manual) 7 L Monocytes % (Manual) 4 Platelet Estimate Normal Sodium 137 Potassium 3.4 L Chloride 104 Carbon Dioxide 21 L Anion Gap 15 BUN 14 Creatinine 0.6 L Est GFR ( Amer) > 60 Est GFR (Non-Af Amer) > 60 Random Glucose 160 H D Calcium 9.5 Magnesium 2.0 Total Bilirubin 0.3 AST 19 ALT 16 Alkaline Phosphatase 160 H D Total Protein 8.0 Albumin 4.4 Globulin 3.6 Albumin/Globulin Ratio 1.2 Urine Color Straw Urine Clarity Clear Urine pH 5.0 Ur Specific [place] 1.008 Urine Protein Negative Urine Glucose (UA) Normal Urine Ketones Negative Urine Blood Negative Urine Nitrate Negative Urine Bilirubin Negative Urine Urobilinogen Normal Ur Leukocyte Esterase Neg Urine RBC (Auto) < 1 Ur Squamous Epith Cells 1 Urine HCG, Qual Negative Salicylates Urine Opiates Screen Urine Methadone Screen Acetaminophen Ur Barbiturates Screen Ur Phencyclidine Scrn Ur Amphetamines Screen U Benzodiazepines Scrn U Oth Cocaine Metabols U Cannabinoids Screen Alcohol, Quantitative < 10 08/26/18 08/26/18 23:55 23:55 WBC RBC Hgb Hct MCV MCH MCHC RDW Plt Count MPV Neut % (Auto) Lymph % (Auto) [place] % (Auto) Eos % (Auto) Baso % (Auto) Neut # (Auto) Lymph # (Auto) [place] # (Auto) Eos # (Auto) Baso # (Auto) Neutrophils % (Manual) Lymphocytes % (Manual) Monocytes % (Manual) Platelet Estimate Sodium Potassium Chloride Carbon Dioxide Anion Gap BUN Creatinine Est GFR ( Amer) Est GFR (Non-Af Amer) Random Glucose Calcium Magnesium Total Bilirubin AST ALT Alkaline Phosphatase Total Protein Albumin Globulin Albumin/Globulin Ratio Urine Color Urine Clarity Urine pH Ur Specific [place] Urine Protein Urine Glucose (UA) Urine Ketones Urine Blood Urine Nitrate Urine Bilirubin Urine Urobilinogen Ur Leukocyte Esterase Urine RBC (Auto) Ur Squamous Epith Cells Urine HCG, Qual Salicylates < 1.0 Urine Opiates Screen Negative Urine Methadone Screen Negative Acetaminophen < 10.0 L Ur Barbiturates Screen Positive H Ur Phencyclidine Scrn Negative Ur Amphetamines Screen Negative U Benzodiazepines Scrn Negative U Oth Cocaine Metabols Negative U Cannabinoids Screen Negative Alcohol, Quantitative
[2018-08-27] MEDS: Potassium Chloride 10 mEq ER Tab PO SCH (16:00)
[2018-08-28] MEDS: Sodium Chloride 0.9% 1,000 ML IV SCH (06:52)
[2018-08-28] MEDS: Enoxaparin 40 mg Syringe SC SCH (10:44)
[2018-08-28] MEDS: Potassium Chloride 10 mEq ER Tab PO SCH ×2 (10:44→10:54)
[2018-08-28] MEDS: Pantoprazole 40 mg EC Tab PO SCH (10:53)
--- NOTE | 2018-08-28 17:09 | CP.PCM.PN ---
Subjective - Date & Time of Evaluation Date of Evaluation: 08/28/18 Time of Evaluation: 11:15 - Subjective Subjective: clinically same Objective - Vital Signs/Intake and Output Vital Signs (last 24 hours): Temp Pulse Resp BP Pulse Ox 98.7 F 87 18 112/76 97 08/28/18 16:48 08/28/18 16:48 08/28/18 16:48 08/28/18 16:48 08/28/18 16:48 Intake and Output: 08/28/18 08/28/18 06:59 18:59 Intake Total 800 Output Total 400 Balance 400 - Medications Medications: Current Medications Enoxaparin Sodium (Lovenox) 40 mg SC DAILY [facility] Last Admin: 08/28/18 10:44 Dose: Not Given Sodium Chloride (Sodium Chloride 0.9%) 1,000 mls @ 100 mls/hr IV .Q10H [facility] Last Admin: 08/28/18 06:52 Dose: 100 mls/hr Influenza Virus Vaccine (Flucelvax Quad [id number] Syr) 60 mcg IM .ONCE ONE Stop: 08/29/18 10:01 Pantoprazole Sodium (Protonix Ec Tab) 40 mg PO DAILY [facility] Last Admin: 08/28/18 10:53 Dose: 40 mg Pneumococcal Polyvalent Vaccine (Pneumovax 23 Vaccine) 0.5 ml IM .ONCE ONE Stop: 08/29/18 10:01 Potassium Chloride (Klor-Con 10) 10 meq PO BRK [facility] Last Admin: 08/28/18 10:54 Dose: 10 meq - Labs Labs: 08/26/18 23:55 08/26/18 23:55 - Constitutional Appears: Well - Head Exam Head Exam: ATRAUMATIC, NORMAL INSPECTION, NORMOCEPHALIC - Eye Exam Eye Exam: EOMI, Normal appearance, PERRL Pupil Exam: NORMAL ACCOMODATION, PERRL - ENT Exam ENT Exam: Mucous Membranes Moist, Normal Exam - Neck Exam Neck Exam: Full ROM, Normal Inspection. absent: Lymphadenopathy - Respiratory Exam Respiratory Exam: Decreased Breath Sounds - Cardiovascular Exam Cardiovascular Exam: REGULAR RHYTHM, +S1, +S2 - GI/Abdominal Exam GI & Abdominal Exam: Soft, Diminished Bowel Sounds - Rectal Exam Rectal Exam: Deferred
--- NOTE | 2018-08-28 19:10 | PCM.PSYCH ---
Initial Psychiatric Evaluation - Initial Psychiatric Evaluation Type of Admission: Voluntary Legal Status: Capacity Chief Complaint (in patient's own words): I attempted to kill myself by overdose on sleeping pills. History of Present Illness and Precipitating Events: Patient is a 27 years old, single, unemployed, -[place] female with history of schizophrenia, noncompliant with treatment was admitted on the medical floor due to suicidal attempt by overdose on sleeping pills. Psych consult was called to evaluate the patient. Patient reported she was constantly hearing voices telling her different things but no telling her to kill herself. Patient was very upset with the voices and she attempted to kill herself by overdose on handful of sleeping pills but [id number]. Patient was admitted on the psych floor for evaluation. Patient denied any depression, manic or anxiety symptoms. Patient has history of 2 previous psychiatric admissions in the remote past. This was patient's first suicidal attempt. Patient denied use of any drugs including alcohol, cocaine, cannabis and heroin. Patient denied smoking cigarettes. Patient was born in [place] has high school graduation. Patient is not working. Before she was driving "but stopped driving because of auditory hallucinations. Patient is getting Social Security disability. Patient is never and has no children. Her height is 5 feet 5 inches and weight is 200 pounds. Current Medications: Active Medications Generic Name Dose Route Start Last Admin Trade Name Freq PRN Reason Stop Dose Admin Enoxaparin Sodium 40 mg 08/27/18 10:00 08/28/18 10:44 Lovenox SC Not Given DAILY [facility] Sodium Chloride 1,000 mls @ 100 mls/hr 08/27/18 08:30 08/28/18 06:52 Sodium Chloride 0.9% IV 100 mls/hr .Q10H [facility] Administration Influenza Virus Vaccine 60 mcg 08/29/18 10:00 Flucelvax Quad [id number] Syr IM 08/29/18 10:01 .ONCE ONE Pantoprazole Sodium 40 mg 08/27/18 10:00 08/28/18 10:53 Protonix Ec Tab PO 40 mg DAILY [facility] Administration Pneumococcal Polyvalent Vaccine 0.5 ml 08/29/18 10:00 Pneumovax 23 Vaccine IM 08/29/18 10:01 .ONCE ONE Potassium Chloride 10 meq 08/27/18 15:00 08/28/18 10:54 Klor-Con 10 PO 10 meq BRK [facility] Administration Past Psychiatric History - Past Psychiatric History Previous Treatment History: Intensive Outpatient History of Abuse: None reported History of ETOH/Drug Use: See HPI History of Family Illness: None reported Pertinent Medical Hx (Current Medical&Sleep Prob, Allergies): Allergies Allergy/AdvReac Type Severity Reaction Status Date / Time No Known Allergies Allergy Verified 08/26/18 23:06 No Known Home Med 08/26/18 Review of Systems - Psychiatric Psychiatric: As Per HPI, Anxiety Mental Status Examination - Personal Presentation Personal Presentation: Looks stated age - Affect Affect: Depressed - Motor Activity Motor Activity: Calm - Reliability in Providing Information Reliability in Providing Information: Fair - Speech Speech: Organized - Mood Mood: Neutral - Formal Thought Process Formal Thought Process: No Impairment - Hallucinations/Delusions Hallucinations: Other (None reported) Delusions: Other - Obsessions/Compulsions Obsessions: None Compulsions: None - Cognitive Functions Orientation: Person, Place, Situation, Time Sensorium: Alert Attention/Concentration: Attentive Abstract Thinking: [place] Estimate of Intelligence: Average Judgement: Intact, as evidence by: Insight regarding need for hospitalization Memory: Recent intact, as evidence by: Ability to recall events of the day, Remote intact, as evidenced by: Ability to recall historical events - Risk Risk: Diminished functioning - Strength & Assets Inventory Strength & Assets Inventory: Family support, Cooperative - Limitations Limitations: Other (Lives with family) DSM 5 DX - DSM 5 DSM 5 Diagnosis: Schizophrenia - Recommended/Plan of Treatment Treatment Recommendations and Plan of Treatment: Patient education. Supportive therapy. Will start Risperdal 2 mg at bedtime. Offered to transfer the patient to psychiatric floor, patient refused. Recommendation: Follow-up with psychiatrist after discharge from the hospital. Discharge Plan and Discharge Criteria: Patient can be discharged once cleared medically with recommendation to have follow-up with psychiatrist. - Smoking Cessation Smoking Cessation Initiated: No Reason for not providing: Patient does not smoke cigarette
[2018-08-29] MEDS: Potassium Chloride 10 mEq ER Tab PO SCH (08:07)
[2018-08-29] MEDS: Enoxaparin 40 mg Syringe SC SCH (09:44)
[2018-08-29] MEDS: Pantoprazole 40 mg EC Tab PO SCH (09:44)
[2018-08-29] MEDS ORDERED: Pneumococcal 23-Valent Vaccine IM ONE (10:00)
[2018-08-29] MEDS ORDERED: Influenza Vaccine 60 mcg/0.5 mL SYR (4YR UP) IM ONE (10:00)
[2018-08-29] MEDS: Sodium Chloride 0.9% 1,000 ML IV SCH ×2 (11:00→20:30)
[2018-08-29 11:29] LABS: BASO # 0.1 K/uL (0.0-0.2); BASO % 0.9 % (0.0-2.0); EOS # 0.3 K/uL (0.0-0.7); EOS % 1.6 % (0.0-4.0); HEMOGLOBIN 12.1 g/dL (11.0-16.0); LYMPH # 3.3 K/uL (1.0-4.3); MEAN CELL VOLUME 79.1 fL (81.0-99.0); MEAN CORPUSCULAR HEMOGLOBIN 25.3 pg (27.0-31.0); MEAN PLATELET VOLUME 7.8 fL (7.2-11.7); MONO # 0.7 K/uL (0.0-0.8); MONO % 4.1 % (0.0-10.0); NEUT # 12.1 K/uL (1.8-7.0); NEUT % 73.4 % (50.0-75.0); RBC 4.76 Mil/uL (3.80-5.20); RED CELL DISTRIBUTION WIDTH 16.2 % (11.5-14.5); WHITE BLOOD COUNT 16.5 K/uL (4.8-10.8)
[2018-08-29 11:46] LABS: BLOOD UREA NITROGEN 16 mg/dL (7-17); CALCIUM 9.2 mg/dl (8.6-10.4); GFR NON-AFRICAN AMERICAN > 60
--- NOTE | 2018-08-29 13:13 | PCM.PYCHPN ---
Psychiatric Progress Note - Psychiatric Progress Note Patient seen today, length of contact: 16 min Patient Chief Complaint: "I don't want Risperdal" Problems Identified/Issues Discussed: She is seen, chart reviewed and case discussed She is in bed, has odd affect, blunted, slowed TP Denies SI, SP now but aloof and unreliable yet No del/tamayo but again she is a poor historian and is evasive She agreed to try abilify instead of Risperdal - which she is refusing Medication Change: Yes (Abilify started) Medical Record Reviewed: Yes Mental Status Examination - Cognitive Function Orientation: Person, Place, Situation, Time Memory: Impaired Attention: Poor Concentration: Poor Association: WNL Fund of Knowledge: Poor - Mood Mood: Anxious - Affect Affect: Blunted - Speech Speech: Appropriate - Formal Thought Process Formal Thought Process: No Impairment - Suicidal Ideation Suicidal Ideation: No - Homicidal Ideation Homicidal Ideation: No Goal/Treatment Plan - Goal/Treatment Plan Need for Continued Stay: Discharge may exacerbated symptoms, Severe functional impairment Progress Toward Problem(s) and Goals/Treatment Plan: Abilify will be slowly increased DC risperdal prn meds Support and psychoed Consider transferring to psych - call contract writer first
--- NOTE | 2018-08-29 19:08 | RAD ---
Date of service: 08/29/2018 PROCEDURE: Radiographs of the Left Shoulder HISTORY: Patient claimed her left shoulder popped COMPARISON: No prior. FINDINGS: BONES: Normal. No fracture. JOINTS: Normal. Glenohumeral and acromioclavicular joints preserved. No osteoarthritis. SOFT TISSUES: Normal. OTHER FINDINGS: None. IMPRESSION: Normal radiographs of the left shoulder.
--- NOTE | 2018-08-29 19:11 | CP.PCM.PN ---
Subjective - Date & Time of Evaluation Date of Evaluation: 08/29/18 Time of Evaluation: 11:45 - Subjective Subjective: clinically same Objective - Vital Signs/Intake and Output Vital Signs (last 24 hours): Temp Pulse Resp BP Pulse Ox 98.4 F 106 H 20 114/80 97 08/29/18 15:00 08/29/18 15:00 08/29/18 15:00 08/29/18 15:00 08/29/18 15:00 Intake and Output: 08/29/18 08/30/18 18:59 06:59 Intake Total 400 Balance 400 - Medications Medications: Current Medications Aripiprazole (Abilify) 5 mg PO QPM COUNT INCLUDES [facility] Last Admin: 08/29/18 18:13 Dose: 5 mg Enoxaparin Sodium (Lovenox) 40 mg SC DAILY [facility] Last Admin: 08/29/18 09:44 Dose: Not Given Sodium Chloride (Sodium Chloride 0.9%) 1,000 mls @ 100 mls/hr IV .Q10H COUNT INCLUDES [facility] Last Admin: 08/29/18 11:00 Dose: Not Given Ibuprofen (Motrin Tab) 400 mg PO Q8H PRN PRN Reason: Pain Ondansetron HCl (Zofran Tab) 4 mg PO QID COUNT INCLUDES [facility] Last Admin: 08/29/18 18:49 Dose: 4 mg Pantoprazole Sodium (Protonix Ec Tab) 40 mg PO DAILY [facility] Last Admin: 08/29/18 09:44 Dose: 40 mg Potassium Chloride (Klor-Con 10) 10 meq PO BRK COUNT INCLUDES [facility] Last Admin: 08/29/18 08:07 Dose: 10 meq - Labs Labs: 08/29/18 11:20 08/29/18 11:20
[2018-08-30] MEDS: Potassium Chloride 10 mEq ER Tab PO SCH (07:49)
[2018-08-30] MEDS: Enoxaparin 40 mg Syringe SC SCH (09:21)
[2018-08-30] MEDS: Pantoprazole 40 mg EC Tab PO SCH (09:21)
--- NOTE | 2018-08-30 09:31 | CP.PCM.CON ---
History of Present Illness - History of Present Illness History of Present Illness: Orthopedic consultation Dr. Scott 27F complains of left shoulder pain that started yesterday suddenly. She denies any trauma/falls/injury. She says she gets shoulder pain sometimes. RHD. Denies neck pain, denies numbness/tingling. No prior PT or injection. No prior shoulder injury. No other complaints at this time. Review of Systems - Review of Systems All systems: reviewed and no additional remarkable complaints except - Musculoskeletal Musculoskeletal: As Per HPI - Neurological Neurological: As Per HPI - Hematologic/Lymphatic Hematologic: absent: As Per HPI, Easy Bleeding, Easy Bruising, Lymphadenopathy, Other Past Patient History - Infectious Disease Hx of Infectious Diseases: None - Past Medical History & Family History Past Medical History?: Yes Past Family History: Reviewed and not pertinent - Past Social History Smoking Status: Never Smoked - CARDIAC Hx Hypertension: No - PULMONARY Hx Respiratory Disorders: No - NEUROLOGICAL Hx Migraine: Yes - HEENT Hx HEENT Problems: No - RENAL Hx Chronic Kidney Disease: No - ENDOCRINE/METABOLIC Hx Endocrine Disorders: No - HEMATOLOGICAL/ONCOLOGICAL Hx Human Immunodeficiency Virus (HIV): No - INTEGUMENTARY Hx Dermatological Problems: No - MUSCULOSKELETAL/RHEUMATOLOGICAL Hx Falls: No - GASTROINTESTINAL Hx Gastrointestinal Disorders: No - GENITOURINARY/GYNECOLOGICAL Hx Sexually Transmitted Disorders: No - PSYCHIATRIC Hx Substance Use: Yes - SURGICAL HISTORY Hx Surgeries: No - ANESTHESIA Hx Anesthesia: No Meds Allergies/Adverse Reactions: Allergies Allergy/AdvReac Type Severity Reaction Status Date / Time No Known Allergies Allergy Verified 08/26/18 23:06 - Medications Medications: Current Medications Aripiprazole (Abilify) 10 mg PO QPM [facility] Enoxaparin Sodium (Lovenox) 40 mg SC DAILY [facility] Last Admin: 08/30/18 09:21 Dose: Not Given Sodium Chloride (Sodium Chloride 0.9%) 1,000 mls @ 100 mls/hr IV .Q10H [facility] Last Admin: 08/29/18 20:30 Dose: Not Given Ibuprofen (Motrin Tab) 400 mg PO Q8H PRN PRN Reason: Pain Last Admin: 08/30/18 07:50 Dose: 400 mg Ondansetron HCl (Zofran Tab) 4 mg PO QID [facility] Last Admin: 08/30/18 09:21 Dose: 4 mg Pantoprazole Sodium (Protonix Ec Tab) 40 mg PO DAILY [facility] Last Admin: 08/30/18 09:21 Dose: 40 mg Potassium Chloride (Klor-Con 10) 10 meq PO BRK [facility] Last Admin: 08/30/18 07:49 Dose: 10 meq Physical Exam - Constitutional Appears: Well, No Acute Distress Additional comments: Patient sleeping when entering room. Patient sits up when awakened, uses left arm to prop herself up and move to seated position, then adjusts her gown moving left shoulder through painfree full ROM easily. - Neck Exam Neck exam: Positive for: Full Rom, Normal Inspection - Respiratory Exam Respiratory Exam: NORMAL BREATHING PATTERN - Cardiovascular Exam Additional comments: +radial pulse - Expanded Upper Extremities Exam Left Shoulder exam: full ROM, normal inspection (TTP over anterior shoulder, lateral shoulder, upper trapezius, mild spasm noted, negative speeds, 5/5 strength with int/ext rot/empty can, fflex/abd) Elbow exam: full ROM, normal inspection Neuro motor exam: finger 2-5 abduction intact, thumb abduction, thumb IP flexion intact, thumb opposition intact, wrist extension intact Neurosensory exam: median nerve intact, radial nerve intact, ulnar nerve intact Vascular exam: radial pulse - Neurological Exam Neurological exam: Alert, Oriented x3 - Psychiatric Exam Psychiatric exam: Flat Affect - Skin Skin Exam: Dry, Intact, Normal Color, Warm Results - Vital Signs Recent Vital Signs: Last Vital Signs Temp 98.2 F 08/30/18 07:00 Pulse 106 H 08/30/18 07:00 Resp 20 08/30/18 07:00 BP 113/79 08/30/18 07:00 Pulse Ox 98 08/30/18 07:00 - Labs Result Diagrams: 08/29/18 11:20 08/29/18 11:20 Labs: Laboratory Results - last 24 hr 08/29/18 08/29/18 11:20 11:20 WBC 16.5 H RBC 4.76 Hgb 12.1 Hct 37.7 MCV 79.1 L MCH 25.3 L MCHC 32.0 L RDW 16.2 H Plt Count 354 MPV 7.8 Neut % (Auto) 73.4 Lymph % (Auto) 20.0 Castro % (Auto) 4.1 Eos % (Auto) 1.6 Baso % (Auto) 0.9 Neut # (Auto) 12.1 H Lymph # (Auto) 3.3 Castro # (Auto) 0.7 Eos # (Auto) 0.3 Baso # (Auto) 0.1 Sodium 135 Potassium 4.3 Chloride 101 Carbon Dioxide 26 Anion Gap 12 BUN 16 Creatinine 0.6 L Est GFR ( Amer) > 60 Est GFR (Non-Af Amer) > 60 Random Glucose 100 D Calcium 9.2 - Impressions Impression: atient Name / ID : DENISE Paz / [id number] Exam Date : 08/29/2018 17:11:48 ( Approved ) Study Comment : Sex / Age : F / 27Y Creator : Jose Maguire MD Dictator : Jose Maguire MD Drawer In Plain Loom : Hydro Technician : Jose Maguire MD Approver2 : Report Date : 08/29/2018 19:05:12 My Comment : Date of service: 08/29/2018 PROCEDURE: Radiographs of the Left Shoulder HISTORY: Patient claimed her left shoulder popped COMPARISON: No prior. FINDINGS: BONES: Normal. No fracture. JOINTS: Normal. Glenohumeral and acromioclavicular joints preserved. No osteoarthritis. SOFT TISSUES: Normal. OTHER FINDINGS: None. IMPRESSION: Normal radiographs of the left shoulder. Assessment & Plan (1) Left shoulder pain Assessment and Plan: xrays negative for subluxation/dislocation no signs of instability at present minimal pain, no trauma no further imaging indicated at this time recommend OT ice recommend NSAIDs, however will defer to medical team as ?overdose on admission d/w Dr. Scott, agrees with above, patient to f/u as outpatient call for appt, no orthopedic intervention indicated at this time Status: Acute
--- NOTE | 2018-08-30 10:05 | CARD ---
APPROVED REPORT Date of service: 08/26/2018 EKG Measurement Heart [id number] <Conclusion> Sinus tachycardia with short MI prolonged QTc, Nonspecific ST and T wave abnormality Abnormal ECG
--- NOTE | 2018-08-30 11:10 | PCM.PYCHPN ---
Psychiatric Progress Note - Psychiatric Progress Note Patient seen today, length of contact: 17 min Patient Chief Complaint: "I don't know" Problems Identified/Issues Discussed: The pt is seen, chart reviewed, case discussed with staff. The pt is compliant with Abilify and reports no side-effects. Symptoms are improving but needs more time to stabilize. Her mo also called to say she was very worried about her. She will be transferred to . Support given, psycho-education provided. After care discussed. She will attend possibly a day program Medication Change: Yes (Abilify increased) Medical Record Reviewed: Yes Mental Status Examination - Cognitive Function Orientation: Person, Place, Situation, Time Memory: Impaired Attention: Poor Concentration: Poor Association: WNL Fund of Knowledge: Poor - Mood Mood: Anxious - Affect Affect: Blunted - Speech Speech: Appropriate - Formal Thought Process Formal Thought Process: No Impairment - Suicidal Ideation Suicidal Ideation: No - Homicidal Ideation Homicidal Ideation: No Goal/Treatment Plan - Goal/Treatment Plan Need for Continued Stay: Discharge may exacerbated symptoms, Severe functional impairment Progress Toward Problem(s) and Goals/Treatment Plan: Abilify will be slowly increased WILFRID samuel prn meds Support and psychoed Transfer to Estimated Date of D/C: 09/02/18
--- NOTE | 2018-08-30 15:00 | PCM.BM ---
<Margarita Multani - Last Filed: 08/30/18 14:58> Treatment Plan Problems - Problems identified on initial assessmt Suicidal Ideation Date Initiated: 08/30/18 Time Initiated: 14:58 Assessment reference: NA Status: Active Ineffective Coping Date Initiated: 08/30/18 Time Initiated: 14:59 Assessment reference: NA Status: Active Altered Thought process Date Initiated: 08/30/18 Time Initiated: 14:59 Assessment reference: NA Status: Active Treatment assets and liabiliti Patient Assests: adapts well, cooperative, educated, ADL independent, physically healthy, negotiates basic needs, cognitively intact Patient Liabilities: live alone (Lives with parents) - Milieu Protocol Maintain good personal hygiene: daily Encourage regular showers, daily Remind patient to perform daily oral care, daily Assist patient to perform ADL's (Self), other Assist patient to perform ADL's Conduct patient checks and document Observation sheet: Q15 minutes (Safety ) Maintain personal safety: every shift Educate patient to report safety concerns to staff, every shift Monitor environment for contraband/sharps Medication safety: Monitor for expected outcome, potential side effects: every shift, Assess barriers to learning: every shift, Assess readiness for medication education: every shift Milieu Narrative: Abilify will be slowly increased DC risperdal prn meds Support and psychoed Transfer to 5E Discharge/Continuing Care - Treatment Team Participation Patient/Family/SO Statement: Abilify will be slowly increased DC risperdal prn meds Support and psychoed Transfer to 5E <Elizabeth Koo - Last Filed: 08/30/18 19:25> - Diagnosis (1) Paranoid schizophrenia Status: Acute Interventions: 08/30/18 19:25 * Assess/adjust medications daily and /or as needed * Discuss risks, benefits, sided effects and alternatives of medications * See patient on an individual basis 7x/week to assess level of delusional thoughts/ideation *
[2018-08-31] MEDS: Pantoprazole 40 mg EC Tab PO SCH (10:34)
[2018-08-31] MEDS: Potassium Chloride 10 mEq ER Tab PO SCH (10:37)
--- NOTE | 2018-08-31 15:58 | PCM.PYCHPN ---
Psychiatric Progress Note - Psychiatric Progress Note Patient seen today, length of contact: 22 min Patient Chief Complaint: "I am fine, I want to be discharged by Wednesday please!" Problems Identified/Issues Discussed: The pt is seen, chart reviewed, case discussed with staff. Team also saw her She put in a 48 hr as soon as she arrived on the unit but now is willing to rescind but still wants to leave by Wednesday maybe after a family meeting She is irate, internally preoccupied Takes the Abilify but not willing for the injection She claims her mother must help her with finances to pay the rent She has little insight, still sick and at risk Medication Change: Yes (Abilify increased) Medical Record Reviewed: Yes Mental Status Examination - Cognitive Function Orientation: Person, Place, Situation, Time Memory: Impaired Attention: Poor Concentration: Poor Association: WNL Fund of Knowledge: Poor - Mood Mood: Anxious - Affect Affect: Blunted - Speech Speech: Appropriate - Formal Thought Process Formal Thought Process: No Impairment - Suicidal Ideation Suicidal Ideation: No - Homicidal Ideation Homicidal Ideation: No Goal/Treatment Plan - Goal/Treatment Plan Need for Continued Stay: Discharge may exacerbated symptoms, Severe functional impairment Progress Toward Problem(s) and Goals/Treatment Plan: Abilify will be slowly increased DC risperdal prn meds Support and psychoed Transfer to Estimated Date of D/C: 09/02/18
[2018-09-01 06:31] VITALS: O2SAT 98
[2018-09-01] MEDS: Potassium Chloride 10 mEq ER Tab PO SCH (10:01)
[2018-09-01] MEDS: Pantoprazole 40 mg EC Tab PO SCH (10:01)
--- NOTE | 2018-09-01 12:18 | PCM.PYCHPN ---
Psychiatric Progress Note - Psychiatric Progress Note Patient seen today, length of contact: 20 min Patient Chief Complaint: "I am bored" Problems Identified/Issues Discussed: The pt is seen, chart reviewed, case discussed with staff. The pt is compliant with medications and reports no side-effects. Symptoms are improving but needs more time to stabilize. We will hold a family meeting tomorrow-healthcare social worker is to call her mother Patient still has almost no insight and is isolated. However, she rescinded her 48-hour notice and he agreed to stay until tomorrow at least. Pt attends groups and activities selectively. Support given, psycho-education provided. After care discussed. She will be referred to [facility] and [facility] Medication Change: Yes (Abilify increased to 15 mg) Medical Record Reviewed: Yes Mental Status Examination - Cognitive Function Orientation: Person, Place, Situation, Time Memory: Impaired Attention: Poor Concentration: Poor Association: WNL Fund of Knowledge: Poor - Mood Mood: Anxious - Affect Affect: Blunted - Speech Speech: Appropriate - Formal Thought Process Formal Thought Process: No Impairment - Suicidal Ideation Suicidal Ideation: No - Homicidal Ideation Homicidal Ideation: No Goal/Treatment Plan - Goal/Treatment Plan Need for Continued Stay: Discharge may exacerbated symptoms, Severe functional impairment Progress Toward Problem(s) and Goals/Treatment Plan: Abilify will be slowly increased DC risperdal prn meds Support and psychoed Transfer to Estimated Date of D/C: 09/02/18
[2018-09-01 15:11] LABS: ALB/GLOB RATIO 1.2 (1.0-2.1); ALBUMIN 4.3 g/dL (3.5-5.0); ALT/SGPT 22 U/L (9-52); AST/SGOT 21 U/L (14-36); BLOOD UREA NITROGEN 12 mg/dL (7-17); CALCIUM 9.3 mg/dl (8.6-10.4); GFR NON-AFRICAN AMERICAN > 60
[2018-09-02] MEDS: Pantoprazole 40 mg EC Tab PO SCH (10:00)
--- NOTE | 2018-09-02 11:56 | PCM.PYCHPN ---
Psychiatric Progress Note - Psychiatric Progress Note Patient seen today, length of contact: 35 min Patient Chief Complaint: "I am OK" Problems Identified/Issues Discussed: The pt is seen twice, chart reviewed, case discussed with staff. The pt's parents later came to a family meeting She got agitated almost immediately during the meeting. She shouted she has no money for rent and that her parents must pay. She also denied overusing her money, even though parents indicated that they had found many unnecessary online shopping stuff as well as lots of food boxes. Plus, she lost her drivers license b/c of unpaid tickets. Mo has the keys bc she would still drive despite no license, and park the car blocking others' entry. They fear her landlord is trying evict her now. Pt, meanwhile, agreed to take the Abilify Maintena shot Risks discussed Support given Medication Change: Yes (Abilify increased to 20 mg) Medical Record Reviewed: Yes Mental Status Examination - Cognitive Function Orientation: Person, Place, Situation, Time Memory: Impaired Attention: Poor Concentration: Poor Association: WNL Fund of Knowledge: Poor - Mood Mood: Anxious - Affect Affect: Blunted - Speech Speech: Appropriate - Formal Thought Process Formal Thought Process: No Impairment - Suicidal Ideation Suicidal Ideation: No - Homicidal Ideation Homicidal Ideation: No Goal/Treatment Plan - Goal/Treatment Plan Need for Continued Stay: Discharge may exacerbated symptoms, Severe functional impairment Progress Toward Problem(s) and Goals/Treatment Plan: Abilify will be slowly increased and given a Maintena shot prn meds Support and psychoed Attend groups ICMS is applied Mother will be her payee Estimated Date of D/C: 09/05/18 If changed, why: She is not well and will also get an Anbilify Mainyt. shot
[2018-09-02] MEDS ORDERED: Ergocalciferol 50,000 Intl Units Cap PO SCH (13:00)
[2018-09-03 06:50] VITALS: RESP 20; TEMP 97.3
[2018-09-03] MEDS: Pantoprazole 40 mg EC Tab PO SCH (09:17)
[2018-09-03] MEDS ORDERED: ABILIFY MAINTENA 400 MG IM ONE (12:00)
[2018-09-03 15:49] VITALS: BP 124/82; PULSE 96
--- NOTE | 2018-09-03 21:22 | PCM.PYCHPN ---
Psychiatric Progress Note - Psychiatric Progress Note Patient seen today, length of contact: 17 min Patient Chief Complaint: "I am OK" Problems Identified/Issues Discussed: The pt is seen twice, chart reviewed, case discussed with staff. The pt's parents later came to a family meeting She got agitated almost immediately during the meeting. She shouted she has no money for rent and that her parents must pay. She also denied overusing her money, even though parents indicated that they had found many unnecessary online shopping stuff as well as lots of food boxes. Plus, she lost her drivers license b/c of unpaid tickets. Mo has the keys bc she would still drive despite no license, and park the car blocking others' entry. They fear her landlord is trying evict her now. Pt, meanwhile, agreed to take the Abilify Maintena shot Risks discussed Support given Medication Change: Yes (Abilify increased to 20 mg) Medical Record Reviewed: Yes Mental Status Examination - Cognitive Function Orientation: Person, Place, Situation, Time Memory: Impaired Attention: Poor Concentration: Poor Association: WNL Fund of Knowledge: Poor - Mood Mood: Anxious - Affect Affect: Blunted - Speech Speech: Appropriate - Formal Thought Process Formal Thought Process: No Impairment - Suicidal Ideation Suicidal Ideation: No - Homicidal Ideation Homicidal Ideation: No Goal/Treatment Plan - Goal/Treatment Plan Need for Continued Stay: Discharge may exacerbated symptoms, Severe functional impairment Progress Toward Problem(s) and Goals/Treatment Plan: Abilify will be slowly increased and given a Maintena shot prn meds Support and psychoed Attend groups ICMS is applied Mother will be her payee Estimated Date of D/C: 09/05/18
[2018-09-04] MEDS: Pantoprazole 40 mg EC Tab PO SCH (09:12)
--- NOTE | 2018-09-04 09:24 | PCM.PYCHDC ---
Mental Status Examination - Mental Status Examination Orientation: Person Discharge Summary - Discharge Note Consultations:: List each consultation separately and include: 1. Reason for request. 2. Findings. 3. Follow-up Summary of Hospital Course include:: 1. Description of specific treatment plan utilized for patients during their course of treatmen. 2. Summarize the time- course for resolution of acute symptoms and/or regressed behaviors. 3. Describe issues identified and worked on during hospitalization. 4. Describe medication utilized. 5. Describe medical problems identified and treated. 6. Reassessment of suicide risk Summary of Hospital Course: She will go to [facility]. Abilify Maintena shot is due on 09/30/2018. Refills are at [facility]. - Diagnosis (1) Paranoid schizophrenia Current Visit: Yes Status: Acute - Final Diagnosis (DSM 5) Condition upon Discharge: GOOD Disposition: HOME/ ROUTINE Follow-up Treatment Plan: Abilify will be slowly increased and given a Maintena shot prn meds Support and psychoed Attend groups ICMS is applied Mother will be her payee Prescriptions/Medication Reconciliation: ARIPiprazole [Abilify] 20 mg PO QPM #30 tab Ergocalciferol [Drisdol 50,000 Intl Units Cap] 1 cap PO Q7D #4 cap hydrOXYzine HCl [Atarax] 50 mg PO DAILY PRN #30 tab PRN Reason: Anxiety
== END 2018-09-04 11:15 | disposition home or self-care (01) | DRG 885 ==
LOC: C.ER 22:46 → C.6T 08-27 00:42 → C.5E 08-30 13:35
PROVIDERS: ADMIT Psychiatry & Neurology Psychiatry; ATTEND Psychiatry & Neurology Psychiatry
DX: F20.0 Paranoid schizophrenia (principal); T39.392A Poisoning by other nonsteroidal anti-inflammatory drugs [NSAID], intentional self-harm, initial encounter; F60.9 Personality disorder, unspecified; E66.01 Morbid (severe) obesity due to excess calories; M25.512 Pain in left shoulder; Z91.14 Patient's other noncompliance with medication regimen; Z91.19 Patient's noncompliance with other medical treatment and regimen; Z71.3 Dietary counseling and surveillance; Y92.9 Unspecified place or not applicable

== ENCOUNTER 2018-09-06 11:35 | Emergency (ER) | payer MEDICARE ==
[2018-09-06 11:44] VITALS: BMI 30.7
[2018-09-06 11:50] VITALS: BP 107/77; PULSE 95; RESP 18; TEMP 98.5; O2SAT 100
--- NOTE | 2018-09-06 12:07 | C.PDOC ---
History Of Present Illness 27 year old female presents to the ED for evaluation of generalized body aches which began last night. Patient states she feels like her muscles are breaking up. She took some Robitussin for her muscle aches. She denies fever, chills, cough, chest pain and shortness of breath. Patient denies any past medical history, psychiatric history or medication use. Time Seen by Provider: 09/06/18 11:54 Chief Complaint (Nursing): Flu-like Symptoms History Per: Patient History/Exam Limitations: no limitations Onset/Duration Of Symptoms: Hrs Current Symptoms Are (Timing): Still Present Location Of Pain: Diffuse Myalgias Associated Symptoms: denies: Fever, Chills Additional History Per: Patient Past Medical History Reviewed: Historical Data, Nursing Documentation, Vital Signs Vital Signs: Last Vital Signs Temp 98.5 F 09/06/18 11:44 Pulse 95 H 09/06/18 11:44 Resp 18 09/06/18 11:44 BP 107/77 09/06/18 11:44 Pulse Ox 100 09/06/18 11:44 - Medical History PMH: Migraine, Personality Disorder, Schizophrenia (non-compliant) Denies: HIV, HTN, Chronic Kidney Disease, Sexually Transmitted Disease Surgical History: No Surg Hx Family History: States: Unknown Family Hx - Social History Hx Tobacco Use: No Hx Alcohol Use: Yes Hx Substance Use: Yes - Immunization History Hx Tetanus Toxoid Vaccination: No Hx Influenza Vaccination: No Hx Pneumococcal Vaccination: No Review Of Systems Constitutional: Negative for: Fever, Chills Respiratory: Negative for: Shortness of Breath Musculoskeletal: Positive for: Other (generalized body aches ) Physical Exam - Physical Exam Appears: Non-toxic, No Acute Distress Skin: Normal Color, Warm, Dry Head: Atraumatic, Normacephalic Eye(s): bilateral: Normal Inspection Ear(s): Bilateral: Normal Nose: Normal, No Discharge Oral Mucosa: Moist Throat: Normal, No Erythema, No Exudate Neck: Supple Chest: Symmetrical, No Deformity, No Tenderness Cardiovascular: Rhythm Regular, No Murmur Respiratory: Normal Breath Sounds, No Rales, No Rhonchi, No Wheezing Gastrointestinal/Abdominal: Soft, No Tenderness, No Guarding, No Rebound Extremity: Normal ROM, Capillary Refill (less than 2 seconds ) Neurological/Psych: Oriented x3, Normal Speech, Normal Cognition ED Course And Treatment O2 Sat by Pulse Oximetry: 100 (on RA) Pulse Ox Interpretation: Normal Medical Decision Making Medical Decision Making: Impression: viral syndrome Plan: * Flexeril PO * Toradol IM * reassess and disposition Progress: Flexeril PO and Toradol IM given. Disposition - Disposition [place] [facility] [place] [facility] [Outside] [facility] [Outside] Disposition: HOME/ ROUTINE Disposition Time: 12:26 Condition: GOOD Additional Instructions: Follow up with your pcp or medicine clinic in a few days and take the medications as directed. Prescriptions: Cyclobenzaprine [Cyclobenzaprine HCl] 10 mg PO Q8 #15 tab Ibuprofen [Motrin] 600 mg PO Q6 #20 tab Instructions: Viral Syndrome (DC) Forms: [facility] (Yoruba) - Clinical Impression Clinical Impression: Viral syndrome, Myalgia - Scribe Statement The provider has reviewed the documentation as recorded by the Scribe (Elizabeth Gomez) Provider Attestation: All medical record entries made by the Scribe were at my direction and personally dictated by me. I have reviewed the chart and agree that the record accurately reflects my personal performance of the history, physical exam, medical decision making, and the department course for this patient. I have also personally directed, reviewed, and agree with the discharge instructions and disposition.
== END 2018-09-06 12:28 | disposition home or self-care (01) ==
LOC: C.ER 11:35
DX: B34.9 Viral infection, unspecified (principal); M79.10 Myalgia, unspecified site; F20.9 Schizophrenia, unspecified
CPT/HCPCS: 96372; 99283; J1885

== ENCOUNTER 2018-09-08 16:55 | Emergency (ER) | payer MEDICARE ==
[2018-09-08 16:56] VITALS: BMI 30.7
== END 2018-09-08 16:56 | disposition left against medical advice (07) ==
LOC: C.ER 16:55
DX: Z02.89 Encounter for other administrative examinations (principal); R52 Pain, unspecified

== ENCOUNTER 2018-09-22 16:47 | Emergency (ER) | payer MEDICARE ==
[2018-09-22 16:59] VITALS: BMI 29.7
[2018-09-22 17:02] VITALS: BP 119/79; PULSE 82; RESP 20; TEMP 98.8; O2SAT 99
--- NOTE | 2018-09-22 17:13 | C.PDOC ---
History Of Present Illness MIGRAINE EXAC TODAY. NO IMPROVE AFTER FIORCET AND TYLENOL. +NAUSEA. NO FEVER. MULT PRIOR ER VISITS, PRIOR ER VISITS FOR [facility] EXAM MILD DIST NONTOXIC HEENT -PHOTOPHOBIA NEURO INTACT NO FOCAL DEF PSYCH CALM COOPERATIVE NO ACUTE PSYCHOSIS Time Seen by Provider: 09/22/18 17:05 Chief Complaint (Nursing): Headache History Per: Patient History/Exam Limitations: no limitations Onset/Duration Of Symptoms: Hrs Current Symptoms Are (Timing): Still Present Severity: Moderate Past Medical History Reviewed: Historical Data, Nursing Documentation, Vital Signs Vital Signs: Last Vital Signs Temp 98.8 F 09/22/18 16:59 Pulse 82 09/22/18 16:59 Resp 20 09/22/18 16:59 BP 119/79 09/22/18 16:59 Pulse Ox 99 09/22/18 16:59 - Medical History PMH: Migraine, Personality Disorder, Schizophrenia (non-compliant) Denies: HIV, HTN, Chronic Kidney Disease, Sexually Transmitted Disease Surgical History: No Surg Hx Family History: States: No Known Family Hx - Social History Hx Tobacco Use: No Hx Alcohol Use: No (pt denies) Hx Substance Use: No (pt denies) - Immunization History Hx Tetanus Toxoid Vaccination: No Hx Influenza Vaccination: No Hx Pneumococcal Vaccination: No Review Of Systems Except As Marked, All Systems Reviewed And Found Negative. Constitutional: Negative for: Fever, Chills Gastrointestinal: Positive for: Nausea. Negative for: Vomiting Neurological: Positive for: Headache Physical Exam - Physical Exam Appears: Non-toxic, Other (mild distress) Skin: Normal Color, Warm, Dry Head: Atraumatic, Normacephalic Eye(s): bilateral: Normal Inspection, Other (no photophobia) Neurological/Psych: Other (neuro: intact, no focal deficits psych: calm,cooperative, no acute psychosis) ED Course And Treatment O2 Sat by Pulse Oximetry: 99 (RA) Pulse Ox Interpretation: Normal Medical Decision Making Medical Decision Making: Plan: --Imitrex SC --Toradol IM Disposition Counseled Patient/Family Regarding: Diagnosis, Need For Followup, Rx Given - Disposition Referrals: YOUR,PMD [Other] Disposition: HOME/ ROUTINE Disposition Time: 18:15 Condition: IMPROVED Prescriptions: Metoclopramide [Reglan] 1 tab PO TID PRN #25 tab PRN Reason: Nausea/Vomiting Instructions: Migraine Headache (DC) Forms: [facility] (Serbian) - Clinical Impression Clinical Impression: Migraine, Nausea alone - Scribe Statement The provider has reviewed the documentation as recorded by the Peteribe Dina Ray Provider Attestation: All medical record entries made by the Scribe were at my direction and personally dictated by me. I have reviewed the chart and agree that the record accurately reflects my personal performance of the history, physical exam, medical decision making, and the department course for this patient. I have also personally directed, reviewed, and agree with the discharge instructions and disposition.
== END 2018-09-22 18:29 | disposition home or self-care (01) ==
LOC: C.ER 16:47
DX: G43.909 Migraine, unspecified, not intractable, without status migrainosus (principal); R11.0 Nausea
CPT/HCPCS: 96372; 99284; J1885; J2765; J3030

== ENCOUNTER 2018-10-06 06:43 | Emergency (ER) | payer MEDICARE | END 2018-10-06 08:40 | disposition home or self-care (01) | LOC: C.ER 06:43 ==

== ENCOUNTER 2018-10-11 12:24 | Emergency (ER) | payer MEDICARE ==
[2018-10-11 12:24] VITALS: BMI 29.7
[2018-10-11 12:38] VITALS: RESP 18; TEMP 98.1; O2SAT 99
[2018-10-11] MEDS ORDERED: Sodium Chloride 0.9% 1,000 ML IV ONE (13:48)
--- NOTE | 2018-10-11 13:51 | C.PDOC ---
History Of Present Illness 28 year old female presents to ED with complaint of migraine headache that began this morning when she woke up. Patient states that she had one episode of vomiting and has been experiencing photophobia. Patient has has multiple visits in the past for similar complains, as well as psychiatric complaints. Patient is ambulatory. She states that she take medication for her migraines, but forget which one it is and says that she ran out recently. She states that her last normal menstrual period was "last month."Patient denies any recent trauma, nausea, fever, chills, and diaphoresis. Time Seen by Provider: 10/11/18 13:41 Chief Complaint (Nursing): Headache History Per: Patient History/Exam Limitations: no limitations Onset/Duration Of Symptoms: Hrs Current Symptoms Are (Timing): Still Present Quality: Aching Associated Symptoms: Photophobia, Vomiting. denies: Blurred Vision, Nausea Past Medical History Reviewed: Historical Data, Nursing Documentation, Vital Signs Vital Signs: Last Vital Signs Temp 98.1 F 10/11/18 12:32 Pulse 83 10/11/18 12:32 Resp 18 10/11/18 12:32 BP 117/81 10/11/18 12:32 Pulse Ox 99 10/11/18 12:32 - Medical History PMH: Migraine, Personality Disorder, Schizophrenia (non-compliant) Denies: HIV, HTN, Chronic Kidney Disease, Sexually Transmitted Disease Surgical History: No Surg Hx Family History: States: Unknown Family Hx - Social History Hx Tobacco Use: No Hx Alcohol Use: No (pt denies) Hx Substance Use: No (pt denies) - Immunization History Hx Tetanus Toxoid Vaccination: No Hx Influenza Vaccination: No Hx Pneumococcal Vaccination: No Review Of Systems Constitutional: Negative for: Fever, Chills, Weakness Eyes: Positive for: Other (photophobia) Gastrointestinal: Positive for: Vomiting. Negative for: Nausea Neurological: Positive for: Headache. Negative for: Weakness, Numbness, Di zziness Physical Exam - Physical Exam Appears: Well, Non-toxic, No Acute Distress Skin: Normal Color, Warm, Dry Head: Atraumatic, Normacephalic Eye(s): bilateral: Normal Inspection, PERRL, EOMI Oral Mucosa: Moist Neck: Normal ROM, Supple Chest: Symmetrical Cardiovascular: Rhythm Regular, No Murmur Respiratory: No Accessory Muscle Use, No Rales, No Rhonchi, No Wheezing Gastrointestinal/Abdominal: Soft, No Tenderness Extremity: Capillary Refill (<2 seconds) Extremity: Bilateral: Atraumatic, Normal Color And Temperature, Normal ROM Neurological/Psych: Oriented x3, Normal Speech, Normal Cognition, Normal Cranial Nerves ED Course And Treatment O2 Sat by Pulse Oximetry: 99 (in RA) Medical Decision Making Medical Decision Making: Impression: 28 year old female presents to ED with complaint of migraine headache that began this morning when she woke up. Plan: IV fluids Toradol Reglan MDM: Migraine headache without neurological symptoms Re-eval: 1620 Symptoms improved with treatment. PT to follow up with primary medical doctor for prescription refills. Return parameters discussed. Disposition - Disposition Disposition: HOME/ ROUTINE Disposition Time: 16:20 Condition: IMPROVED Additional Instructions: Follow up with primary medical doctor as soon as possible for prescription refills. Return to the emergency department if symptoms worsen or if new symptoms develop. Instructions: Acetaminophen, Aspirin, and Caffeine, Migraine Headaches in Adults Forms: [employer] (Korean) Print Language: SALVADOREAN - Clinical Impression Clinical Impression: Migraine headache - Scribe Statement The provider has reviewed the documentation as recorded by the Scribe (Connie Beth) All medical record entries made by the Scribe were at my direction and personally dictated by me. I have reviewed the chart and agree that the record accurately reflects my personal performance of the history, physical exam, medical decision making, and the department course for this patient. I have also personally directed, reviewed, and agree with the discharge instructions and disposition.
[2018-10-11 16:30] VITALS: BP 114/76; PULSE 77
== END 2018-10-11 16:52 | disposition home or self-care (01) ==
LOC: C.ER 12:24
DX: G43.909 Migraine, unspecified, not intractable, without status migrainosus (principal)
CPT/HCPCS: 81025; 96361; 96374; 96375; 99285; J1885; J2765; J7030

== ENCOUNTER 2018-12-19 09:40 | Emergency (ER) | payer MEDICARE ==
[2018-12-19 09:40] VITALS: BMI 29.7
[2018-12-19 09:50] VITALS: BP 114/85; PULSE 90; RESP 16; TEMP 98.1; O2SAT 98
--- NOTE | 2018-12-19 10:23 | C.PDOC ---
History Of Present Illness 28 year old female presents to ED with complaint of migraine headache that started last night. Patient has a PMHX of migraines and psychiatric disorder, seen in ED frequently for headaches. Patient states that she not taken any medication for pain and she ran out of fioricet. She denies nausea, vomiting, fever and neck stiffness. Time Seen by Provider: 12/19/18 10:05 Chief Complaint (Nursing): Headache History Per: Patient History/Exam Limitations: no limitations Onset/Duration Of Symptoms: Days (1) Current Symptoms Are (Timing): Still Present Quality: Aching Preceeding Symptoms: None Associated Symptoms: denies: Photophobia, Blurred Vision, Nausea, Vomiting, Extremity Weakness Past Medical History Reviewed: Historical Data, Nursing Documentation, Vital Signs Vital Signs: Last Vital Signs Temp 98.1 F 12/19/18 09:47 Pulse 90 12/19/18 09:47 Resp 16 12/19/18 09:47 BP 114/85 12/19/18 09:47 Pulse Ox 98 12/19/18 09:47 Primary Care Provider: Samara Love - Medical History PMH: Migraine, Personality Disorder, Schizophrenia (non-compliant) Denies: HIV, HTN, Chronic Kidney Disease, Sexually Transmitted Disease Surgical History: No Surg Hx Family History: States: Unknown Family Hx - Social History Hx Tobacco Use: No Hx Alcohol Use: No (pt denies) Hx Substance Use: No (pt denies) - Immunization History Hx Tetanus Toxoid Vaccination: No Hx Influenza Vaccination: No Hx Pneumococcal Vaccination: No Review Of Systems Constitutional: Negative for: Fever, Chills, Weakness Eyes: Negative for: Pain, Vision Change Gastrointestinal: Negative for: Nausea, Vomiting Musculoskeletal: Negative for: Neck Pain (neck stiffness) Neurological: Positive for: Headache. Negative for: Weakness, Numbness, Dizziness Physical Exam - Physical Exam Appears: Non-toxic, No Acute Distress Skin: Normal Color, Warm, Dry Head: Atraumatic, Normacephalic Eye(s): bilateral: Normal Inspection, PERRL, EOMI Ear(s): Bilateral: Normal Nose: No Discharge Oral Mucosa: Moist Neck: Normal ROM, Supple Chest: Symmetrical, No Deformity Cardiovascular: Rhythm Regular Respiratory: No Decreased Breath Sounds, No Rales, No Rhonchi Gastrointestinal/Abdominal: Bowel Sounds, Soft, No Tenderness Extremity: Normal ROM, No Tenderness, Capillary Refill <2 Sec (<2 seconds), No Swelling Extremity: Bilateral: Atraumatic, Normal Color And Temperature, Normal ROM Pulses: Left Radial: Normal, Right Radial: Normal Neurological/Psych: Oriented x3, Normal Speech, Normal Cognition, Normal Cranial Nerves, No Cerebellar Signs, Normal Motor, Normal Sensation, Other (rapid alternating movements intact) Gait: Steady ED Course And Treatment O2 Sat by Pulse Oximetry: 98 (in RA) Pulse Ox Interpretation: Normal Medical Decision Making Medical Decision Making: Impression:28 year old female presents to ED with complaint of migraine headache that started last night. Initial Plan: * Zofran PO * U-preg * 1111 pt reports headache better. will d/c with fioricet and pmd f/u Disposition Counseled Patient/Family Regarding: Studies Performed, Diagnosis, Need For Followup - Disposition Referrals: Samara Love MD [Staff Provider] - Augie Lama MD [Staff Provider] - Disposition: HOME/ ROUTINE Disposition Time: 11:12 Condition: IMPROVED Additional Instructions: Follow up with Dr Love and also with neurology for chronic migraines. 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 (Connie Beth) - Scribe Statement The provider has reviewed the documentation as recorded by the Scribe (Connie Beth) All medical record entries made by the Scribe were at my direction and personally dictated by me. I have reviewed the chart and agree that the record accurately reflects my personal performance of the history, physical exam, medical decision making, and the department course for this patient. I have also personally directed, reviewed, and agree with the discharge instructions and disposition.
== END 2018-12-19 11:16 | disposition home or self-care (01) ==
LOC: C.ER 09:40
DX: G43.909 Migraine, unspecified, not intractable, without status migrainosus (principal)